=== PATIENT | male | born 1935 | race Caucasian/White ===

== ENCOUNTER 2019-03-31 07:45 | Day surgery (SDC) | payer MEDICARE, OTHER ==
[~2019-03-31 07:45] MED LIST: Lactated Ringers 1,000 ML IV SCH
[2019-03-31] MEDS ORDERED: Meropenem 500 MG in Sodium Chloride 0.9% 50 ML IV ONE (08:00)
[2019-03-31] MEDS ORDERED: Propofol 200 MG/20 ML SDV ONE (10:08)
[2019-03-31] MEDS ORDERED: Labetalol 20 MG/4 ML Syringe IV ONE ×2 (10:30→11:15)
[2019-03-31] MEDS ORDERED: Labetalol 20 MG/4 ML Syringe IVPUSH ONE (10:43)
[2019-03-31] MEDS ORDERED: Sodium Chloride 0.9% 80 ML IV ONE (11:28)
[2019-03-31] MEDS ORDERED: Sodium Chloride 0.9% 10 ML Syringe FLUSH ONE (11:28)
[2019-03-31] MEDS ORDERED: Iopamidol 612 MG/ML 100 ML Bottle IV SCH (11:30)
[2019-03-31 13:00] VITALS: BP 119/81
--- NOTE | 2019-03-31 13:33 | CRLCT ---
INDICATION: Rectal carcinoma. TECHNIQUE: CT chest, abdomen and pelvis acquired with 100 cc Isovue IV contrast. COMPARISON: CT abdomen pelvis October 09, 2016. FINDINGS: CHEST Lungs and pleura: Lungs are clear. No suspicious nodules or infiltrates. No effusions, thickening, or pneumothorax. Heart and vasculature: Heart size is normal. Thoracic aorta and pulmonary artery are normal in caliber. Lymph node/mediastinum: No mediastinal, hilar, or axillary adenopathy. Thyroid gland is normal. Chest wall: Normal. Bones: No suspicious bone lesions. ABDOMEN AND PELVIS: Liver: Small ill-defined 10 mm low attenuation lesion is in the inferior right lobe on series 2, image 125. Gallbladder and bile ducts: Unremarkable. Pancreas: Unremarkable. Spleen: Normal in caliber. No masses. Adrenal glands: Unremarkable. No masses. Kidneys: Multiple benign-appearing cysts are present. Otherwise unremarkable kidneys. GI tract: There is wall thickening in the rectal region. Remainder of the GI tract is within normal limits in caliber and appearance. The appendix is minimally enlarged with mild adjacent fat stranding as demonstrated on series 2, image 175. Vasculature: Unremarkable. Mesenteric arteries are patent. Lymph nodes: No lymphadenopathy. Omentum/peritoneum/retroperitoneum/abdominal wall: No masses or infiltration. No free air or significant free fluid. Pelvic organs: Marked prostate gland enlargement. Urinary bladder is unremarkable. Bones: No suspicious bone lesions. IMPRESSION: 1. Wall thickening in the rectum consistent with the diagnosis of rectal carcinoma. 2. Single small 10 mm lesion in the inferior right lobe of the liver is too small to characterize. This could be further evaluated with ultrasound. 3. No other signs of acute or metastatic disease in the chest, abdomen or pelvis. 4. Prostatomegaly. Please note that all CT scans at this facility use dose modulation, iterative reconstruction, and/or weight-based dosing when appropriate to reduce radiation dose to as low as reasonably achievable. Dictated by William Eden MD @ Mar 31 2019 1:02PM Signed by Dr. William Eden @ Mar 31 2019 1:31PM
--- NOTE | 2019-04-01 13:49 | OR ---
DATE OF PROCEDURE: 03/31/2019 SURGEON: Sanchez Davdi MD PREOPERATIVE DIAGNOSIS: Rectal bleeding. 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 OPERATIVE PROCEDURE: Flexible colonoscopy with: 1. Polypectomy of edge of rectal carcinoma by snare technique (44347). 2. Multiple biopsies of a rectal mass (26018). ANESTHESIA: IV sedation. INDICATIONS FOR PROCEDURE: This is an 83-year-old presenting with some rectal bleeding, generally occurring after bowel movements. Our initial assumption was this was probably going to be a problem of internal hemorrhoids. To rule out other problems, plan was made to proceed with a flexible colonoscopy with biopsies and/or polypectomy as indicated. Potential risks of the procedure including bleeding and perforation were discussed, and the patient wishes to proceed. DETAILS OF PROCEDURE: The patient was taken to the operating room and placed in a left lateral decubitus position. IV sedation was administered, after which the initial digital rectal exam was performed. At the very tip of the finger with fairly hard upper pressure, a mass effect was able to be palpated. The scope was then passed into the rectum. The patient was noted to have no significant hemorrhoids, but did have an obvious carcinoma occupying roughly one third of the circumference beginning at around 6 mm from the dentate line. This had some blood on the surface. At that point, the scope was passed beyond that, and the remainder of the colon to the level of the cecum was otherwise unremarkable. At this point, a polypoid edge of the mass was excised by means of a snare cautery, and that segment, which was roughly the size of a pea, was sent intact as a separate specimen. Multiple biopsies were then obtained at various points around the rectal mass and sent for histologic evaluation as well. There was a small amount of bleeding present, which seemed to stop at the time the procedure was ended, and the scope was then withdrawn, and the procedure then concluded. This was a tumor that is low enough that there may be venous flow into the pudendal system, i.e. he would be at high risk for nonliver metastasis. Given this, the patient underwent a CAT scan of the chest, abdomen, and pelvis. This showed questionable lesion in the liver, which will probably be benign and will be per the radiologic recommendations assessed with ultrasound on Thursday. Otherwise, the patient was noted to have the obvious rectal mass, but no other additional pathology was seen on CT scan. The plan will be to set the patient up with Medical Oncology appointment for this coming Thursday, which by then we should have a pathology report. This case probably would be best treated with preoperative chemoradiation followed by resection, which at that point should be reasonably likely to have a primary anastomosis, along with a proximal ileostomy diversion as a temporary measure. This was all discussed with the patient, as well as the patient's , who is Dr. Castellanos, and they wished to proceed in that direction. Sanchez David MD /[id number]
== END 2019-03-31 13:56 | disposition home or self-care (01) ==
LOC: JP.SDS 07:45
PROVIDERS: ATTEND Surgery
DX: C20 Malignant neoplasm of rectum (principal); D12.8 Benign neoplasm of rectum; I10 Essential (primary) hypertension; E78.5 Hyperlipidemia, unspecified; N17.9 Acute kidney failure, unspecified; N40.0 Benign prostatic hyperplasia without lower urinary tract symptoms; J44.9 Chronic obstructive pulmonary disease, unspecified; M48.00 Spinal stenosis, site unspecified; G89.4 Chronic pain syndrome; M54.9 Dorsalgia, unspecified; F32.9 Major depressive disorder, single episode, unspecified; Z79.899 Other long term (current) drug therapy; Z79.1 Long term (current) use of non-steroidal anti-inflammatories (NSAID)
CPT/HCPCS: 36415; 45380; 45385; 71260; 74177; 80053; 82378; 85027; J2185; J2704; J3490; J7030; J7050; J7120; Q9967

== ENCOUNTER 2019-08-04 09:51 | Inpatient (IN) | payer MEDICARE, OTHER ==
[2019-08-04] MEDS: Scopolamine 1.5 MG Transdermal Patch TOP SCH (10:12)
[2019-08-04] MEDS: Dextrose 5%-Lactated Ringers 1,000 ML IV SCH ×2 (10:13→19:44)
[2019-08-04] MEDS ORDERED: Gabapentin 300 MG Cap PO ONE (10:30)
[2019-08-04] MEDS ORDERED: Acetaminophen 500 MG Tab PO ONE (10:30)
[2019-08-04] MEDS ORDERED: cefOXitin 2 GM in Sodium Chloride 0.9% 50 ML IV ONE (10:30)
[2019-08-04] MEDS ORDERED: Meropenem 500 MG SDV ONE ×3 (11:39→17:12)
[2019-08-04] MEDS ORDERED: Succinylcholine 200 MG/10 ML MDV ONE (11:48)
[2019-08-04] MEDS ORDERED: Dexamethasone 4 MG/ML SDV ONE (11:48)
[2019-08-04] MEDS ORDERED: Rocuronium 50 MG/5 ML Vial ONE ×2 (11:48→14:27)
[2019-08-04] MEDS ORDERED: Neostigmine Methylsulfate 1 MG/ML 5 ML Syringe ONE (11:48)
[2019-08-04] MEDS ORDERED: Glycopyrrolate 0.2 MG/ML 5 ML MDV ONE (11:48)
[2019-08-04] MEDS ORDERED: Ondansetron 4 MG/2 ML SDV ONE (11:48)
[2019-08-04] MEDS ORDERED: Propofol 200 MG/20 ML SDV ONE (11:48)
[2019-08-04] MEDS ORDERED: fentaNYL 250 MCG/5 ML SDV ONE (11:48)
[2019-08-04] MEDS ORDERED: Sodium Chloride 0.9% 10 ML ONE ×2 (11:52→13:12)
[2019-08-04] MEDS ORDERED: Naloxone 0.4 MG/ML SDV IVPUSH PRN ×3 (12:30→19:09)
[2019-08-04] MEDS ORDERED: Lactated Ringers 1,000 ML ONE ×2 (12:45→15:04)
[2019-08-04] MEDS ORDERED: ePHEDrine 50 MG/ML SDV ONE (13:12)
[2019-08-04] MEDS ORDERED: Phenylephrine 1% 10 MG/ML SDV ONE (13:30)
[2019-08-04] MEDS ORDERED: Atropine 0.4 MG/ML SDV ONE (14:31)
[2019-08-04] MEDS ORDERED: Ondansetron 4 MG/2 ML SDV IVPUSH PRN (17:46)
[2019-08-04] MEDS ORDERED: hydrOXYzine HCl 100 MG/2 ML SDV IM PRN (17:47)
[2019-08-04] MEDS ORDERED: Metoclopramide 10 MG/2 ML SDV IVPUSH ONE (17:55)
[2019-08-04] MEDS ORDERED: Naloxone 0.4 MG/ML SDV IVPUSH ONE (17:55)
[2019-08-04] MEDS ORDERED: Meperidine PF 25 MG/ML Syringe IVPUSH ONE (17:55)
[2019-08-04] MEDS ORDERED: Labetalol 100 MG/20 ML MDV IVPUSH PRN (17:55)
[2019-08-04] MEDS ORDERED: Ondansetron 4 MG/2 ML SDV IVPUSH ONE (17:55)
[2019-08-04] MEDS: fentaNYL 2,500 MCG in Sodium Chloride 0.9% 200 ML EPIDUR SCH (18:00)
[2019-08-04] MEDS ORDERED: Atropine 0.1 MG/ML 10 ML Syringe IV PRN (18:01)
[2019-08-04] MEDS ORDERED: fentaNYL/Normal Saline 600 MCG/30 ML PCA Vial IV PRN (18:39)
[2019-08-04] MEDS ORDERED: diphenhydrAMINE 50 MG/ML SDV IV PRN (18:42)
[2019-08-04] MEDS ORDERED: Naloxone 0.4 MG/ML SDV IV PRN (19:09)
[2019-08-04] MEDS ORDERED: fentaNYL 2,500 MCG in Sodium Chloride 0.9% 200 ML EPIDUR SCH (19:09)
[2019-08-04] MEDS: cefOXitin 2 GM in Sodium Chloride 0.9% 50 ML IV SCH (19:44)
[2019-08-04] MEDS: Acetaminophen 500 MG Tab PO SCH (19:59)
[2019-08-04] MEDS ORDERED: Dorzolamide 2% Ophth Soln 10 ML Bottle EYEBOTH SCH (21:00)
[2019-08-05] MEDS: cefOXitin 2 GM in Sodium Chloride 0.9% 50 ML IV SCH ×5 (00:21→23:55)
[2019-08-05] MEDS: Acetaminophen 500 MG Tab PO SCH ×4 (00:21→17:01)
[2019-08-05] MEDS: Dextrose 5%-Lactated Ringers 1,000 ML IV SCH ×4 (05:46→21:43)
[2019-08-05] MEDS ORDERED: Calcium Carbonate 500 MG Tab.Chew PO PRN (07:47)
[2019-08-05] MEDS: Dutasteride 0.5 MG Cap PO SCH (08:02)
[2019-08-05] MEDS: SCOPOLAMINE PATCH CHECK TOP SCH (08:04)
[2019-08-05] MEDS: Timolol Maleate 0.5% Ophth Soln 5 ML Bottle EYEBOTH SCH (08:05)
[2019-08-05] MEDS: Mirabegron 25 MG Tab Extended Release PO SCH (08:08)
[2019-08-05] MEDS: Aspirin 81 MG Tab.Chew PO SCH (08:08)
[2019-08-05] MEDS: Gabapentin 300 MG Cap PO SCH (08:08)
[2019-08-05] MEDS: Venlafaxine 75 MG Cap.ER PO SCH (08:08)
[2019-08-05] MEDS: amLODIPine 5 MG Tab PO SCH (08:09)
[2019-08-05] MEDS: Metoprolol Succinate 25 MG Tab.ER PO SCH (08:09)
[2019-08-05] MEDS: Dorzolamide 2% Ophth Soln 10 ML Bottle EYERT SCH (08:09)
[2019-08-05] MEDS: Tamsulosin 0.4 MG Cap.ER PO SCH ×2 (09:56→16:56)
--- NOTE | 2019-08-05 10:40 | PN ---
DATE OF SERVICE: 08/05/2019 SUBJECTIVE: Dalton is postop day 1. He has an epidural and pain has been controlled. Vital signs have been stable. He is alert and orientated. Oral intake 780 and urine output 435, and CHLOE put out 140 mL of a light red drainage. His urine output was marginal between 30 and 40 postop. Blood sugar was noted at 226 and will be continued to be watched. REVIEW OF SYSTEMS: Remainder of review of systems negative for any pertinent positives and negatives. OBJECTIVE: GENERAL: Dalton Carey is an 84-year-old male. He is alert and orientated. VITAL SIGNS: TPR 95.9, 78, 14, blood pressure 151/74. HEENT: Negative. NECK: Supple. HEART: Regular rate and rhythm. LUNGS: Clear. ABDOMEN: Dressing dry and intact. Abdominal binder is on. EXTREMITIES: Without peripheral edema. ASSESSMENT: Exploratory laparotomy with rectosigmoid resection with low coloproctostomy and ileostomy for low rectal adenocarcinoma status post neoadjuvant E COMMERCE STRATEGIST. Date of surgery, 08/04/2019. PLAN: 1. Decrease IV to 100 mL/hour at 1800. 2. Schedule delayed primary closure on 08/06/2019 with IV/local/TAP block at 0730, Sanchez David MD. NPO after midnight. 3. Soft solid diet. 4. Communication order that he may have and his will bring it in. 5. Flomax 0.4 mg b.i.d. starting this a.m. Good pulmonary toilet. We will evaluate p.r.n. or in a.m. Liz Dai PA-C /[id number]
[2019-08-05] MEDS ORDERED: Lactated Ringers 500 ML IV ONE ×2 (11:42→15:43)
[2019-08-05] MEDS ORDERED: Dextrose 5%-Lactated Ringers 1,000 ML IV SCH (18:00)
[2019-08-05] MEDS ORDERED: Furosemide 20 MG/2 ML VIAL IVPUSH ONE (21:35)
[2019-08-05] MEDS: fentaNYL 2,500 MCG in Sodium Chloride 0.9% 200 ML EPIDUR SCH (21:41)
[2019-08-06] MEDS: Acetaminophen 500 MG Tab PO SCH ×4 (00:39→17:27)
[2019-08-06] MEDS: Dextrose 5%-Lactated Ringers 1,000 ML IV SCH ×3 (04:04→19:17)
[2019-08-06] MEDS: cefOXitin 2 GM in Sodium Chloride 0.9% 50 ML IV SCH ×2 (05:14→11:04)
[2019-08-06] MEDS ORDERED: Bupivacaine 0.5% 50 ML MDV ONE (06:19)
[2019-08-06] MEDS ORDERED: Lidocaine 1% with EPINEPHrine 1:100,000 50 ML MDV ONE (06:20)
[2019-08-06] MEDS ORDERED: Meropenem 500 MG SDV ONE (06:23)
[2019-08-06] MEDS ORDERED: Propofol 200 MG/20 ML SDV ONE (07:17)
[2019-08-06] MEDS ORDERED: fentaNYL 100 MCG/2 ML SDV ONE (07:36)
[2019-08-06] MEDS: Furosemide 20 MG/2 ML VIAL IVPUSH SCH ×2 (10:07→22:02)
[2019-08-06] MEDS: SCOPOLAMINE PATCH CHECK TOP SCH (10:50)
[2019-08-06] MEDS: traMADol 50 MG Tab PO SCH ×3 (10:51→22:02)
[2019-08-06] MEDS: Aspirin 81 MG Tab.Chew PO SCH (10:57)
[2019-08-06] MEDS: Mirabegron 25 MG Tab Extended Release PO SCH (10:57)
[2019-08-06] MEDS: Tamsulosin 0.4 MG Cap.ER PO SCH ×2 (10:57→17:27)
[2019-08-06] MEDS: Venlafaxine 75 MG Cap.ER PO SCH (10:58)
[2019-08-06] MEDS: Dutasteride 0.5 MG Cap PO SCH (10:58)
[2019-08-06] MEDS: Dorzolamide 2% Ophth Soln 10 ML Bottle EYERT SCH (10:59)
[2019-08-06] MEDS: Gabapentin 300 MG Cap PO SCH (10:59)
[2019-08-06] MEDS: amLODIPine 5 MG Tab PO SCH (10:59)
[2019-08-06] MEDS: Timolol Maleate 0.5% Ophth Soln 5 ML Bottle EYEBOTH SCH (10:59)
[2019-08-06] MEDS: Metoprolol Succinate 25 MG Tab.ER PO SCH (11:00)
[2019-08-07] MEDS: Acetaminophen 500 MG Tab PO SCH ×5 (00:05→23:14)
[2019-08-07] MEDS: traMADol 50 MG Tab PO SCH ×4 (03:21→21:43)
[2019-08-07] MEDS: Dextrose 5%-Lactated Ringers 1,000 ML IV SCH (04:54)
[2019-08-07] MEDS: fentaNYL 2,500 MCG in Sodium Chloride 0.9% 200 ML EPIDUR SCH (04:58)
[2019-08-07] MEDS ORDERED: Magnesium Sulfate/Water 2 GM in Premix Bag 1 BAG IV SCH (08:00)
[2019-08-07] MEDS ORDERED: Furosemide 20 MG/2 ML VIAL IVPUSH ONE (09:00)
[2019-08-07] MEDS: Tamsulosin 0.4 MG Cap.ER PO SCH ×2 (09:55→16:31)
[2019-08-07] MEDS: Aspirin 81 MG Tab.Chew PO SCH (09:56)
[2019-08-07] MEDS: amLODIPine 5 MG Tab PO SCH (09:56)
[2019-08-07] MEDS: Venlafaxine 75 MG Cap.ER PO SCH (09:57)
[2019-08-07] MEDS: Gabapentin 300 MG Cap PO SCH (09:57)
[2019-08-07] MEDS: Mirabegron 25 MG Tab Extended Release PO SCH (09:57)
[2019-08-07] MEDS: Metoprolol Succinate 25 MG Tab.ER PO SCH (09:58)
[2019-08-07] MEDS: Dorzolamide 2% Ophth Soln 10 ML Bottle EYERT SCH (09:59)
[2019-08-07] MEDS: Timolol Maleate 0.5% Ophth Soln 5 ML Bottle EYEBOTH SCH (10:00)
[2019-08-07] MEDS: SCOPOLAMINE PATCH CHECK TOP SCH (10:00)
[2019-08-07] MEDS: Dutasteride 0.5 MG Cap PO SCH (10:01)
[2019-08-07] MEDS: Prochlorperazine 10 MG Tab PO PRN ×3 (10:29→23:14)
[2019-08-07] MEDS: Potassium Phosphates 22.5 MMOLE in Sodium Chloride 0.9% 250 ML IV SCH ×2 (12:50→15:52)
[2019-08-07] MEDS: Scopolamine 1.5 MG Transdermal Patch TOP SCH (14:47)
[2019-08-07] MEDS: Magnesium Sulfate/Water 2 GM in Premix Bag 1 BAG IV SCH ×2 (18:46→21:00)
[2019-08-07] MEDS: Sodium Chloride 0.9% 500 ML IV SCH (18:46)
[2019-08-08] MEDS: Magnesium Sulfate/Water 2 GM in Premix Bag 1 BAG IV SCH ×4 (04:01→22:42)
[2019-08-08] MEDS: traMADol 50 MG Tab PO SCH (04:01)
[2019-08-08] MEDS: Acetaminophen 500 MG Tab PO SCH ×3 (05:57→17:24)
[2019-08-08] MEDS ORDERED: traMADol 50 MG Tab PO PRN (07:11)
[2019-08-08] MEDS: Tamsulosin 0.4 MG Cap.ER PO SCH ×2 (07:55→16:37)
[2019-08-08] MEDS: Aspirin 81 MG Tab.Chew PO SCH (08:55)
[2019-08-08] MEDS: amLODIPine 5 MG Tab PO SCH (08:55)
[2019-08-08] MEDS: Venlafaxine 75 MG Cap.ER PO SCH (08:56)
[2019-08-08] MEDS: Mirabegron 25 MG Tab Extended Release PO SCH (08:56)
[2019-08-08] MEDS: Dutasteride 0.5 MG Cap PO SCH (08:57)
[2019-08-08] MEDS: Metoprolol Succinate 25 MG Tab.ER PO SCH (08:58)
[2019-08-08] MEDS ORDERED: Furosemide 20 MG/2 ML VIAL IV ONE (09:00)
[2019-08-08] MEDS: Dorzolamide 2% Ophth Soln 10 ML Bottle EYERT SCH (09:00)
[2019-08-08] MEDS: SCOPOLAMINE PATCH CHECK TOP SCH (09:00)
[2019-08-08] MEDS: Timolol Maleate 0.5% Ophth Soln 5 ML Bottle EYEBOTH SCH (09:00)
[2019-08-08] MEDS: Gabapentin 300 MG Cap PO SCH (09:01)
--- NOTE | 2019-08-08 11:39 | OR ---
DATE OF PROCEDURE: 08/04/2019 SURGEON: Sanchez David MD PREOPERATIVE DIAGNOSIS: Low rectal adenocarcinoma. POSTOPERATIVE DIAGNOSIS: Low rectal adenocarcinoma. OPERATIVE PROCEDURES: Exploratory laparotomy with: 1. Rectosigmoid resection with low coloproctostomy (48555). 2. Diverting ileostomy (42364). 3. Mobilization of omentum into pelvis to displace small bowel from potential subsequent radiation radford (19098). ANESTHESIA: General plus epidural. SURVEY CREW CHIEF: Liz Dai PA-C. INDICATION FOR PROCEDURE: This is an 84-year-old male who was recently noted to have a fairly bulky low adenocarcinoma of the rectum. The patient successfully completed preoperative neoadjuvant chemoradiation treatment. The plan is to proceed with a resection of the tumor. Most likely, this one can be anastomosed with a low coloproctostomy. He is aware of possible need for a permanent colostomy if we are not able to get below the tumor adequately and thus requiring an abdominoperitoneal resection. If the anastomosis is able to be completed, a diverting ileostomy, which would need to be in place for at least 3 months, will be placed to protect the coloproctostomy. Potential risks of the procedure were reviewed with the patient including bleeding, infection, possible leaks from GI tract closures, possibility of incomplete resection on final pathology, as well as the possibility of local or distant recurrence, and lastly the possibility of cardiopulmonary, septic, or hemorrhagic complications leading to were discussed, and the patient likewise wishes to proceed. DETAILS OF PROCEDURE: The patient was taken to the operating room and placed in a supine position. After an epidural catheter had been placed, general endotracheal anesthesia was induced, and he was then converted to a lithotomy position. A Perez catheter was inserted, and the abdomen was prepped and draped. A midline incision from the pubis to the umbilicus was made and carried down through the full-thickness abdominal wall. Gentle exploration was undertaken. There was no ascites present and no evidence of any peritoneal implants. There did not appear to be any lymphadenopathy within the mesenteric vessels or periaortic areas, and liver was free of any obvious metastatic disease. The resection then began with division of the mid-sigmoid colon with the REMY stapler. The underlying mesentery was then divided and the superior hemorrhoidal vessels were then divided flushed with the takeoff at the level of the left colic vessel with REMY staplers. Both ureters at this point had been identified and were well away from the level of the resection. This then allowed entrance into the presacral plane. At that point, this could be fairly easily dissected down to the pelvic floor with a combination of blunt and Sonicision division of the tissues. Next, the peritoneal reflection of the rectum onto the urinary bladder and prostate was divided. This then allowed dissection into the plane just posterior to the prostate. Again, this being taken down to the level of the pelvic floor, consistent with a total mesorectal excision. The soft tissues more or less flush with the side of the pelvis were then sequentially divided with combination of emory and Sonicision device. This eventually got us down to the level of the tumor and somewhat below it. With hand at the level of the initial transection, a digital exam confirmed that this was below the tumor, and rectum was divided then with a series of REMY black loads. Off the field, the specimen was examined. The mucosal surface appeared to be fairly close to the tumor, probably about 1 cm and it was felt that it would be beneficial to try to get slightly more of a margin. The rectum was then further freed up with combination of cautery and Harmonic scalpel dissection and additional resection of the rectum then accomplished with a REMY stapler. The distal margin of this was then marked with a suture for pathologic exam. Of note, there did not appear to be any significant lymphadenopathy evident during the course of the resection. The appearance of the total mesorectal excision specimen, of note, was very satisfactory in terms of there being a nice glistening, that layer more or less surrounded the entire colon and rectum other than the area of the sigmoid colon above the peritoneal reflection. At this point, the descending colon was divided along the peritoneal reflection, and this allowed the divided colon to reach down into the depths of the pelvis without significant tension. 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 The anvil of this stapler was then placed through a small opening in divided colon, which was then re-stapled, and the anvil brought out roughly 3 cm proximal to the new staple line on the antimesenteric border. Again, this came down into the level of the pelvic floor without tension. The anus then needed to be digitally dilated somewhat to allow the main stapler to be passed into the anal opening and distal-most rectum. This was brought up and attached to the anvil and stapler then closed and fired, producing the coloproctostomy. Upon removal of the stapler, double donuts of mucosa were noted within it. The rectal side of the mucosal specimen was then sent as a final distal margin for pathologic review. The colon was then pinched off, and the pelvis then flooded with antibiotic-containing saline solution. Colonoscope was then passed into the rectum, and the anastomosis was visualized. It appeared to be entirely intact with good blood supply to the mucosa on both sides and no air bubbles were seen escaping from the area of the anastomosis. At this point, the abdomen was irrigated with antibiotic-containing saline solution. 6 mL of fibrin sealant was then placed circumferentially around the anastomosis. The anastomosis was too low to actually visualize with the patient having fairly narrow pelvis and somewhat enlarged urinary bladder, but the fibrin sealant could be passed with a flexible catheter circumferentially around the anastomosis. At this point, a Maycol-Boyd drain was then placed through stab wound in the left mid-abdomen and taken down into the depths of the pelvis and adjacent to the coloproctostomy. At this point, attention was taken to formation of the ileostomy. The ileum, roughly 20 cm proximal to the ileocecal valve, then came up to premarked location on the patient's right lower quadrant abdomen. A 2.5 cm circular area of skin was then resected at that level. The rectus muscle fibers were then spread, but not divided; and the peritoneum then opened and also spread wide enough to allow the ileostomy to be pulled. The distal and proximal ends of the ileum to be pulled upward were then marked with sutures for orientation, and the ileum was then easily pulled up through the ostomy site and then held in place there with a [place] clamp while the abdomen itself was being closed. The omentum was then mobilized downward into the pelvis in case the patient might need some additional radiation treatment, this would displace the small bowel out of the potential radiation field. This was sutured in place with some 3-0 Vicryl stitch to the area posterior to urinary bladder and pelvic sidewalls. The abdomen had been once again irrigated with a meropenem-containing saline solution. From the linea semilunaris downward, the posterior peritoneum was closed with a #2 Vicryl stitch and the anterior fascia was then closed for the length of incision with a #2 Vicryl stitch. The skin and subcutaneous tissue were then packed open with iodoform gauze. The ileostomy was then configured. Initially, 0 Vicryl suture was placed through the mesentery just below the site for the ileostomy and sutured to the fascia to help avoid it falling back into the abdomen. The distal end of the ileum, now up into the ileostomy site, was divided more or less 75% of its antimesenteric circumference. This then allowed the ileostomy sutured with series of interrupted and running 3-0 Vicryl sutures. This design would facilitate the vast majority of the liquid stool coming into the ileostomy, into the collection appliance, rather than going into the more distal small bowel. Once this was completed, the ileostomy appliance was applied, and the patient was taken to the recovery room in satisfactory condition. There were no evident complications. The patient tolerated the procedure well. Physician certified ophthalmic surgical assistant, Liz Dai, played an essential role in assisting in this case, helping to position the patient, retract structures as needed, as well as suturing and cutting sutures when indicated. Her presence improved patient safety and decreased the operative time. Sanchez David MD /[id number]
--- NOTE | 2019-08-08 11:39 | PN ---
DATE OF SERVICE: 08/08/2019 SUBJECTIVE: His Perez has been taken out. He is voiding every 1 to 1-1/2 hours. He said he is back to his "normal." Blood pressures have been running a little bit high, 160 to 190s/80 to 90s. He is getting magnesium riders. Enteric was discontinued because he started having bowel movements. Pain is controlled. Ultram was held. It was scheduled and nursing staff thought it made him confused, so it will be changed to p.r.n. REVIEW OF SYSTEMS: Remainder of review of systems negative for any pertinent positives or negatives. Of note, colostomy put out 575. OBJECTIVE: GENERAL: Dalton Carey is an 84-year-old male. He is alert and orientated. VITAL SIGNS: Temperature from 0227 was 95, pulse 95, respirations 18, blood pressure from 0316 was 180/82. HEENT: Negative. NECK: Supple. HEART: Regular rate and rhythm. LUNGS: Clear. ABDOMEN: Dressing dry and intact. Ileostomy intact, and there is stool noted, and emory intact. EXTREMITIES: Without peripheral edema. ASSESSMENT: Exploratory laparotomy with rectosigmoid resection with low coloproctostomy and ileostomy for low rectal adenocarcinoma, status post neoadjuvant MANAGER CULTURE. Date of surgery 08/04/2019. PLAN: 1. Lasix 10 mg IV this a.m. 2. Check BMP, phos, CBC in a.m. 3. Ultram (tramadol) 50 mg every 6 hours p.r.n. pain. 4. Good pulmonary toilet. 5. We will evaluate p.r.n. or in a.m. 6. Plan discharge in a.m. to Home Healthcare. Liz Dai PA-C /[id number]
--- NOTE | 2019-08-08 11:40 | OR ---
DATE OF PROCEDURE: 08/06/2019 SURGEON: Sanchez David MD PREOPERATIVE DIAGNOSIS: Open abdominal incision. POSTOPERATIVE DIAGNOSIS: Open abdominal incision. PROCEDURE: Delayed primary closure of open abdominal incision. ANESTHESIA: Local plus IV sedation. INDICATION FOR PROCEDURE: The patient is 48 hours status post a low anterior resection with some inherent contamination, is felt to be at high of risk for a wound infection if primary closure was undertaken. Given this at the time of procedure, skin and subcutaneous tissue were packed open for a planned delayed primary closure at this time. Potential risks including bleeding and infection were discussed, and the patient wishes to proceed. DETAILS OF PROCEDURE: The patient was taken to the operating room and placed in a supine position with the head up roughly 30 degrees to minimize aspiration risk. The abdominal dressing was then taken down and the abdomen prepped and draped. The wound was inspected and found to be clean and the area was then prepped and draped. Bilateral subcostal transversus abdominis plane blocks were then placed using ultrasound guidance and the incision then anesthetized with 1% lidocaine mixed with Marcaine and irrigated with a meropenem-containing saline solution. The deeper soft tissue was approximated with a deeper layer of 3-0 Vicryl stitch, subdermal layer with 4-0 Vicryl stitch, and emory for the skin and dressing was applied. There were no other complications. The patient was taken to the recovery room in satisfactory condition. Sanchez David MD /[id number]
--- NOTE | 2019-08-08 11:54 | PN ---
DATE OF SERVICE: 08/06/2019 The patient has been afebrile with stable vital signs. Nursing thought there maybe a little bit of fluid overload last night and received 20 of Lasix IV. He had a fair amount of urine output. His IV rate has been running around 40 mL now. Did believe the IV rate running a little faster today during the daytime and perhaps we give him some Lasix. We will recheck some labs in the morning. Otherwise, he has had a little bit of nausea, but the ileostomy is working satisfactorily. Pain control with the epidural is quite good, and we will leave that along with Perez catheter in for today, and we will probably get those out tomorrow. He underwent the delayed primary closure without incident. Sanchez David MD /[id number]
--- NOTE | 2019-08-08 12:25 | PN ---
DATE OF SERVICE: 08/07/2019 The patient has been afebrile with stable vital signs. Urine output has now picked up fairly well. His creatinine actually decreased to 0.6, and BNP is in the 300 range. Oral intake is fairly good. He still does have a little bit of intermittent nausea and some hiccups, for which he takes Compazine at home for. Magnesium, phosphate, and potassium are all marginally low. Those will be supplemented. Otherwise, I think we will give him one more dose of Lasix this morning. Otherwise, the idea will be to keep open, discontinue epidural catheter and Perez catheter, have him get in the shower to bathe, and arrange ileostomy training and supplies to be set up for tomorrow for planned probable discharge on Thursday. Sanchez David MD /[id number]
[2019-08-08] MEDS: Sodium Chloride 0.9% 500 ML IV SCH (15:47)
[2019-08-09] MEDS: Acetaminophen 500 MG Tab PO SCH ×3 (00:38→12:56)
[2019-08-09] MEDS: Magnesium Sulfate/Water 2 GM in Premix Bag 1 BAG IV SCH (04:09)
[2019-08-09] MEDS ORDERED: Potassium Chloride 20 MEQ Tab.ER PO ONE ×2 (05:19→09:00)
[2019-08-09] MEDS ORDERED: Potassium Chloride 20 MEQ in Premix Bag 1 BAG IV ONE ×2 (05:21→07:30)
--- NOTE | 2019-08-09 08:23 | DISCH ---
ADMISSION DIAGNOSES: 1. Rectal cancer. 2. Hypertension. 3. Depression. 4. Unspecified hyperlipidemia. 5. Benign prostate hyperplasia. 6. PSA elevation. 7. Overactive bladder. 8. Incomplete bladder emptying. 9. Spinal stenosis. 10.Chronic obstructive pulmonary disease. DISCHARGE DIAGNOSES: Exploratory laparotomy with: 1. Rectosigmoid resection with low coloproctostomy. 2. Diverting ileostomy. 3. Mobilization of omentum into pelvis to displace small bowel from potential subsequent radiation field. POSTOPERATIVE DIAGNOSES: 1. Low rectal adenocarcinoma. Date of surgery: 08/04/2019. 2. Delayed primary closure on 08/06/2019. HISTORY: Dalton is a pleasant 84-year-old male who was recently noted to have a fairly bulky low adenocarcinoma of the rectum. He completed preoperative neoadjunct chemoradiation treatment. The plan is to proceed with resection of the tumor. After preoperative evaluation, discussion of possible risks and possible complications, he wished to proceed with surgical procedure. HOSPITAL COURSE: Dalton had his surgery on 08/04/2019. He had no operative complications. His diet was advanced. He had delayed primary. His pain was controlled with an epidural. He had delayed primary closure on 08/06/2019. He continued to progress. He ambulated well as pain was controlled. He started having bowel movements through his ileostomy. Adequate ileostomy teaching was done. He did have difficulty voiding which is chronic for him. His folding had to be put back in after it was taken out when the epidural was discontinued. Currently, on Flomax in addition to his other medications for urination and he feels like this is helping quite a bit. Throughout his hospitalization, magnesium and K-Phos were replaced. He continued to progress. He will be able to be discharged to home in stable condition on 08/09/2019. PHYSICAL EXAMINATION: GENERAL: Dalton is an 84-year-old male. VITAL SIGNS: Height is 5 feet 10.8 inches, weight is 188 pounds. TPR is 96.3, 94, 16, blood pressure 157/76. HEENT: Negative. NECK: Supple. HEART: Regular rate and rhythm. LUNGS: Clear. ABDOMEN: Ileostomy and intact. Stapled incision is healing well. EXTREMITIES: Without peripheral edema. DISPOSITION: Discharged to home with home health care agent. CONDITION: Stable and improving. HOME MEDICATIONS: 1. Klor-Con 20 mEq p.o. daily, #14. 2. Flomax 0.4 mg p.o. b.i.d. #60, 11 refills. 3. He is to take Tylenol Extra Strength 1000 mg every 6 hours p.r.n. pain. 4. Norvasc 5 mg oral daily. 5. Aspirin 81 mg oral daily. 6. Trusopt 2% ophthalmic solution, take as directed. 7. Dorzolamide HCL one drop in each eye b.i.d. 8. Avodart 0.5 mg p.o. daily. 9. Gabapentin 300 mg daily. 10.Metoprolol-XL 12.5 mg p.o. daily. 11.Mirabegron ER 50 mg p.o. daily. 12.Compazine 10 mg every 6 hours. 13.Timoptic 0.5%, Ocudose drop, one drop in each eye daily. 14.Venlafaxine 225 mg p.o. daily. FOLLOWUP APPOINTMENT: Sanchez David MD, on 08/17/2019 at 11 a.m. DIET: Regular diet as tolerated. Drink 8 to 10 glasses of water a day. ACTIVITY: No lifting greater than 10 pounds for 1 week. Walk at least 6 times daily, distance and time as tolerated. Driving: Do not drive for 1 week. Shower/Bathing: May shower. Keep operative site clean and dry. Wear abdominal binder if you feel it is comfortable. DISCHARGE INSTRUCTIONS: Notify provider if any fever, increased pain, nausea, vomiting. Use incentive spirometer 10 times every hour while awake.
[2019-08-09] MEDS ORDERED: Potassium Chloride 20 MEQ, Lidocaine 1% 2 ML in Sodium Chloride 0.9% 100 ML IV ONE (08:30)
[2019-08-09] MEDS: Dutasteride 0.5 MG Cap PO SCH (08:54)
[2019-08-09] MEDS: Tamsulosin 0.4 MG Cap.ER PO SCH (08:54)
[2019-08-09] MEDS: Venlafaxine 75 MG Cap.ER PO SCH (08:54)
[2019-08-09] MEDS: Aspirin 81 MG Tab.Chew PO SCH (08:54)
[2019-08-09] MEDS: Metoprolol Succinate 25 MG Tab.ER PO SCH (08:55)
[2019-08-09] MEDS: Mirabegron 25 MG Tab Extended Release PO SCH (08:55)
[2019-08-09] MEDS: Gabapentin 300 MG Cap PO SCH (08:55)
[2019-08-09] MEDS: amLODIPine 5 MG Tab PO SCH (08:56)
[2019-08-09] MEDS: SCOPOLAMINE PATCH CHECK TOP SCH (08:57)
[2019-08-09] MEDS: Timolol Maleate 0.5% Ophth Soln 5 ML Bottle EYEBOTH SCH (08:58)
[2019-08-09] MEDS: Dorzolamide 2% Ophth Soln 10 ML Bottle EYERT SCH (08:58)
[2019-08-09] MEDS ORDERED: Potassium Chloride 20 MEQ Tab.ER PO SCH (09:00)
[2019-08-09 11:33] VITALS: BP 174/88; PULSE 91
== END 2019-08-09 13:54 | disposition home health service (06) | DRG 331 ==
LOC: JP.SDSSCHI 09:51 → JP.SDS 09:51 → EDSTATUS 12:25 → JP.MS 17:30
PROVIDERS: ADMIT Surgery; ATTEND Surgery
PROC: 0D1B0Z4 Bypass Ileum to Cutaneous, Open Approach (ICD-10-PCS; principal; 2019-08-04)
PROC: 0D1M0ZP Bypass Descending Colon to Rectum, Open Approach (ICD-10-PCS; 2019-08-04)
PROC: 0DTN0ZZ Resection of Sigmoid Colon, Open Approach (ICD-10-PCS; 2019-08-04)
PROC: 0DTP0ZZ Resection of Rectum, Open Approach (ICD-10-PCS; 2019-08-04)
PROC: 0DJD8ZZ Inspection of Lower Intestinal Tract, Via Natural or Artificial Opening Endoscopic (ICD-10-PCS; 2019-08-04)
PROC: 0WQF0ZZ Repair Abdominal Wall, Open Approach (ICD-10-PCS; 2019-08-06)
DX: C20 Malignant neoplasm of rectum (principal); I10 Essential (primary) hypertension; F32.9 Major depressive disorder, single episode, unspecified; E78.5 Hyperlipidemia, unspecified; N32.81 Overactive bladder; J44.9 Chronic obstructive pulmonary disease, unspecified; N40.1 Benign prostatic hyperplasia with lower urinary tract symptoms; R33.8 Other retention of urine; M48.061 Spinal stenosis, lumbar region without neurogenic claudication; E87.70 Fluid overload, unspecified; M17.0 Bilateral primary osteoarthritis of knee; G89.29 Other chronic pain; M54.42 Lumbago with sciatica, left side; Z79.899 Other long term (current) drug therapy; Z79.82 Long term (current) use of aspirin; Z98.890 Other specified postprocedural states; Z90.89 Acquired absence of other organs
CPT/HCPCS: 36415; 51702; 80048; 80053; 82378; 83735; 83880; 84100; 85025; 85027; 86850; 86900; 86901; 88305; 88309; 94762; A9270-GY; J0171; J0330; J0461; J0694; J1100; J1940; J2001; J2185; J2370; J2405; J2704; J2710; J2795; J3010; J3475; J3480; J3490; J7030; J7040; J7042; J7050; J7120; Q0164

== ENCOUNTER 2019-08-24 12:15 | Inpatient (IN) | payer MEDICARE, OTHER ==
--- NOTE | 2019-08-24 15:24 | PCM.HP.2 ---
H&P History of Present Illness - General Date of Service: 08/24/19 Admit Problem/Dx: Admission Diagnosis/Problem Admission Diagnosis/Problem Acute renal failure Source of Information: Patient, Family, Provider History Limitations: Reports: No Limitations - History of Present Illness Initial Comments - Free Text/Narative: CC: sent for fluids HPI: Abdi presents today from the outpatient setting where he was referred for laboratory testing and IV fluid hydration. Laboratory studies revealed a creatinine of 3.5 with a BUN of nearly 100. He has mild hyponatremia. Direct admission for hydration and treatment of acute kidney injury was recommended. He reports that in general he feels okay other than feeling weak and tired. He has lost more than 40 pounds recently. He has been struggling with high output from his ileostomy but this seems to be slowing some. No significant abdominal pain. Did have some vomiting a few days ago but this has resolved. Appetite has been significantly decreased. He has been doing his best to push fluids and has had some IV fluids but remains dehydrated. No fevers. He is short of breath but this is baseline with a COPD. He is taking Bactrim to treat a possible infection in the abdomen after a fluid collection was noted on CT scan and his white blood cell count was mildly elevated. - Related Data Allergies/Adverse Reactions: Allergies Allergy/AdvReac Type Severity Reaction Status Date / Time No Known Allergies Allergy Verified 08/04/19 10:58 Home Medications: Home Meds Dutasteride [Avodart] 0.5 mg PO DAILY 08/08/16 [History] Timolol Maleate/PF [Timoptic 0.5% Ocudose Drop] 1 drop EYEBOTH DAILY 08/08/16 [ History] Venlafaxine [Effexor XR] 225 mg PO DAILY 08/08/16 [History] Metoprolol Succinate [Toprol XL] 12.5 mg PO DAILY 03/29/19 [History] Mirabegron [Myrbetriq] 50 mg PO DAILY 03/29/19 [History] amLODIPine [Norvasc] 5 mg PO DAILY 03/29/19 [History] Dorzolamide HCl 1 drop EYEBOTH BID 08/02/19 [History] Prochlorperazine [Compazine] 10 mg PO Q6HR PRN 08/02/19 [History] Dorzolamide [Trusopt 2% Ophth Soln] 10 ml EYERT DAILY 08/04/19 [History] Acetaminophen [Tylenol Extra Strength] 500 mg PO BID 08/24/19 [History] Sulfamethoxazole/Trimethoprim [Bactrim Ds Tablet] 1 tab PO BID 08/24/19 [History ] Past Medical History HEENT History: Reports: Cataract, Impaired Vision Cardiovascular History: Reports: Hypertension Respiratory History: Reports: COPD Gastrointestinal History: Reports: Other (See Below) Other Gastrointestinal History: history of rectal fissure Genitourinary History: Reports: Prostate Disorder Other Genitourinary History: enlarged prostate Musculoskeletal History: Reports: Arthritis, Back Pain, Chronic, Fracture Neurological History: Reports: None Psychiatric History: Reports: Bipolar Oncologic (Cancer) History: Reports: Colon, Other (See Below) Other Oncologic History: rectal - Infectious Disease History Infectious Disease History: Reports: Chicken Pox, Measles, Mumps - Past Surgical History HEENT Surgical History: Reports: Cataract Surgery, Detached Retina, Tonsillectomy Cardiovascular Surgical History: Reports: None Respiratory Surgical History: Reports: None GI Surgical History: Reports: Colonoscopy Neurological Surgical History: Reports: Laminectomy Musculoskeletal Surgical History: Reports: None, Knee Replacement Social & Family History - Family History Family Medical History: Noncontributory - Tobacco Use Smoking Status *Q: Unknown Ever Smoked - Caffeine Use Caffeine Use: Reports: Coffee - Alcohol Use Alcohol Use History: No H&P Review of Systems - Review of Systems: Review Of Systems: See Below Free Text/Narrative: A complete 12 point review of systems was obtained. Pertinent positives and negatives are noted in the history of present illness. All other systems were reviewed and were negative except as noted. Exam - Exam Exam: See Below - Vital Signs Vital Signs: Last Vital Signs Temp 35.9 C 08/24/19 12:16 Pulse 82 08/24/19 12:16 Resp 17 08/24/19 12:16 BP 156/99 H 08/24/19 12:16 Pulse Ox 100 08/24/19 12:16 Weight: 77.111 kg - Exam Quality Assessment: No: Supplemental Oxygen General: Alert, Oriented, Cooperative. No: Mild Distress HEENT: Conjunctiva Clear. No: Mucosa Moist & [place] (dry), Scleral Icterus Neck: Supple, Trachea Midline. No: Lymphadenopathy Lungs: Clear to Auscultation, Normal Respiratory Effort Cardiovascular: Regular Rate, Regular Rhythm GI/Abdominal Exam: Normal Bowel Sounds, Soft, Non-Tender, No Distention, Other ( ileostomy left mid abdomen ) Extremities: No Pedal Edema. No: Increased Warmth Skin: Warm, Dry, Incision (midline incision healing well. ), Other (no erythema around ostomy ) Neuro Extensive - Mental Status: Alert, Oriented x3, Nl Response to Commands Neuro Extensive - Motor, Sensory, Reflexes: No: Dysarthria, Abnormal Motor Psychiatric: Alert, Normal Affect - Patient Data Lab Results Last 24 hrs: Laboratory Results - last 24 hr 08/24/19 08/24/19 08/24/19 Range/Units 12:02 12:02 12:02 WBC 16.3 H (4.5-11.0) K/uL RBC 4.71 (4.30-5.90) M/uL Hgb 13.9 (12.0-15.0) g/dL Hct 40.7 (40.0-54.0) % MCV 86 (80-98) fL MCH 30 (27-31) pg MCHC 34 (32-36) % Plt Count 554 H (150-400) K/uL Neut % (Auto) 88 H (36-66) % Lymph % (Auto) 7 L (24-44) % [place] % (Auto) 6 (2-6) % Eos % (Auto) 0 L (2-4) % Baso % (Auto) 0 (0-1) % Sodium 127 L (140-148) mmol/L Potassium 4.9 (3.6-5.2) mmol/L Chloride 95 L (100-108) mmol/L Carbon Dioxide 15 L (21-32) mmol/L Anion Gap 21.9 H (5.0-14.0) mmol/L BUN 93 H* D (7-18) mg/dL Creatinine 3.4 H D (0.8-1.3) mg/dL Est Cr Clr Drug Dosing TNP Estimated GFR (MDRD) 17 L (>60) Glucose 216 H (74-106) mg/dL Calcium 9.9 (8.5-10.1) mg/dL Magnesium 2.7 H (1.8-2.4) mg/dL Total Bilirubin 0.4 (0.2-1.0) mg/dL AST 31 (15-37) U/L ALT 97 H (12-78) U/L Alkaline Phosphatase 149 H D (46-116) U/L Total Protein 8.0 (6.4-8.2) g/dL Albumin 4.0 (3.4-5.0) g/dL Globulin 4.0 H (2.3-3.5) g/dL Albumin/Globulin Ratio 1.0 L (1.2-2.2) Urine Color Yellow (YELLOW) Urine Appearance Clear (CLEAR) Urine pH 5.5 (5.0-8.0) Ur Specific [place] 1.025 (1.008-1.030) Urine Protein Trace H (NEGATIVE) mg/dL Urine Glucose (UA) Negative (NEGATIVE) mg/dL Urine Ketones Negative (NEGATIVE) mg/dL Urine Occult Blood Trace-intact H (NEGATIVE) Urine Nitrite Negative (NEGATIVE) Urine Bilirubin Negative (NEGATIVE) Urine Urobilinogen 0.2 (0.2-1.0) EU/dL Ur Leukocyte Esterase Negative (NEGATIVE) Urine RBC 0-5 (0-5) Urine WBC Not seen (0-5) Ur Epithelial Cells Not seen Amorphous Sediment Moderate Urine Bacteria Rare Urine Mucus Rare Urine Other See note Result Diagrams: 08/24/19 12:02 08/24/19 12:02 *Q Meaningful Use (ADM) - VTE Risk Assess *Q Each Risk Factor Represents 1 Point: Abnormal Pulmonary Function (COPD) Total Score 1 Point Risk Factors: 1 Each Risk Factor Represents 2 Points: Malignancy (present or previous) Total Score 2 Point Risk Factors: 2 Each Risk Factor Represents 3 Points: Age 75 Years or Greater Total Score 3 Point Risk Factors: 3 Each Risk Factor Represents 5 Points: None Total Score 5 Point Risk Factors: 0 Venous Thromboembolism Risk Factor Score *Q: 6 - Problem List (1) Acute kidney injury SNOMED Code(s): 62820921, 50195274 ICD Code: N17.9 - ACUTE KIDNEY FAILURE, UNSPECIFIED Status: Acute Current Visit: Yes (2) Rectal cancer SNOMED Code(s): 779878442 ICD Code: C20 - MALIGNANT NEOPLASM OF RECTUM Status: Chronic Current Visit: No (3) COPD (chronic obstructive pulmonary disease) SNOMED Code(s): 24094945 ICD Code: J44.9 - CHRONIC OBSTRUCTIVE PULMONARY DISEASE, UNSPECIFIED Status : Chronic Current Visit: No Qualifiers: COPD type: unspecified COPD Qualified Code(s): J44.9 - Chronic obstructive pulmonary disease, unspecified Problem List Initiated/Reviewed/Updated: Yes Orders Last 24hrs: Active Orders 24 hr Category Date Time Status Patient Status Manage Transfer [TRANSFER] Routine ADT 08/24/19 15:03 Ordered Resuscitation Status Routine Resus Stat 08/24/19 15:05 Ordered Assessment/Plan Comment:: ASSESSMENT AND PLAN - Acute kidney injury - I suspect there is at least a mild component of dehydration but likely a larger component related to his Bactrim use and interstitial nephritis. Vital signs are stable at this point. He continues to make urine and there is no indication for dialysis. I would anticipate that his condition will improve with hydration and stopping the offending agent. -discontinue Bactrim -Continue gentle fluids overnight -Repeat labs in the morning Rectal cancer - status post resection and ileostomy formation just over 2 weeks ago. There was concern for possible infection last week with a small amount of fluid noted in the lower abdomen on a CT scan. He was started on antibiotics about 5 days ago. no combined abdominal pain and exam is benign. -Hold antibiotics -CT scan in the morning COPD - mild at this time. Stable. Maintenance issues - - DVT prophylaxis - mechanical - GI prophylaxis - not indicated - Nutrition - regular - Perez catheter - not indicated CODE STATUS - full Admission justification - This patient will be admitted for inpatient services and is medically appropriate meeting medical necessity for inpatient admission as outlined in my documentation. I reasonably expect the patient will require inpatient services that span a period time over 2 midnights. I reasonably expect this patient to be discharged or transferred within 96 hours [facility]. Disposition - I would anticipate discharge home after the hospital stay Primary care physician - Aime Anthony M.D. - Mortality Measure Prognosis:: Good
[2019-08-24] MEDS ORDERED: Albuterol 0.083% 2.5 MG/3 ML Neb Soln NEB PRN (15:47)
[2019-08-24] MEDS ORDERED: Acetaminophen 325 MG Tab PO PRN (15:47)
[2019-08-24] MEDS ORDERED: Ondansetron 4 MG Tab.DIS PO PRN (15:47)
[2019-08-24] MEDS ORDERED: Ondansetron 4 MG/2 ML SDV IV PRN (15:47)
[2019-08-24] MEDS: Sodium Chloride 0.9% 1,000 ML IV SCH (16:22)
[2019-08-24] MEDS: Melatonin 3 MG Tab PO PRN (23:28)
[2019-08-25] MEDS: Sodium Chloride 0.9% 1,000 ML IV SCH ×3 (02:00→21:41)
--- NOTE | 2019-08-25 08:31 | CRLCT ---
INDICATION: Fluid collection follow-up, possible abscess. COMPARISON: 08/17/2019. TECHNIQUE: CT of the abdomen and pelvis without IV contrast. FINDINGS: The imaged lung bases are unremarkable. Liver, gallbladder, spleen, pancreas and adrenal glands are unremarkable. Stable bilateral renal hypoattenuating lesions which are incompletely characterized. Right mesenteric calcification is stable. Mild atherosclerosis of the abdominal aorta which is non aneurysmal. Colonic anastomosis is again noted. Presacral edema/fluid is unchanged. Right-sided ostomy is again noted. Prostate is enlarged, unchanged. Diffuse mild bladder wall thickening which can be seen with chronic outlet obstruction, similar to prior. No free air is seen. No evidence of bowel obstruction. No lymphadenopathy. Degenerative changes are again noted in the spine. Mild stranding about the midline incision, but no drainable fluid collection. IMPRESSION: 1. Changes status post low anterior resection, similar to prior exam, with mild presacral edema/fluid, similar to prior. No loculated fluid collection to suggest abscess. 2. Persistent mild stranding about the midline abdominal incision, but no drainable fluid collection. Please note that all CT scans at this facility use dose modulation, iterative reconstruction, and/or weight-based dosing when appropriate to reduce radiation dose to as low as reasonably achievable. Dictated by Fidel Wolf MD @ Aug 25 2019 8:20AM Signed by Dr. Fidel Wolf @ Aug 25 2019 8:29AM
[2019-08-25] MEDS: Mirabegron 25 MG Tab Extended Release PO SCH (08:59)
[2019-08-25] MEDS: Dutasteride 0.5 MG Cap PO SCH (08:59)
[2019-08-25] MEDS: Venlafaxine 75 MG Cap.ER PO SCH (08:59)
[2019-08-25] MEDS: amLODIPine 5 MG Tab PO SCH (09:00)
[2019-08-25] MEDS: Metoprolol Succinate 25 MG Tab.ER PO SCH (09:00)
[2019-08-25] MEDS ORDERED: TIMOLOL MALEATE EYEBOTH SCH (09:00)
[2019-08-25] MEDS ORDERED: Dorzolamide 2% Ophth Soln 10 ML Bottle EYERT SCH (09:00)
[2019-08-25] MEDS ORDERED: Non-Formulary Medication 1 Each (Mirabegron [Myrbetriq] 50 MG) PO SCH (09:00)
[2019-08-25] MEDS ORDERED: Potassium Chloride 20 MEQ Tab.ER PO ONE (09:00)
[2019-08-25] MEDS ORDERED: [UNRECOGNIZED DRUG - OTHER] EYEBOTH SCH (09:00)
[2019-08-25] MEDS: Timolol Maleate 0.5% Ophth Soln 5 ML Bottle EYEBOTH SCH (09:05)
[2019-08-25] MEDS: Dorzolamide 2% Ophth Soln 10 ML Bottle EYERT SCH (09:06)
--- NOTE | 2019-08-25 10:17 | PCM.PN ---
- General Info Date of Service: 08/25/19 Subjective Update: There were no acute events overnight. Patient is feeling better today. Strength is a little better. No abdominal pain. No fevers. CT scan of the abdomen and pelvis was obtained this morning and showed a persistent small fluid collection in the presacral area but no evidence for abscess. Possibly still some mild inflammation around the midline abdominal incision but no evidence for drainable fluid collection. Creatinine is better but not back to baseline. Potassium is borderline low. Functional Status: Reports: Pain Controlled, Tolerating Diet - Review of Systems General: Reports: Weakness. Denies: Fever - Patient Data Vitals - Most Recent: Last Vital Signs Temp 35.7 C 08/25/19 07:37 Pulse 79 08/25/19 09:00 Resp 16 08/25/19 07:37 BP 161/81 H 08/25/19 09:00 Pulse Ox 96 08/25/19 07:37 Weight - Most Recent: 73.482 kg I&O - Last 24 Hours: Intake & Output 08/24/19 08/25/19 08/25/19 22:59 06:59 14:59 Intake Total 1725 Output Total 1000 775 170 Balance -1000 950 -170 Lab Results Last 24 Hours: Laboratory Results - last 24 hr 08/24/19 08/24/19 08/24/19 Range/Units 12:02 12:02 12:02 WBC 16.3 H (4.5-11.0) K/uL RBC 4.71 (4.30-5.90) M/uL Hgb 13.9 (12.0-15.0) g/dL Hct 40.7 (40.0-54.0) % MCV 86 (80-98) fL MCH 30 (27-31) pg MCHC 34 (32-36) % Plt Count 554 H (150-400) K/uL Neut % (Auto) 88 H (36-66) % Lymph % (Auto) 7 L (24-44) % [place] % (Auto) 6 (2-6) % Eos % (Auto) 0 L (2-4) % Baso % (Auto) 0 (0-1) % Sodium 127 L (140-148) mmol/L Potassium 4.9 (3.6-5.2) mmol/L Chloride 95 L (100-108) mmol/L Carbon Dioxide 15 L (21-32) mmol/L Anion Gap 21.9 H (5.0-14.0) mmol/L BUN 93 H* D (7-18) mg/dL Creatinine 3.4 H D (0.8-1.3) mg/dL Est Cr Clr Drug Dosing TNP Estimated GFR (MDRD) 17 L (>60) Glucose 216 H (74-106) mg/dL Calcium 9.9 (8.5-10.1) mg/dL Magnesium 2.7 H (1.8-2.4) mg/dL Total Bilirubin 0.4 (0.2-1.0) mg/dL AST 31 (15-37) U/L ALT 97 H (12-78) U/L Alkaline Phosphatase 149 H D (46-116) U/L Total Protein 8.0 (6.4-8.2) g/dL Albumin 4.0 (3.4-5.0) g/dL Globulin 4.0 H (2.3-3.5) g/dL Albumin/Globulin Ratio 1.0 L (1.2-2.2) Urine Color Yellow (YELLOW) Urine Appearance Clear (CLEAR) Urine pH 5.5 (5.0-8.0) Ur Specific [place] 1.025 (1.008-1.030) Urine Protein Trace H (NEGATIVE) mg/dL Urine Glucose (UA) Negative (NEGATIVE) mg/dL Urine Ketones Negative (NEGATIVE) mg/dL Urine Occult Blood Trace-intact H (NEGATIVE) Urine Nitrite Negative (NEGATIVE) Urine Bilirubin Negative (NEGATIVE) Urine Urobilinogen 0.2 (0.2-1.0) EU/dL Ur Leukocyte Esterase Negative (NEGATIVE) Urine RBC 0-5 (0-5) Urine WBC Not seen (0-5) Ur Epithelial Cells Not seen Amorphous Sediment Moderate Urine Bacteria Rare Urine Mucus Rare Urine Other See note 08/25/19 08/25/19 Range/Units 05:44 05:44 WBC 9.6 (4.5-11.0) K/uL RBC 3.94 L (4.30-5.90) M/uL Hgb 11.6 L D (12.0-15.0) g/dL Hct 34.8 L (40.0-54.0) % MCV 88 (80-98) fL MCH 29 (27-31) pg MCHC 33 (32-36) % Plt Count 311 (150-400) K/uL Neut % (Auto) (36-66) % Lymph % (Auto) (24-44) % [place] % (Auto) (2-6) % Eos % (Auto) (2-4) % Baso % (Auto) (0-1) % Sodium 133 L (140-148) mmol/L Potassium 3.6 (3.6-5.2) mmol/L Chloride 102 (100-108) mmol/L Carbon Dioxide 20 L (21-32) mmol/L Anion Gap 14.6 H (5.0-14.0) mmol/L BUN 62 H (7-18) mg/dL Creatinine 1.9 H (0.8-1.3) mg/dL Est Cr Clr Drug Dosing 31.15 Estimated GFR (MDRD) 34 L (>60) Glucose 83 (74-106) mg/dL Calcium 8.9 (8.5-10.1) mg/dL Magnesium (1.8-2.4) mg/dL Total Bilirubin (0.2-1.0) mg/dL AST (15-37) U/L ALT (12-78) U/L Alkaline Phosphatase (46-116) U/L Total Protein (6.4-8.2) g/dL Albumin (3.4-5.0) g/dL Globulin (2.3-3.5) g/dL Albumin/Globulin Ratio (1.2-2.2) Urine Color (YELLOW) Urine Appearance (CLEAR) Urine pH (5.0-8.0) Ur Specific [place] (1.008-1.030) Urine Protein (NEGATIVE) mg/dL Urine Glucose (UA) (NEGATIVE) mg/dL Urine Ketones (NEGATIVE) mg/dL Urine Occult Blood (NEGATIVE) Urine Nitrite (NEGATIVE) Urine Bilirubin (NEGATIVE) Urine Urobilinogen (0.2-1.0) EU/dL Ur Leukocyte Esterase (NEGATIVE) Urine RBC (0-5) Urine WBC (0-5) Ur Epithelial Cells Amorphous Sediment Urine Bacteria Urine Mucus Urine Other Med Orders - Current: Current Medications Acetaminophen (Tylenol) 650 mg PO Q4H PRN PRN Reason: Pain (Mild 1-3)/fever Albuterol (Proventil Neb Soln) 2.5 mg NEB Q4H PRN PRN Reason: Shortness Of Breath/wheezing Amlodipine Besylate (Norvasc) 5 mg PO DAILY [facility] Last Admin: 08/25/19 09:00 Dose: 5 mg Dorzolamide HCl (Trusopt 2% Ophth Soln) 0 ml EYERT DAILY [facility] Last Admin: 08/25/19 09:06 Dose: 1 drop Dutasteride (Avodart) 0.5 mg PO DAILY [facility] Last Admin: 08/25/19 08:59 Dose: 0.5 mg Sodium Chloride (Normal Saline) 1,000 mls @ 100 mls/hr IV ASDIRECTED [facility] Last Admin: 08/25/19 02:00 Dose: 100 mls/hr Melatonin (Melatonin) 9 mg PO BEDTIME PRN PRN Reason: Sleep Last Admin: 08/24/19 23:28 Dose: 9 mg Metoprolol Succinate (Toprol Xl) 12.5 mg PO DAILY [facility] Last Admin: 08/25/19 09:00 Dose: 12.5 mg Mirabegron (Myrbetriq) 50 mg PO DAILY [facility] Last Admin: 08/25/19 08:59 Dose: 50 mg Ondansetron HCl (Zofran Odt) 4 mg PO Q6H PRN PRN Reason: Nausea able to take PO Ondansetron HCl (Zofran) 4 mg IV Q6H PRN PRN Reason: Nausea/Vomiting Timolol Maleate (Timoptic 0.5% Ophth Soln) 0 ml EYEBOTH DAILY [facility] Last Admin: 08/25/19 09:05 Dose: 1 drop Venlafaxine HCl (Effexor Xr) 225 mg PO DAILY [facility] Last Admin: 08/25/19 08:59 Dose: 225 mg Discontinued Medications Dorzolamide HCl (Trusopt 2% Ophth Soln) 1 ml EYERT DAILY [facility] Potassium Chloride (Klor-Con M20) 40 meq PO ONETIME ONE Stop: 08/25/19 09:01 - Exam Quality Assessment: No: Supplemental Oxygen General: Alert, Oriented, Cooperative, No Acute Distress Lungs: Normal Respiratory Effort GI/Abdominal Exam: Soft, No Distention Extremities: No Pedal Edema Psy/Mental Status: Alert, Normal Affect - Problem List & Annotations (1) Acute kidney injury SNOMED Code(s): 51114024, 59843419 Code(s): N17.9 - ACUTE KIDNEY FAILURE, UNSPECIFIED Status: Acute Current Visit: Yes (2) Rectal cancer SNOMED Code(s): 221999860 Code(s): C20 - MALIGNANT NEOPLASM OF RECTUM Status: Chronic Current Visit : No (3) COPD (chronic obstructive pulmonary disease) SNOMED Code(s): 60377469 Code(s): J44.9 - CHRONIC OBSTRUCTIVE PULMONARY DISEASE, UNSPECIFIED Status : Chronic Current Visit: No Qualifiers: COPD type: unspecified COPD Qualified Code(s): J44.9 - Chronic obstructive pulmonary disease, unspecified - Problem List Review Problem List Initiated/Reviewed/Updated: Yes - My Orders Last 24 Hours: My Active Orders 08/24/19 15:05 Resuscitation Status Routine 08/24/19 15:47 Patient Status [ADT] Routine Antiembolic Devices [RC] .Routine Intake and Output [RC] QSHIFT Notify Provider Vital Signs [RC] ASDIRECTED Oxygen Therapy [RC] PRN RT Aerosol Therapy [RC] ASDIRECTED Up ad Cass [RC] ASDIRECTED VTE/DVT Education [RC] Per Unit Routine Vital Signs [RC] Q4H Acetaminophen [Tylenol] 650 mg PO Q4H PRN Albuterol [Proventil Neb Soln] 2.5 mg NEB Q4H PRN Melatonin 9 mg PO BEDTIME PRN Ondansetron [Zofran ODT] 4 mg PO Q6H PRN Ondansetron [Zofran] 4 mg IV Q6H PRN Sodium Chloride 0.9% [Normal Saline] 1,000 ml IV ASDIRECTED Sequential Compression Device [OM.PC] Routine 08/24/19 Dinner Regular Diet [DIET] 08/25/19 09:00 Dorzolamide [Trusopt 2% Ophth Soln] 0 ml EYERT DAILY Dutasteride [Avodart] 0.5 mg PO DAILY Metoprolol Succinate [Toprol XL] 12.5 mg PO DAILY Mirabegron [Myrbetriq] 50 mg PO DAILY Timolol Maleate [Timoptic 0.5% Ophth Soln] 0 ml EYEBOTH DAILY Venlafaxine [Effexor XR] 225 mg PO DAILY amLODIPine [Norvasc] 5 mg PO DAILY 08/26/19 05:00 BASIC METABOLIC PANEL,BMP [CHEM] Timed CBC W/O DIFF,HEMOGRAM [HEME] Timed (1) - Plan Plan:: ASSESSMENT AND PLAN - Acute kidney injury - I suspect there is at least a mild component of dehydration but likely a larger component related to his Bactrim use and interstitial nephritis. Creatinine level has improved significantly but is not back to baseline. Vital signs remained stable. Urine output has been good. -discontinue Bactrim -Continue gentle fluids at least through the day and probably overnight -Repeat labs in the morning Rectal cancer - status post resection and ileostomy formation just over [address] scan today showed stable small quantity of fluid in the presacral area. No strong evidence for infection or need for antibiotics at this time. -Hold off on new antibiotics COPD - mild at this time. Stable. Maintenance issues - - DVT prophylaxis - mechanical - GI prophylaxis - not indicated - Nutrition - regular Disposition - I would anticipate discharge home after the hospital stay, likely tomorrow if stable overnight Primary care physician - Aime Anthony M.D.
[2019-08-25] MEDS: Melatonin 3 MG Tab PO PRN (20:38)
[2019-08-26] MEDS: Sodium Chloride 0.9% 1,000 ML IV SCH (07:22)
[2019-08-26] MEDS ORDERED: Potassium Chloride 20 MEQ Tab.ER PO ONE (09:00)
[2019-08-26] MEDS: Dutasteride 0.5 MG Cap PO SCH (09:06)
[2019-08-26] MEDS: Venlafaxine 75 MG Cap.ER PO SCH (09:07)
[2019-08-26] MEDS: Mirabegron 25 MG Tab Extended Release PO SCH (09:10)
[2019-08-26] MEDS: amLODIPine 5 MG Tab PO SCH (09:11)
[2019-08-26] MEDS: Timolol Maleate 0.5% Ophth Soln 5 ML Bottle EYEBOTH SCH (09:16)
[2019-08-26] MEDS: Dorzolamide 2% Ophth Soln 10 ML Bottle EYERT SCH (09:18)
[2019-08-26] MEDS: Metoprolol Succinate 25 MG Tab.ER PO SCH (09:24)
--- NOTE | 2019-08-26 11:37 | PCM.DCSUM1 ---
Discharge Summary - Hospital Course Brief History: 84-year-old male with a history of chronic back pain with spinal stenosis and rectal cancer with recent surgical resection and ileostomy formation who presented with acute kidney injury from the infusion Center. He was admitted for hydration and management of acute kidney injury. Diagnosis: Stroke: No - Discharge Data Discharge Date: 08/26/19 Discharge Disposition: Home, W Home Health Agency 06 Condition: Good - Referral to Home Health Date of Face to Face Encounter: 08/26/19 Reason for Homebound Status: colon cancer Primary Care Physician: PCP None Skilled Need: correction - Discharge Diagnosis/Problem(s) (1) Acute kidney injury SNOMED Code(s): 81282044, [id number] ICD Code: N17.9 - ACUTE KIDNEY FAILURE, UNSPECIFIED Status: Acute Current Visit: Yes (2) Rectal cancer SNOMED Code(s): 146873937 ICD Code: C20 - MALIGNANT NEOPLASM OF RECTUM Status: Chronic Current Visit: No (3) COPD (chronic obstructive pulmonary disease) SNOMED Code(s): 08695553 ICD Code: J44.9 - CHRONIC OBSTRUCTIVE PULMONARY DISEASE, UNSPECIFIED Status : Chronic Current Visit: No Qualifiers: COPD type: unspecified COPD Qualified Code(s): J44.9 - Chronic obstructive pulmonary disease, unspecified - Patient Summary/Data Hospital Course: Abdi was sent by the infusion Center for hydration. Laboratory studies revealed a creatinine of 3.4 as well as mild hyponatremia. His baseline creatinine was less than 1. He had been on antibiotics recently to treat a possible wound infection. He did not have any abdominal pain at the time of presentation. He was admitted to the hospital and started on IV fluids. We did not elect to continue antibiotics because he did not have pain or fever. His white blood cell count was moderately elevated at about 16,000. Overnight following admission we saw fairly impressive improvement in his kidney function the creatinine dropped down to about 1.9. Sodium level improved. White blood cell count normalized. He did not have any fevers or abdominal pain. The morning after admission we did get a CT scan of the abdomen pelvis which showed a stable very small collection of fluid in the presacral area as well as some slight stranding around the midline abdominal incision but no definite evidence for infection or abscess. We elected to avoid additional antibiotics. He was further hydrated overnight the second night. By the morning of discharge his creatinine level has improved down to 1. Electrolytes are normal other than mild hypokalemia. He is feeling well. He has had some difficulties recently with increased ileostomy output but these have been very manageable during the hospital stay. He is feeling fairly well and more energetic. He is interested in going home at this time. We have placed a referral to continue his home health care after hospital discharge. He will be following up next week. - Patient Instructions Diet: Regular Diet as Tolerated Activity: As Tolerated Showering/Bathing: May Shower Notify Provider of: Fever, Increased Pain, Nausea and/or Vomiting Other/Special Instructions: 1. Drink plenty of water each day (at least 64 ounces). 2. Increased your activity as tolerated. 3. Resume previous home health care orders. 4. Stop taking Bactrim - Discharge Plan *PRESCRIPTION DRUG MONITORING PROGRAM REVIEWED*: Not Applicable *COPY OF PRESCRIPTION DRUG MONITORING REPORT IN PATIENT HILARY: Not Applicable Home Medications: Home Meds Dutasteride [Avodart] 0.5 mg PO DAILY 08/08/16 [History] Timolol Maleate/PF [Timoptic 0.5% Ocudose Drop] 1 drop EYEBOTH DAILY 08/08/16 [ History] Venlafaxine [Effexor XR] 225 mg PO DAILY 08/08/16 [History] Metoprolol Succinate [Toprol XL] 12.5 mg PO DAILY 03/29/19 [History] Mirabegron [Myrbetriq] 50 mg PO DAILY 03/29/19 [History] amLODIPine [Norvasc] 5 mg PO DAILY 03/29/19 [History] Prochlorperazine [Compazine] 10 mg PO Q6HR PRN 08/02/19 [History] Dorzolamide [Trusopt 2% Ophth Soln] 1 drop EYERT DAILY 08/04/19 [History] Acetaminophen [Tylenol Extra Strength] 500 mg PO BID 08/24/19 [History] Oxygen Therapy Mode: Room Air Patient Handouts: Rehydration, Adult Referrals: Aime Sesay MD [Physician] - 09/02/19 11:20 am (1 week - f/u hospital stay for dehydration, RODRIGUEZ Please arrive 15 minutes early to register for your appointment with Dr. Sesay. ) - Discharge Summary/Plan Comment DC Time >30 min.: No - Patient Data Vitals - Most Recent: Last Vital Signs Temp 36.7 C 08/26/19 11:00 Pulse 100 08/26/19 11:00 Resp 20 08/26/19 11:00 BP 133/69 08/26/19 11:00 Pulse Ox 100 08/26/19 11:00 Weight - Most Recent: 73.482 kg I&O - Last 24 hours: Intake & Output 08/25/19 08/26/19 08/26/19 22:59 06:59 14:59 Intake Total 1810 1125 300 Output Total 575 400 450 Balance 1235 725 -150 Lab Results - Last 24 hrs: Laboratory Results - last 24 hr 08/26/19 08/26/19 Range/Units 04:38 04:38 WBC 8.0 (4.5-11.0) K/uL RBC 3.86 L (4.30-5.90) M/uL Hgb 11.4 L (12.0-15.0) g/dL Hct 34.4 L (40.0-54.0) % MCV 89 (80-98) fL MCH 30 (27-31) pg MCHC 33 (32-36) % Plt Count 277 (150-400) K/uL Sodium 135 L (140-148) mmol/L Potassium 3.4 L (3.6-5.2) mmol/L Chloride 105 (100-108) mmol/L Carbon Dioxide 20 L (21-32) mmol/L Anion Gap 13.4 (5.0-14.0) mmol/L BUN 35 H (7-18) mg/dL Creatinine 1.0 (0.8-1.3) mg/dL Est Cr Clr Drug Dosing 59.19 mL/min Estimated GFR (MDRD) > 60 (>60) Glucose 85 (74-106) mg/dL Calcium 8.7 (8.5-10.1) mg/dL Med Orders - Current: Current Medications Acetaminophen (Tylenol) 650 mg PO Q4H PRN PRN Reason: Pain (Mild 1-3)/fever Albuterol (Proventil Neb Soln) 2.5 mg NEB Q4H PRN PRN Reason: Shortness Of Breath/wheezing Amlodipine Besylate (Norvasc) 5 mg PO DAILY [facility] Last Admin: 08/26/19 09:11 Dose: 5 mg Dorzolamide HCl (Trusopt 2% Ophth Soln) 0 ml EYERT DAILY [facility] Last Admin: 08/26/19 09:18 Dose: 1 drop Dutasteride (Avodart) 0.5 mg PO DAILY [facility] Last Admin: 08/26/19 09:06 Dose: 0.5 mg Sodium Chloride (Normal Saline) 1,000 mls @ 100 mls/hr IV ASDIRECTED [facility] Last Admin: 08/26/19 07:22 Dose: 100 mls/hr Melatonin (Melatonin) 9 mg PO BEDTIME PRN PRN Reason: Sleep Last Admin: 08/25/19 20:38 Dose: 9 mg Metoprolol Succinate (Toprol Xl) 12.5 mg PO DAILY [facility] Last Admin: 08/26/19 09:24 Dose: 12.5 mg Mirabegron (Myrbetriq) 50 mg PO DAILY [facility] Last Admin: 08/26/19 09:10 Dose: 50 mg Ondansetron HCl (Zofran Odt) 4 mg PO Q6H PRN PRN Reason: Nausea able to take PO Ondansetron HCl (Zofran) 4 mg IV Q6H PRN PRN Reason: Nausea/Vomiting Timolol Maleate (Timoptic 0.5% Ophth Soln) 0 ml EYEBOTH DAILY [facility] Last Admin: 08/26/19 09:16 Dose: 1 drop Venlafaxine HCl (Effexor Xr) 225 mg PO DAILY [facility] Last Admin: 08/26/19 09:07 Dose: 225 mg Discontinued Medications Dorzolamide HCl (Trusopt 2% Ophth Soln) 1 ml EYERT DAILY [facility] Potassium Chloride (Klor-Con M20) 40 meq PO ONETIME ONE Stop: 08/25/19 09:01 Last Admin: 08/25/19 10:36 Dose: 40 meq Potassium Chloride (Klor-Con M20) 40 meq PO ONETIME ONE Stop: 08/26/19 09:01 Last Admin: 08/26/19 09:09 Dose: 40 meq - Exam Quality Assessment: Denies: Supplemental Oxygen General: Reports: Alert, Oriented, Cooperative, No Acute Distress Lungs: Reports: Normal Respiratory Effort GI/Abdominal Exam: Soft, No Distention Extremities: No Pedal Edema Psy/Mental Status: Reports: Alert, Normal Affect
[2019-08-26 15:15] VITALS: BP 131/62; PULSE 79
== END 2019-08-26 17:16 | disposition home health service (06) | DRG 683 ==
LOC: JP.MS 15:03
PROVIDERS: ADMIT Internal Medicine; ATTEND Physician Assistant
DX: N17.9 Acute kidney failure, unspecified (principal); C20 Malignant neoplasm of rectum; E87.1 Hypo-osmolality and hyponatremia; E86.0 Dehydration; J44.9 Chronic obstructive pulmonary disease, unspecified; E87.6 Hypokalemia; H54.7 Unspecified visual loss; I10 Essential (primary) hypertension; M19.90 Unspecified osteoarthritis, unspecified site; G89.29 Other chronic pain; M48.061 Spinal stenosis, lumbar region without neurogenic claudication; M54.9 Dorsalgia, unspecified; F31.9 Bipolar disorder, unspecified; Z96.659 Presence of unspecified artificial knee joint; Z85.038 Personal history of other malignant neoplasm of large intestine; Z98.49 Cataract extraction status, unspecified eye; Z90.89 Acquired absence of other organs; Z79.899 Other long term (current) drug therapy; Z90.49 Acquired absence of other specified parts of digestive tract
CPT/HCPCS: 36415; 74176; 80048; 80053; 81001; 83735; 85025; 85027; A9270-GY; J7030

== ENCOUNTER 2019-09-09 11:44 | Inpatient (IN) | payer MEDICARE, OTHER ==
--- NOTE | 2019-09-09 12:34 | PCM.HP.2 ---
H&P History of Present Illness - General Date of Service: 09/09/19 Source of Information: Patient History Limitations: Reports: No Limitations - History of Present Illness Initial Comments - Free Text/Narative: Abdi was admitted to swing bed status today after a short hospital stay for management of acute kidney injury, dehydration and severe protein calorie malnutrition secondary to a high output ileostomy. He also had a mildly elevated troponin which was likely demand ischemia and poor renal clearance with his severe dehydration and kidney injury. He did improve fairly quickly throughout the hospital stay. He remains weak and requires TPN to help maintain his nutrition so he was transitioned to a swing bed status. He does not have any abdominal pain at this time. Ileostomy output has been less than 1 L in the last 24 hours. He has not had any fevers. He remains weak and is a little wobbly on his feet but strength seems to be slowly improving. Appetite improving. - Related Data Allergies/Adverse Reactions: Allergies Allergy/AdvReac Type Severity Reaction Status Date / Time No Known Allergies Allergy Verified 09/05/19 10:14 Home Medications: Home Meds Dutasteride [Avodart] 0.5 mg PO DAILY 08/08/16 [History] Timolol Maleate/PF [Timoptic 0.5% Ocudose Drop] 1 drop EYEBOTH DAILY 08/08/16 [ History] Venlafaxine [Effexor XR] 225 mg PO DAILY 08/08/16 [History] Metoprolol Succinate [Toprol XL] 12.5 mg PO DAILY 03/29/19 [History] Mirabegron [Myrbetriq] 50 mg PO DAILY 03/29/19 [History] amLODIPine [Norvasc] 5 mg PO DAILY 03/29/19 [History] Prochlorperazine [Compazine] 10 mg PO Q6HR PRN 08/02/19 [History] Dorzolamide [Trusopt 2% Ophth Soln] 1 drop EYERT DAILY 08/04/19 [History] Acetaminophen [Tylenol Extra Strength] 500 mg PO BID 08/24/19 [History] Past Medical History HEENT History: Reports: Cataract, Impaired Vision Cardiovascular History: Reports: Hypertension Respiratory History: Reports: COPD Gastrointestinal History: Reports: Other (See Below) Other Gastrointestinal History: history of rectal fissure Genitourinary History: Reports: Prostate Disorder Other Genitourinary History: enlarged prostate Musculoskeletal History: Reports: Arthritis, Back Pain, Chronic, Fracture Neurological History: Reports: None Psychiatric History: Reports: Bipolar, Depression Oncologic (Cancer) History: Reports: Colon, Other (See Below) Other Oncologic History: rectal - Infectious Disease History Infectious Disease History: Reports: Chicken Pox, Measles, Mumps - Past Surgical History HEENT Surgical History: Reports: Cataract Surgery, Detached Retina, Tonsillectomy Cardiovascular Surgical History: Reports: None Respiratory Surgical History: Reports: None GI Surgical History: Reports: Colonoscopy Neurological Surgical History: Reports: Laminectomy Musculoskeletal Surgical History: Reports: None, Knee Replacement Social & Family History - Family History Family Medical History: Noncontributory - Caffeine Use Caffeine Use: Reports: Coffee - Alcohol Use Alcohol Use History: No H&P Review of Systems - Review of Systems: Review Of Systems: See Below Free Text/Narrative: A complete 12 point review of systems was obtained. Pertinent positives and negatives are noted in the history of present illness. All other systems were reviewed and were negative except as noted. Exam - Exam Exam: See Below - Exam Quality Assessment: No: Supplemental Oxygen General: Alert, Oriented, Cooperative. No: Mild Distress HEENT: Conjunctiva Clear, Mucosa Moist & Burnt Store [place]ck: Supple, Trachea Midline Lungs: Normal Respiratory Effort. No: Wheezing Cardiovascular: Regular Rate, Regular Rhythm GI/Abdominal Exam: Soft, No Distention, Other (Colostomy with soft brown stool right lower abdomen) Extremities: No Pedal Edema. No: Increased Warmth Skin: Warm, Dry Neuro Extensive - Mental Status: Alert, Nl Response to Commands Neuro Extensive - Motor, Sensory, Reflexes: No: Dysarthria, Tremor Psychiatric: Alert, Normal Affect *Q Meaningful Use (ADM) - VTE Risk Assess *Q Each Risk Factor Represents 1 Point: None Total Score 1 Point Risk Factors: 0 Each Risk Factor Represents 2 Points: Malignancy (present or previous) Total Score 2 Point Risk Factors: 2 Each Risk Factor Represents 3 Points: Age 75 Years or Greater Total Score 3 Point Risk Factors: 3 Each Risk Factor Represents 5 Points: None Total Score 5 Point Risk Factors: 0 Venous Thromboembolism Risk Factor Score *Q: 5 - Problem List (1) Severe protein-calorie malnutrition SNOMED Code(s): 341892640, 760712742, 258477613 ICD Code: E43 - UNSPECIFIED SEVERE PROTEIN-CALORIE MALNUTRITION Status: Acute Current Visit: No (2) High output ileostomy SNOMED Code(s): 721015523 ICD Code: R19.8 - OTH SYMPTOMS AND SIGNS INVOLVING THE DGSTV SYS AND ABDOMEN ; Z93.2 - ILEOSTOMY STATUS Status: Acute Current Visit: No (3) Dehydration SNOMED Code(s): 87530729 ICD Code: E86.0 - DEHYDRATION Status: Acute Current Visit: No (4) Weakness SNOMED Code(s): 38515309 ICD Code: R53.1 - WEAKNESS Status: Acute Current Visit: No Problem List Initiated/Reviewed/Updated: Yes Assessment/Plan Comment:: ASSESSMENT AND PLAN - Severe protein calorie malnutrition - he has lost nearly 60 pounds in the last couple months despite dietary supplements and eating as much as possible. Oral intake has not been sufficient so he has been started on TPN. Absorption likely hampered by his high output ileostomy. -Nocturnal TPN for 90 days and reassess Rectal cancer status post surgical intervention and ileostomy - ileostomy output has improved with initiation of loperamide and psyllium. TPN initiated. -Continue nocturnal TPN -Scheduled loperamide -Scheduled fiber supplements Wound infection - culture positive for MRSA. No significant pain but still some drainage. -Doxycycline twice daily for a total of 1 week end (09/13) Generalized weakness - secondary to poor nutrition and dehydration. -Physical therapy Maintenance issues - - DVT prophylaxis - mechanical - GI prophylaxis - PPI - Nutrition - regular diet CODE STATUS - full code Admission status - patient will be admitted to swing bed status for administration of nocturnal TPN as well as ongoing physical therapy to improve strength and endurance. Disposition - I would anticipate discharge home with home care and nocturnal TPN after the swing bed hospital stay Channing Anthony M.D. - Mortality Measure Prognosis:: Good
[2019-09-09] MEDS ORDERED: Sodium Chloride 0.9% 10 ML Syringe FLUSH PRN (12:44)
[2019-09-09] MEDS ORDERED: Ondansetron 4 MG Tab.DIS PO PRN (12:44)
[2019-09-09] MEDS ORDERED: Acetaminophen 325 MG Tab PO PRN (12:44)
[2019-09-09] MEDS: Fat Emulsion 100 ML IV SCH (15:16)
[2019-09-09] MEDS: Psyllium Husk Powder Sugar Free 5.85 GM Packet PO SCH (15:17)
[2019-09-09] MEDS: Magnesium Sulfate/Water 2 GM in Premix Bag 1 BAG IV SCH ×2 (15:17→21:46)
[2019-09-09] MEDS: Loperamide 2 MG Cap PO SCH (15:17)
[2019-09-09] MEDS: Pantoprazole 40 MG Delayed-Release Granules 1 Packet PO SCH (15:59)
[2019-09-09] MEDS ORDERED: 1: AA 5%/Calcium/D15W/Lytes 1,000 ML with MVI, Adult with Vitamin K 10 ML, Chromium/Copp IV SCH ×3 (18:00)
[2019-09-09] MEDS ORDERED: Central Total Parenteral Nutrition Bag SCH (18:00)
[2019-09-09] MEDS: 1: AA 5%/Calcium/D15W/Lytes 1,000 ML with MVI, Adult with Vitamin K 10 ML, Chromium/Copp IV SCH ×3 (18:33)
[2019-09-09] MEDS: Acetaminophen 500 MG Tab PO SCH (21:46)
[2019-09-09] MEDS: Doxycycline 100 MG Cap PO SCH (21:46)
[2019-09-09] MEDS: Melatonin 3 MG Tab PO PRN (22:08)
[2019-09-10] MEDS: diphenhydrAMINE 25 MG Cap PO PRN ×2 (00:02→20:47)
[2019-09-10] MEDS: Magnesium Sulfate/Water 2 GM in Premix Bag 1 BAG IV SCH (03:19)
[2019-09-10] MEDS: 1: AA 5%/Calcium/D15W/Lytes 1,000 ML with MVI, Adult with Vitamin K 10 ML, Chromium/Copp IV SCH ×6 (05:22→15:43)
[2019-09-10] MEDS: Mirabegron 25 MG Tab Extended Release PO SCH (08:21)
[2019-09-10] MEDS: Venlafaxine 75 MG Cap.ER PO SCH (08:21)
[2019-09-10] MEDS: Doxycycline 100 MG Cap PO SCH ×2 (08:21→20:47)
[2019-09-10] MEDS: Dutasteride 0.5 MG Cap PO SCH (08:22)
[2019-09-10] MEDS: Metoprolol Succinate 25 MG Tab.ER PO SCH (08:22)
[2019-09-10] MEDS: Acetaminophen 500 MG Tab PO SCH ×2 (08:22→20:47)
[2019-09-10] MEDS: Loperamide 2 MG Cap PO SCH ×3 (08:22→16:37)
[2019-09-10] MEDS: amLODIPine 5 MG Tab PO SCH (08:22)
[2019-09-10] MEDS: Timolol Maleate 0.5% Ophth Soln 5 ML Bottle EYEBOTH SCH (08:23)
[2019-09-10] MEDS: Dorzolamide 2% Ophth Soln 10 ML Bottle EYERT SCH (08:23)
[2019-09-10] MEDS: Psyllium Husk Powder Sugar Free 5.85 GM Packet PO SCH ×3 (08:23→16:36)
[2019-09-10] MEDS: Pantoprazole 40 MG Delayed-Release Granules 1 Packet PO SCH ×2 (08:55→16:37)
[2019-09-10] MEDS: Fat Emulsion 100 ML IV SCH (16:37)
[2019-09-10] MEDS: Melatonin 3 MG Tab PO PRN (20:47)
[2019-09-11] MEDS: 1: AA 5%/Calcium/D15W/Lytes 1,000 ML with MVI, Adult with Vitamin K 10 ML, Chromium/Copp IV SCH ×9 (02:34→23:31)
[2019-09-11] MEDS: Psyllium Husk Powder Sugar Free 5.85 GM Packet PO SCH ×3 (07:01→16:10)
[2019-09-11] MEDS: Pantoprazole 40 MG Delayed-Release Granules 1 Packet PO SCH ×2 (07:01→16:10)
[2019-09-11] MEDS: Loperamide 2 MG Cap PO SCH ×3 (07:01→16:09)
[2019-09-11] MEDS: Doxycycline 100 MG Cap PO SCH ×2 (08:27→20:10)
[2019-09-11] MEDS: Dutasteride 0.5 MG Cap PO SCH (08:27)
[2019-09-11] MEDS: Acetaminophen 500 MG Tab PO SCH ×2 (08:27→20:10)
[2019-09-11] MEDS: Venlafaxine 75 MG Cap.ER PO SCH (08:27)
[2019-09-11] MEDS: Mirabegron 25 MG Tab Extended Release PO SCH (08:28)
[2019-09-11] MEDS: amLODIPine 5 MG Tab PO SCH (08:29)
[2019-09-11] MEDS: Dorzolamide 2% Ophth Soln 10 ML Bottle EYERT SCH (08:29)
[2019-09-11] MEDS: Timolol Maleate 0.5% Ophth Soln 5 ML Bottle EYEBOTH SCH (08:29)
[2019-09-11] MEDS: Metoprolol Succinate 25 MG Tab.ER PO SCH (08:30)
[2019-09-11] MEDS: Fat Emulsion 100 ML IV SCH (16:09)
--- NOTE | 2019-09-11 19:50 | PN ---
DATE OF SERVICE: 09/10/2019 The patient has been clinically stable. Oral intake remains quite scant. We will continue the 24 hour TPN for the near term. We will try to figure out when he is going to be going home, and a day or two before that, we will switch him over to nighttime TPN regimen. Otherwise, encouraged increased oral intake and increase activity. We will recheck some labs in the morning. Sanchez David MD /[id number]
[2019-09-11] MEDS: diphenhydrAMINE 25 MG Cap PO PRN (20:10)
[2019-09-11] MEDS: Melatonin 3 MG Tab PO PRN (20:10)
[2019-09-12] MEDS ORDERED: Central Total Parenteral Nutrition Bag SCH (07:30)
[2019-09-12] MEDS: Loperamide 2 MG Cap PO SCH ×3 (07:46→16:39)
[2019-09-12] MEDS: Psyllium Husk Powder Sugar Free 5.85 GM Packet PO SCH ×3 (07:46→16:38)
[2019-09-12] MEDS: Pantoprazole 40 MG Delayed-Release Granules 1 Packet PO SCH ×2 (07:46→16:38)
--- NOTE | 2019-09-12 08:00 | PN ---
DATE OF SERVICE: 09/11/2019 The patient has been afebrile with stable vital signs. Oral intake was actually somewhat better over the last 24 hours, right around 1400 mL. Continue present TPN. The plan at this point is getting him discharged home, perhaps on . We will begin cycling nighttime TPN regimen beginning on Thursday night. Sanchez David MD /[id number]
--- NOTE | 2019-09-12 09:42 | PN ---
DATE OF SERVICE: 09/12/2019 SUBJECTIVE: Abdi is planning to be discharged evening. He will be going home with home TPN. He states he is feeling better and feels stronger. Oral intake 1325. Urine output 2175. Ostomy output is 1050. It has been recorded on his chart was that he consumed 100% of breakfast, nothing was recorded for lunch, and 100% for dinner. He has no other concerns or questions. OBJECTIVE: GENERAL: Abdi is a pleasant 84-year-old male. He is alert, orientated, lying in bed. VITAL SIGNS: TPR 97, 93, 18. Blood pressure 118/98. HEENT: Negative. NECK: Supple. HEART: Regular rate and rhythm. LUNGS: Clear. ABDOMEN: Negative. Ostomy in place. EXTREMITIES: Without peripheral edema. ASSESSMENT: 1. Severe protein-calorie malnutrition. 2. High output ileostomy. 3. Dehydration. 4. Weakness. 5. TPN therapy. PLAN: Continue same TPN rate until 0500 on 09/13/2019. At 0500, change the TPN rate to 40 mL, and at 0600, discontinue TPN. We will start 12-hour nighttime TPN that evening. Home health care will be involved. We will evaluate p.r.n. in a.. Liz Dai PA-C /[id number]
[2019-09-12] MEDS: Dorzolamide 2% Ophth Soln 10 ML Bottle EYERT SCH (10:09)
[2019-09-12] MEDS: Timolol Maleate 0.5% Ophth Soln 5 ML Bottle EYEBOTH SCH (10:09)
[2019-09-12] MEDS: Metoprolol Succinate 25 MG Tab.ER PO SCH (10:10)
[2019-09-12] MEDS: Mirabegron 25 MG Tab Extended Release PO SCH (10:11)
[2019-09-12] MEDS: Dutasteride 0.5 MG Cap PO SCH (10:11)
[2019-09-12] MEDS: Acetaminophen 500 MG Tab PO SCH ×2 (10:11→22:23)
[2019-09-12] MEDS: Venlafaxine 75 MG Cap.ER PO SCH (10:11)
[2019-09-12] MEDS: Doxycycline 100 MG Cap PO SCH ×2 (10:12→22:23)
[2019-09-12] MEDS: amLODIPine 5 MG Tab PO SCH (10:12)
[2019-09-12] MEDS: 1: AA 5%/Calcium/D15W/Lytes 1,000 ML with MVI, Adult with Vitamin K 10 ML, Chromium/Copp IV SCH ×3 (11:17)
--- NOTE | 2019-09-12 14:29 | PCM.PN ---
- General Info Date of Service: 09/12/19 Subjective Update: Mr. Carey is an 84-year-old gentleman currently on swing bed status. He unfortunately was diagnosed with rectal carcinoma earlier this year and is status post surgical resection, with colostomy. As well as chemotherapy and radiation therapy. He has had recent difficulty with high output from his ostomy and recurrent hospitalizations for hydration. He is currently treated with Imodium and his ostomy output has improved. Appetite seems to be slowly improving and he is receiving TPN for nutritional support. - Review of Systems General: Reports: Weakness. Denies: Fever, Chills Pulmonary: Reports: No Symptoms Cardiovascular: Reports: No Symptoms Gastrointestinal: Reports: Decreased Appetite, Diarrhea. Denies: Abdominal Pain , Constipation, Difficulty Swallowing, Nausea, Vomiting - Patient Data Vitals - Most Recent: Last Vital Signs Temp 97.1 F 09/12/19 10:31 Pulse 88 09/12/19 10:31 Resp 18 09/12/19 10:31 BP 153/73 H 09/12/19 10:31 Pulse Ox 100 09/12/19 10:31 Weight - Most Recent: 168 lb 0.017 oz I&O - Last 24 Hours: Intake & Output 09/11/19 09/12/19 09/12/19 22:59 06:59 14:59 Intake Total 901 1361 340 Output Total 700 1225 625 Balance 201 136 -285 Lab Results Last 24 Hours: Laboratory Results - last 24 hr 09/12/19 Range/Units 04:20 Phosphorus 3.3 (2.5-4.9) mg/dL Med Orders - Current: Current Medications Acetaminophen (Tylenol Extra Strength) 500 mg PO BID [facility] Last Admin: 09/12/19 10:11 Dose: 500 mg Acetaminophen (Tylenol) 650 mg PO Q4H PRN PRN Reason: Pain (mild 1-3) Amlodipine Besylate (Norvasc) 5 mg PO DAILY [facility] Last Admin: 09/12/19 10:12 Dose: 5 mg Diphenhydramine HCl (Benadryl) 50 mg PO BEDTIME PRN PRN Reason: Insomnia Last Admin: 09/11/19 20:10 Dose: 50 mg Dorzolamide HCl (Trusopt 2% Ophth Soln) 0 ml EYERT DAILY [facility] Last Admin: 09/12/19 10:09 Dose: 1 drop Doxycycline Hyclate (Vibramycin) 100 mg PO BID [facility] Stop: 09/13/19 21:01 Last Admin: 09/12/19 10:12 Dose: 100 mg Dutasteride (Avodart) 0.5 mg PO DAILY [facility] Last Admin: 09/12/19 10:11 Dose: 0.5 mg Fat Emulsion Intravenous (Intralipid 20%) 100 mls @ 8.3 mls/hr IV Q24H [facility] Last Admin: 09/11/19 16:09 Dose: 8.3 mls/hr Multivitamins/Minerals 10 ml/Chromium/Copper/Manganese/Seleni/Zn 1 ml/ Amino Ac/ Electrol/Dextrose/Calcium 1,011 mls @ 100 mls/hr IV .BY DURATION [facility] Last Admin: 09/11/19 23:31 Dose: 100 mls/hr Amino Ac/Electrol/Dextrose/Calcium (Clinimix E 5/15) 1,000 mls @ 100 mls/hr IV .BY DURATION [facility] Last Admin: 09/12/19 11:17 Dose: 100 mls/hr Loperamide HCl (Imodium) 2 mg PO TIDAC [facility] Last Admin: 09/12/19 10:11 Dose: 2 mg Melatonin (Melatonin) 9 mg PO BEDTIME PRN PRN Reason: Sleep Last Admin: 09/11/19 20:10 Dose: 9 mg Metoprolol Succinate (Toprol Xl) 12.5 mg PO DAILY [facility] Last Admin: 09/12/19 10:10 Dose: 12.5 mg Mirabegron (Myrbetriq) 50 mg PO DAILY [facility] Last Admin: 09/12/19 10:11 Dose: 50 mg Ondansetron HCl (Zofran Odt) 4 mg PO Q6H PRN PRN Reason: Nausea/Vomiting Pantoprazole Sodium (Protonix Granules) 40 mg PO BIDAC [facility] Last Admin: 09/12/19 07:46 Dose: 40 mg Psyllium Husk (Metamucil Sugar Free) 1 pkt PO TIDAC [facility] Last Admin: 09/12/19 11:17 Dose: 1 pkt Sodium Chloride (Saline Flush) 10 ml FLUSH ASDIRECTED PRN PRN Reason: IV Use Timolol Maleate (Timoptic 0.5% Ophth Soln) 0 ml EYEBOTH DAILY [facility] Last Admin: 09/12/19 10:09 Dose: 1 drop Venlafaxine HCl (Effexor Xr) 225 mg PO DAILY [facility] Last Admin: 09/12/19 10:11 Dose: 225 mg Discontinued Medications Magnesium Sulfate 2 gm/ Premix 50 mls @ 25 mls/hr IV Q6HR [facility] Stop: 09/10/19 05:59 Last Admin: 09/10/19 03:19 Dose: 25 mls/hr Multivitamins/Minerals 10 ml/Chromium/Copper/Manganese/Seleni/Zn 1 ml/ Amino Ac/ Electrol/Dextrose/Calcium 1,011 mls @ 100 mls/hr IV .BY DURATION [facility] Stop: 09/11/19 19:55 Last Admin: 09/10/19 15:43 Dose: 100 mls/hr Amino Ac/Electrol/Dextrose/Calcium (Clinimix E 03/02) 1,000 mls @ 100 mls/hr IV .BY DURATION [facility] Stop: 09/11/19 19:55 Last Admin: 09/11/19 12:52 Dose: 100 mls/hr Non-Formulary Medication (Total Parenteral Nutrition, Central) 1,000 ml .XX .Continue Order [facility] Stop: 09/12/19 12:00 - Exam General: Alert, Oriented, Cooperative, No Acute Distress Lungs: Clear to Auscultation, Normal Respiratory Effort Cardiovascular: Regular Rate, Regular Rhythm, No Murmurs GI/Abdominal Exam: Soft, Non-Tender, No Organomegaly, No Distention Extremities: Non-Tender, No Pedal Edema - Problem List Review Problem List Initiated/Reviewed/Updated: Yes - My Orders Last 24 Hours: My Active Orders 09/12/19 12:28 Central Line Assessment [RC] QSHIFT Central Line PICC Insertion [Central Venous Line Insertion] [OM.PC] Routine - Plan Plan:: ASSESSMENT AND PLAN - Severe protein calorie malnutrition - he has lost nearly 60 pounds in the last couple months despite dietary supplements and eating as much as possible. Oral intake has not been sufficient so he has been started on TPN. Absorption likely hampered by his high output ileostomy. -Nocturnal TPN for 90 days and reassess Rectal cancer status post surgical intervention and ileostomy - ileostomy output has improved with initiation of loperamide and psyllium. TPN initiated. Oral intake appears to be slowly improving. -Continue nocturnal TPN -Scheduled loperamide -Scheduled fiber supplements Wound infection - culture positive for MRSA. No significant pain but still some drainage. -Doxycycline twice daily for a total of 1 week end (09/13) Generalized weakness - secondary to poor nutrition and dehydration. -Physical therapy Maintenance issues - - DVT prophylaxis - mechanical - GI prophylaxis - PPI - Nutrition - regular diet CODE STATUS - full code Admission status - patient will be admitted to swing bed status for administration of nocturnal TPN as well as ongoing physical therapy to improve strength and endurance. Disposition - I would anticipate discharge home with home care and nocturnal TPN after the swing bed hospital stay
[2019-09-12] MEDS: Fat Emulsion 100 ML IV SCH (16:39)
[2019-09-12] MEDS: Melatonin 3 MG Tab PO PRN (22:24)
[2019-09-12] MEDS: diphenhydrAMINE 25 MG Cap PO PRN (22:27)
[2019-09-13] MEDS ORDERED: 1: AA 5%/Calcium/D15W/Lytes 1,000 ML with MVI, Adult with Vitamin K 10 ML, Chromium/Copp IV SCH ×3 (01:00)
[2019-09-13] MEDS: Loperamide 2 MG Cap PO SCH ×3 (08:44→15:53)
[2019-09-13] MEDS: Psyllium Husk Powder Sugar Free 5.85 GM Packet PO SCH ×3 (08:44→15:53)
[2019-09-13] MEDS: Metoprolol Succinate 25 MG Tab.ER PO SCH (08:44)
[2019-09-13] MEDS: Pantoprazole 40 MG Delayed-Release Granules 1 Packet PO SCH ×2 (08:44→15:53)
[2019-09-13] MEDS: Dutasteride 0.5 MG Cap PO SCH (08:45)
[2019-09-13] MEDS: Acetaminophen 500 MG Tab PO SCH ×2 (08:45→20:07)
[2019-09-13] MEDS: Mirabegron 25 MG Tab Extended Release PO SCH (08:45)
[2019-09-13] MEDS: Doxycycline 100 MG Cap PO SCH ×2 (08:45→20:06)
[2019-09-13] MEDS: Venlafaxine 75 MG Cap.ER PO SCH (08:46)
[2019-09-13] MEDS: Timolol Maleate 0.5% Ophth Soln 5 ML Bottle EYEBOTH SCH (08:48)
[2019-09-13] MEDS: amLODIPine 5 MG Tab PO SCH (08:48)
[2019-09-13] MEDS: Dorzolamide 2% Ophth Soln 10 ML Bottle EYERT SCH (08:49)
--- NOTE | 2019-09-13 11:28 | PN ---
DATE OF SERVICE: 09/13/2019 SUBJECTIVE: Dalton had his TPN turned off at 0600 today. It will be restarted at 6 p.m. this evening. Vital signs have been stable. Oral intake is 700. Urine output 1750. Ostomy put out 1100. REVIEW OF SYSTEMS: Remainder of review of systems negative for any pertinent positives and negatives. OBJECTIVE: GENERAL: Dalton Carey is a pleasant 84-year-old male. VITAL SIGNS: TPR is 96.4, 95, 18, and blood pressure 151/66. HEENT: Negative. NECK: Supple. HEART: Regular rate and rhythm. LUNGS: Clear. ABDOMEN: Colostomy intact. EXTREMITIES: Without peripheral edema. ASSESSMENT: 1. Severe protein malnutrition. 2. High output ileostomy. 3. Dehydration. 4. Weakness. 5. TPN therapy. 6. Rectal cancer. PLAN: 1. Continue same TPN content. Run TPN from 6 p.m. to 6 a.m. at rate per dietitian orders. 2. Check CBC, CMP, mag, phos, and BNP. 3. We will evaluate p.r.n. or in a.m. Liz Dai PA-C /[id number]
[2019-09-13] MEDS ORDERED: MVI, Adult with Vitamin K 10 ML, Chromium/Copper/Mang/Selen/Zn 1 ML in AA 5%/Calcium/D1... IV SCH ×3 (18:00)
[2019-09-13] MEDS ORDERED: Central Total Parenteral Nutrition Bag SCH (18:00)
[2019-09-13] MEDS: Fat Emulsion 100 ML IV SCH (18:02)
[2019-09-13] MEDS: diphenhydrAMINE 25 MG Cap PO PRN (20:07)
[2019-09-13] MEDS: Melatonin 3 MG Tab PO PRN (20:07)
[2019-09-14] MEDS: Pantoprazole 40 MG Delayed-Release Granules 1 Packet PO SCH ×2 (07:25→16:30)
[2019-09-14] MEDS: Loperamide 2 MG Cap PO SCH ×3 (07:25→16:30)
[2019-09-14] MEDS: Psyllium Husk Powder Sugar Free 5.85 GM Packet PO SCH ×3 (07:25→16:30)
[2019-09-14] MEDS ORDERED: Central Total Parenteral Nutrition Bag SCH (08:00)
[2019-09-14] MEDS: amLODIPine 5 MG Tab PO SCH (08:26)
[2019-09-14] MEDS: Mirabegron 25 MG Tab Extended Release PO SCH (08:26)
[2019-09-14] MEDS: Acetaminophen 500 MG Tab PO SCH ×2 (08:26→21:02)
[2019-09-14] MEDS: Dutasteride 0.5 MG Cap PO SCH (08:26)
[2019-09-14] MEDS: Timolol Maleate 0.5% Ophth Soln 5 ML Bottle EYEBOTH SCH (08:26)
[2019-09-14] MEDS: Metoprolol Succinate 25 MG Tab.ER PO SCH (08:26)
[2019-09-14] MEDS: Venlafaxine 75 MG Cap.ER PO SCH (08:26)
[2019-09-14] MEDS: Dorzolamide 2% Ophth Soln 10 ML Bottle EYERT SCH (08:27)
[2019-09-14] MEDS ORDERED: Magnesium Sulfate/Water 2 GM in Premix Bag 1 BAG IV ONE (09:00)
--- NOTE | 2019-09-14 10:29 | PN ---
DATE OF SERVICE: 09/14/2019 SUBJECTIVE: Abdi tolerated the TPN well for 12 hours during the night. He plans on discharge tomorrow with Home Healthcare. Vital signs have been stable. Oral intake is increasing. He had 1230 in. Breakfast consumed was 40, nothing was charted for lunch, and the 100% for dinner. REVIEW OF SYSTEMS: Remainder of review of systems negative for any pertinent positives or negatives. LABORATORY DATA: Labs this morning, hemoglobin 9.3, white count 5.8. Potassium 3.8. Liver function tests remain to be slightly elevated and protein 5.8 and albumin is 2.5. OBJECTIVE: GENERAL: Abdi is an 84-year-old male. VITAL SIGNS: Pulse 91, blood pressure 157/80, and respirations are 18. HEENT: Negative. NECK: Supple. HEART: Regular rate and rhythm. LUNGS: Clear. ABDOMEN: Ostomy in place. EXTREMITIES: Without peripheral edema. ASSESSMENT: 1. Severe protein malnutrition. 2. High-output ileostomy. 3. Dehydration. 4. Weakness. 5. Total parenteral nutrition therapy. 6. Rectal cancer. PLAN: Continue same TPN content with lipids. Run start at 6 p.m. tonight at 40 mL per hour; at 7, run at 75 mL per hour until 6 the next evening. On 09/15/2019, decrease to 40 mL. He plans to be discharged around 7 p.m. and then will resume TPN on Thursday when he gets home at 6 or 7 p.m. We will check CBC, CMP, mag, and phos in a.m. Good pulmonary toilet. Encourage ambulation. We will evaluate p.r.n. or in a.m. Liz Dai PA-C /[id number]
[2019-09-14] MEDS: MVI, Adult with Vitamin K 10 ML, Chromium/Copper/Mang/Selen/Zn 1 ML in AA 5%/Calcium/D1... IV SCH ×3 (17:55)
[2019-09-14] MEDS: Fat Emulsion 100 ML IV SCH (17:55)
[2019-09-14] MEDS: Melatonin 3 MG Tab PO PRN (21:02)
[2019-09-14] MEDS: diphenhydrAMINE 25 MG Cap PO PRN (21:02)
[2019-09-15 07:03] VITALS: PULSE 95
[2019-09-15 07:12] VITALS: BP 158/76
[2019-09-15] MEDS ORDERED: MVI, Adult with Vitamin K 10 ML, Chromium/Copper/Mang/Selen/Zn 1 ML in AA 5%/Calcium/D1... IV SCH ×3 (07:15)
[2019-09-15] MEDS: MVI, Adult with Vitamin K 10 ML, Chromium/Copper/Mang/Selen/Zn 1 ML in AA 5%/Calcium/D1... IV SCH ×3 (07:35)
[2019-09-15] MEDS: Loperamide 2 MG Cap PO SCH ×3 (07:37→15:28)
[2019-09-15] MEDS: Psyllium Husk Powder Sugar Free 5.85 GM Packet PO SCH ×4 (07:37→15:28)
[2019-09-15] MEDS: Venlafaxine 75 MG Cap.ER PO SCH ×2 (07:40→08:38)
[2019-09-15] MEDS: Dutasteride 0.5 MG Cap PO SCH ×2 (07:40→08:37)
[2019-09-15] MEDS: amLODIPine 5 MG Tab PO SCH ×2 (07:41→08:38)
[2019-09-15] MEDS: Mirabegron 25 MG Tab Extended Release PO SCH ×2 (07:41→08:38)
[2019-09-15] MEDS: Metoprolol Succinate 25 MG Tab.ER PO SCH ×2 (07:42→08:38)
[2019-09-15] MEDS: Acetaminophen 500 MG Tab PO SCH ×2 (07:42→08:38)
[2019-09-15] MEDS: Dorzolamide 2% Ophth Soln 10 ML Bottle EYERT SCH ×2 (07:44→08:38)
[2019-09-15] MEDS: Timolol Maleate 0.5% Ophth Soln 5 ML Bottle EYEBOTH SCH ×2 (07:44→08:38)
[2019-09-15] MEDS: Pantoprazole 40 MG Delayed-Release Granules 1 Packet PO SCH ×3 (08:11→16:14)
--- NOTE | 2019-09-15 11:06 | DISCH ---
ADMISSION DIAGNOSES: 1. Severe protein-calorie malnutrition. 2. High output ileostomy. 3. Dehydration. 4. Elevated troponin. 5. Weakness. 6. Hematemesis. 7. Rectal cancer. 8. Recent exploratory laparotomy with formation of ostomy. 9. Lumbar stenosis with neurogenic claudication. 10.Essential hypertension. 11.Chronic obstructive pulmonary disease. 12.Overactive bladder. 13.Hyperlipidemia. 14.Depression. 15.BPH. DISCHARGE DIAGNOSES: 1. Resolution of dehydration. 2. Severe protein-calorie malnutrition, treated with TPN. 3. Weakness, improved. 4. Rectal cancer with colostomy. 5. Lumbar stenosis with neurogenic claudication. 6. Essential hypertension. 7. Chronic obstructive pulmonary disease. 8. Overactive bladder. 9. BPH. 10.Hyperlipidemia. 11.Depression. 12.Methicillin-resistant Staphylococcus aureus. HISTORY: Dalton Carey was admitted on 09/09/2019 for management of acute kidney injury, dehydration, severe protein-calorie malnutrition secondary to high output of ileostomy. He had lost nearly 60 pounds in the last couple months, was eating as much as possible, and he was started on TPN. Wound infection did culture out MRSA and was on doxycycline. On 09/10, tolerated the 24-hour TPN. Labs looked good. On 09/11, he continued to be afebrile. Oral intake was worked on 09/12. His ostomy output decreased with Imodium. Oral intake was gradually increasing. He was able to be discharged to home on 12-hour TPN therapy running from 6 p.m. to 6 a.m. on 09/15/2019. PHYSICAL EXAMINATION: GENERAL: Dalton is a pleasant 84-year-old male. Height 5 feet 10.87 inches. Weight is 168 pounds. TPR is 96.5, 95, 18, blood pressure 161/91. HEENT: Negative. NECK: Supple. HEART: Regular rate and rhythm. LUNGS: Clear. ABDOMEN: Colostomy intact. EXTREMITIES: Without peripheral edema. DISPOSITION: Discharged to home. CONDITION: Stable and improving. FOLLOWUP: Followup appointment with Sanchez David MD, on 09/21/2019 at 10 a.m. DISCHARGE MEDICATION: He is to resume home medication: Tylenol 500 mg twice daily, dorzolamide, Trusopt 2% ophthalmic solution one drop right eye daily, Avodart 0.5 mg daily, Imodium 2 mg 3 times a day before meals, Toprol-XL 12.5 mg oral daily, mirabegron 50 mg oral daily, Compazine 10 mg every 6 hours, Timoptic 0.5% one drop both eyes daily, Effexor 225 mg oral daily. New prescription at pharmacy was Imodium 2 mg 3 times a day scheduled. DIET: Usual diet as tolerated. Increase protein. Drink 8 to 10 glasses of water a day. ACTIVITY: As tolerated, may shower. DISCHARGE INSTRUCTIONS: Notify provider if any fever, pain, nausea, or vomiting. TPN as directed and labs as directed through [facility].
[2019-09-15] MEDS: Fat Emulsion 100 ML IV SCH (18:32)
== END 2019-09-15 18:32 | disposition home health service (06) | DRG 641 ==
LOC: JP.MS 11:44 → JP.ICU 11:44 → UNDOADMIN 11:44 → JP.ICU 11:45 → JP.MS 11:50
PROVIDERS: ADMIT Internal Medicine; ATTEND Hospitalist
PROC: 3E0336Z Introduction of Nutritional Substance into Peripheral Vein, Percutaneous Approach (ICD-10-PCS; principal; 2019-09-09)
PROC: 05HY33Z Insertion of Infusion Device into Upper Vein, Percutaneous Approach (ICD-10-PCS; 2019-09-12)
DX: E43 Unspecified severe protein-calorie malnutrition (principal); C20 Malignant neoplasm of rectum; R53.1 Weakness; E86.0 Dehydration; M48.062 Spinal stenosis, lumbar region with neurogenic claudication; I10 Essential (primary) hypertension; J44.9 Chronic obstructive pulmonary disease, unspecified; N32.81 Overactive bladder; N40.0 Benign prostatic hyperplasia without lower urinary tract symptoms; E78.5 Hyperlipidemia, unspecified; B95.62 Methicillin resistant Staphylococcus aureus infection as the cause of diseases classified elsewhere; H54.7 Unspecified visual loss; M19.90 Unspecified osteoarthritis, unspecified site; G89.29 Other chronic pain; M54.9 Dorsalgia, unspecified; F31.9 Bipolar disorder, unspecified; R19.8 Other specified symptoms and signs involving the digestive system and abdomen; S31.109A Unspecified open wound of abdominal wall, unspecified quadrant without penetration into peritoneal cavity, initial encounter; Z93.2 Ileostomy status; Z79.899 Other long term (current) drug therapy; Z68.23 Body mass index [BMI] 23.0-23.9, adult; Z98.49 Cataract extraction status, unspecified eye; Z90.89 Acquired absence of other organs
CPT/HCPCS: 36415; 80053; 83735; 83880; 84100; 85027; 97110-GP; 97162-GP; 97165-GO; 97530-GP; 97535-GP; A9270-GY; J3475; J3490

== ENCOUNTER 2019-10-24 08:33 | Day surgery (SDC) | payer MEDICARE, OTHER ==
[~2019-10-24 08:33] MED LIST changes: +Dextrose 5%-Lactated Ringers 1,000 ML IV SCH; -Lactated Ringers 1,000 ML IV SCH
[2019-10-24] MEDS ORDERED: Propofol 200 MG/20 ML SDV ONE (13:00)
[2019-10-24 14:31] VITALS: PULSE 89
[2019-10-24 15:00] VITALS: BP 172/88
--- NOTE | 2019-10-28 14:41 | OR ---
DATE OF PROCEDURE: 10/24/2019 SURGEON: Sanchez David MD PREOPERATIVE DIAGNOSIS: History of rectal adenocarcinoma, status post preoperative chemoradiation treatment and subsequent low-anterior resection. POSTOPERATIVE DIAGNOSIS: History of rectal adenocarcinoma, status post preoperative chemoradiation treatment and subsequent low-anterior resection. OPERATIVE PROCEDURE: Flexible colonoscopy. ANESTHESIA: IV sedation. INDICATIONS FOR PROCEDURE: This is an 84-year-old status post treatment of a mid-to-low rectal adenocarcinoma with preoperative neoadjuvant chemotherapy, followed by a low-anterior resection with diverting ileostomy. The patient is approaching three months postoperatively and would like to have the ileostomy taken down. The plan is to proceed with flexible colonoscopy to assess the integrity of the anastomosis and also examine the more proximal colon, which was incompletely examined prior to his rectal carcinoma diagnosis. Potential risks including bleeding and perforation were discussed, and the patient wishes to proceed. DETAILS OF PROCEDURE: The patient was taken to the operating room and placed in a left lateral decubitus position. IV sedation was administered, after which, the initial digital rectal exam was performed. The anal sphincter and anal canal were somewhat leathery and less pliable than normal due to radiation changes, but certainly did allow the examining finger and colonoscope in without difficulty. The remaining rectum, as expected, showed significant radiation changes with the mucosa being somewhat stiffened and friable on its surface. Colorectal anastomosis was identified, and this appeared to be well healed with the entire anastomosis being intact. There did not appear to be any sinus tracts or any signs of previous leakage. The scope was then eventually passed to the level of the ileocecal valve. Prep was fairly good with only small amount of liquid stool present. No additional findings were identified. The scope was then withdrawn and the above findings reconfirmed. The patient was taken to the recovery room in satisfactory condition. Sanchez David MD /[id number]
== END 2019-10-24 15:04 | disposition home or self-care (01) ==
LOC: JP.SDS 08:33
PROVIDERS: ATTEND Surgery
DX: Z08 Encounter for follow-up examination after completed treatment for malignant neoplasm (principal); Z43.2 Encounter for attention to ileostomy; Z85.048 Personal history of other malignant neoplasm of rectum, rectosigmoid junction, and anus; Z92.21 Personal history of antineoplastic chemotherapy; Z90.49 Acquired absence of other specified parts of digestive tract
CPT/HCPCS: 45378; J2704; J7121

== ENCOUNTER 2019-11-15 08:00 | Inpatient (IN) | payer MEDICARE, OTHER ==
[~2019-11-15 08:00] MED LIST changes: -Dextrose 5%-Lactated Ringers 1,000 ML IV SCH; +Meropenem 500 MG SDV ONE
[2019-11-15] MEDS ORDERED: Propofol 200 MG/20 ML SDV ONE (08:21)
[2019-11-15] MEDS ORDERED: Rocuronium 50 MG/5 ML Vial ONE (08:21)
[2019-11-15] MEDS ORDERED: Glycopyrrolate 0.2 MG/ML 5 ML MDV ONE (08:21)
[2019-11-15] MEDS ORDERED: Neostigmine Methylsulfate 1 MG/ML 5 ML Syringe ONE (08:21)
[2019-11-15] MEDS ORDERED: Ondansetron 4 MG/2 ML SDV ONE (08:21)
[2019-11-15] MEDS ORDERED: Succinylcholine 200 MG/10 ML MDV ONE (08:21)
[2019-11-15] MEDS ORDERED: Dexamethasone 4 MG/ML SDV ONE (08:21)
[2019-11-15] MEDS ORDERED: fentaNYL 250 MCG/5 ML SDV ONE (08:24)
[2019-11-15] MEDS ORDERED: Gabapentin 300 MG Cap PO ONE (08:45)
[2019-11-15] MEDS ORDERED: Acetaminophen 500 MG Tab PO ONE (08:45)
[2019-11-15] MEDS: Dextrose 5%-Lactated Ringers 1,000 ML IV SCH ×3 (08:51→19:37)
[2019-11-15] MEDS ORDERED: Ropivacaine 35 ML, dexAMETHasone 8 MG, EPINEPHrine 0.4 MG, Sodium Chloride 0.9% 42.6 ML NERVRT SCH ×4 (10:00)
[2019-11-15] MEDS: cefOXitin 2 GM in Sodium Chloride 0.9% 50 ML IV ONE ×2 (10:39→17:41)
[2019-11-15] MEDS ORDERED: Bupivacaine 0.5%/EPINEPHrine 1:200,000 50 ML MDV ONE (11:34)
[2019-11-15] MEDS ORDERED: fentaNYL 100 MCG/2 ML SDV ONE (11:37)
[2019-11-15] MEDS ORDERED: Labetalol 20 MG/4 ML Syringe IVPUSH ONE (12:43)
[2019-11-15] MEDS ORDERED: Ondansetron 4 MG/2 ML SDV IVPUSH PRN (13:41)
[2019-11-15] MEDS ORDERED: hydrOXYzine HCL 100 MG/2 ML SDV IM PRN (13:41)
[2019-11-15] MEDS ORDERED: HYDROmorphone 1 MG/ML Syringe IV PRN (13:41)
[2019-11-15] MEDS ORDERED: Dextrose 5%-Lactated Ringers 1,000 ML IV SCH (13:45)
[2019-11-15] MEDS ORDERED: Labetalol 20 MG/4 ML Syringe IVPUSH PRN (14:25)
[2019-11-15] MEDS: Pantoprazole 40 MG Vial IVPUSH SCH (17:23)
[2019-11-15] MEDS: Dutasteride 0.5 MG Cap PO SCH (17:25)
[2019-11-15] MEDS: Mirabegron 25 MG Tab Extended Release PO SCH (17:25)
[2019-11-15] MEDS: Acetaminophen 325 MG Tab PO SCH ×2 (17:26→19:41)
[2019-11-15] MEDS: cefOXitin 2 GM in Sodium Chloride 0.9% 50 ML IV SCH (17:30)
[2019-11-15] MEDS: Dorzolamide 2% Ophth Soln 10 ML Bottle EYERT SCH (21:44)
[2019-11-15] MEDS: Docusate Sodium 100 MG Cap PO SCH (21:44)
[2019-11-16] MEDS: cefOXitin 2 GM in Sodium Chloride 0.9% 50 ML IV SCH ×4 (00:13→20:13)
[2019-11-16] MEDS: Acetaminophen 325 MG Tab PO SCH ×7 (00:13→23:54)
[2019-11-16] MEDS: Dextrose 5%-Lactated Ringers 1,000 ML IV SCH ×2 (02:53→13:46)
[2019-11-16] MEDS: Docusate Sodium 100 MG Cap PO SCH ×2 (09:23→20:14)
[2019-11-16] MEDS: Dutasteride 0.5 MG Cap PO SCH (09:23)
[2019-11-16] MEDS: Venlafaxine 75 MG Cap.ER PO SCH (09:24)
[2019-11-16] MEDS: amLODIPine 5 MG Tab PO SCH (09:25)
[2019-11-16] MEDS: Timolol Maleate 0.5% Ophth Soln 5 ML Bottle EYEBOTH SCH (09:26)
[2019-11-16] MEDS: Dorzolamide 2% Ophth Soln 10 ML Bottle EYERT SCH ×2 (09:26→20:14)
[2019-11-16] MEDS: Metoprolol Succinate 25 MG Tab.ER PO SCH (09:27)
[2019-11-16] MEDS: Magnesium Sulfate/Water 2 GM in Premix Bag 1 BAG IV SCH ×3 (09:29→21:23)
[2019-11-16] MEDS: Mirabegron 25 MG Tab Extended Release PO SCH (10:35)
--- NOTE | 2019-11-16 11:01 | PN ---
DATE OF SERVICE: 11/16/2019 SUBJECTIVE: Dalton is postoperative day #1. States his pain is controlled and is having quite a bit of cramping. He had 1 episode where he felt like he had to have a bowel movement. He otherwise has been up walking, sitting in the chair. Oral intake 200. Urine output 1000 via Perez catheter. REVIEW OF SYSTEMS: Remainder of review of systems negative for any pertinent positives and negatives. OBJECTIVE: GENERAL: Dalton Carey is an 84-year-old male, alert and orientated. VITAL SIGNS: TPR from 03:39 is 96.2, 79, 20, blood pressure 165/79. HEENT: Negative. NECK: Supple. HEART: Regular rate and rhythm. LUNGS: Clear. ABDOMEN: Dressings dry and intact. Abdominal binder is on. EXTREMITIES: Without peripheral edema. ASSESSMENT: Takedown ileostomy and placement of Interceed mesh for rectal cancer, status post ileostomy. Date: 11/15/2019. Surgeon: Sanchez David MD. PLAN: 1. Have consent signed for delayed primary closure, IV local and TAP block, , 11/17/2019. Surgeon: Sanchez David MD. N.p.o. after midnight. TAP block ordered. 2. Decrease IV to 100 mL per hour. 3. Magnesium sulfate 2 g IV q.6 hours x72 hours. 4. Good pulmonary toilet. 5. We will evaluate p.r.n. or in a.m. Liz Dai PA-C /[id number]
[2019-11-16] MEDS: Pantoprazole 40 MG Vial IVPUSH SCH (17:17)
[2019-11-17] MEDS: Dextrose 5%-Lactated Ringers 1,000 ML IV SCH ×2 (00:26→19:21)
[2019-11-17] MEDS: Acetaminophen 325 MG Tab PO SCH ×6 (03:55→23:06)
[2019-11-17] MEDS: Magnesium Sulfate/Water 2 GM in Premix Bag 1 BAG IV SCH ×4 (04:12→22:16)
[2019-11-17] MEDS ORDERED: Meropenem 500 MG SDV ONE (06:33)
[2019-11-17] MEDS ORDERED: Bupivacaine 0.5% 50 ML MDV ONE (06:33)
[2019-11-17] MEDS ORDERED: Lidocaine 1% with EPINEPHrine 1:100,000 50 ML MDV ONE (06:34)
[2019-11-17] MEDS ORDERED: fentaNYL 100 MCG/2 ML SDV ONE (07:00)
[2019-11-17] MEDS ORDERED: Propofol 200 MG/20 ML SDV ONE (07:00)
[2019-11-17] MEDS ORDERED: Ropivacaine 36 ML, dexAMETHasone 8 MG, EPINEPHrine 0.4 MG, Sodium Chloride 0.9% 41.6 ML NERVRT SCH ×4 (07:15)
[2019-11-17] MEDS: Dutasteride 0.5 MG Cap PO SCH (08:48)
[2019-11-17] MEDS: Venlafaxine 75 MG Cap.ER PO SCH (08:50)
[2019-11-17] MEDS: Mirabegron 25 MG Tab Extended Release PO SCH (08:50)
[2019-11-17] MEDS: amLODIPine 5 MG Tab PO SCH (08:50)
[2019-11-17] MEDS: Metoprolol Succinate 25 MG Tab.ER PO SCH (08:51)
[2019-11-17] MEDS: Dorzolamide 2% Ophth Soln 10 ML Bottle EYERT SCH ×2 (08:52→21:39)
[2019-11-17] MEDS: Timolol Maleate 0.5% Ophth Soln 5 ML Bottle EYEBOTH SCH (08:52)
[2019-11-17] MEDS: Docusate Sodium 100 MG Cap PO SCH ×2 (08:53→21:40)
--- NOTE | 2019-11-17 10:07 | PN ---
DATE OF SERVICE: 11/17/2019 SUBJECTIVE: Abdi is n.p.o. He is going down for a delayed primary closure today. In the past 24 hours, he has been ambulating quite a bit. He has had 4 loose bowel movements. Tolerating a full liquid diet. Oral intake 300. Urine output via Perez catheter 500 mL. Pain has been controlled. REVIEW OF SYSTEMS: Remainder of review of systems negative for any pertinent positives and negatives. OBJECTIVE: GENERAL: Abdi Carey is a pleasant 84-year-old male. LAST VITAL SIGNS: At 02:13, 96, 88, 16, blood pressure 155/78. HEENT: Negative. NECK: Supple. HEART: Regular rate and rhythm. LUNGS: Clear. ABDOMEN: Dressing dry and intact. EXTREMITIES: Without peripheral edema. ASSESSMENT: Takedown ileostomy and placement of Interceed mesh for rectal cancer, status post ileostomy. Date: 11/15/2019. Surgeon: Sanchez David MD. PLAN: Orders will be written per Sanchez David MD. He will be started on a full liquid diet and Perez will be discontinued. Continue good pulmonary toilet. We will evaluate p.r.n. or in a.m. Liz Dai PA-C /[id number]
[2019-11-17] MEDS: Piperacillin/Tazobactam/Dext 3.375 GM in Premix Bag 1 BAG IV SCH ×3 (11:29→21:41)
[2019-11-17] MEDS: Calcium Polycarbophil 625 MG Tab PO SCH ×2 (11:29→21:39)
[2019-11-17] MEDS: Pantoprazole 40 MG Vial IVPUSH SCH (16:06)
[2019-11-18] MEDS: HYDROmorphone 0.5 MG/0.5 ML Syringe IVPUSH PRN (01:44)
[2019-11-18] MEDS: Magnesium Sulfate/Water 2 GM in Premix Bag 1 BAG IV SCH ×4 (04:26→22:19)
[2019-11-18] MEDS: Acetaminophen 325 MG Tab PO SCH ×6 (04:26→23:26)
[2019-11-18] MEDS: Piperacillin/Tazobactam/Dext 3.375 GM in Premix Bag 1 BAG IV SCH ×4 (04:27→21:38)
[2019-11-18] MEDS: Dextrose 5%-Lactated Ringers 1,000 ML IV SCH (06:13)
[2019-11-18] MEDS: Dutasteride 0.5 MG Cap PO SCH (09:19)
[2019-11-18] MEDS: Docusate Sodium 100 MG Cap PO SCH ×2 (09:20→20:07)
[2019-11-18] MEDS: Venlafaxine 75 MG Cap.ER PO SCH (09:20)
[2019-11-18] MEDS: Calcium Polycarbophil 625 MG Tab PO SCH ×2 (09:20→20:09)
[2019-11-18] MEDS: Mirabegron 25 MG Tab Extended Release PO SCH (09:20)
[2019-11-18] MEDS: Dorzolamide 2% Ophth Soln 10 ML Bottle EYERT SCH ×2 (09:21→20:08)
[2019-11-18] MEDS: Metoprolol Succinate 25 MG Tab.ER PO SCH (09:21)
[2019-11-18] MEDS: amLODIPine 5 MG Tab PO SCH (09:21)
[2019-11-18] MEDS: Timolol Maleate 0.5% Ophth Soln 5 ML Bottle EYEBOTH SCH (09:21)
--- NOTE | 2019-11-18 14:31 | PN ---
DATE OF SERVICE: 11/18/2019 SUBJECTIVE: Abdi had delayed primary closure today. He had 4 bowel movements. Vital signs have been stable, on a full-liquid diet. Oral intake 960. Urine output was difficult to measure due to urinating with bowel movements. He did have 180 mL on a bladder scan after voiding. REVIEW OF SYSTEMS: Remainder of review of systems negative for any pertinent positives and negatives. OBJECTIVE: GENERAL: Dalton Carey is an 84-year-old male. He is alert and orientated. VITAL SIGNS: TPR is 95.9, 64, 16, and blood pressure 152/65. HEENT: Negative. NECK: Supple. HEART: Regular rate and rhythm. LUNGS: Clear. ABDOMEN: Dressings dry and intact. Abdominal binder is on. EXTREMITIES: Without peripheral edema. ASSESSMENT: Takedown ileostomy and placement of Interceed mesh for rectal cancer, status post ileostomy. Date: 11/15/2019. Surgeon: Sanchez David MD. Delayed primary closure on 11/18/2019; Sanchez David MD. PLAN: 1. Regular diet. 2. Postvoid bladder scan to check for residual urine. 3. Shower. 4. Saline lock IV. 5. Good pulmonary toilet. 6. We will evaluate p.r.n. or in a.m. Liz Dai PA-C /[id number]
[2019-11-18] MEDS: Pantoprazole 40 MG Delayed-Release Granules 1 Packet PO SCH (16:39)
[2019-11-19] MEDS: Acetaminophen 325 MG Tab PO SCH ×5 (03:36→20:41)
[2019-11-19] MEDS: Piperacillin/Tazobactam/Dext 3.375 GM in Premix Bag 1 BAG IV SCH ×2 (03:37→09:17)
[2019-11-19] MEDS: Magnesium Sulfate/Water 2 GM in Premix Bag 1 BAG IV SCH (04:40)
[2019-11-19] MEDS: HYDROmorphone 0.5 MG/0.5 ML Syringe IVPUSH PRN (04:41)
[2019-11-19] MEDS: Dutasteride 0.5 MG Cap PO SCH (09:12)
[2019-11-19] MEDS: Venlafaxine 75 MG Cap.ER PO SCH (09:13)
[2019-11-19] MEDS: Docusate Sodium 100 MG Cap PO SCH (09:13)
[2019-11-19] MEDS: Calcium Polycarbophil 625 MG Tab PO SCH ×2 (09:14→20:42)
[2019-11-19] MEDS: Mirabegron 25 MG Tab Extended Release PO SCH (09:14)
[2019-11-19] MEDS: amLODIPine 5 MG Tab PO SCH (09:14)
[2019-11-19] MEDS: Metoprolol Succinate 25 MG Tab.ER PO SCH (09:15)
[2019-11-19] MEDS: Timolol Maleate 0.5% Ophth Soln 5 ML Bottle EYEBOTH SCH (09:15)
[2019-11-19] MEDS: Dorzolamide 2% Ophth Soln 10 ML Bottle EYERT SCH ×2 (09:16→20:43)
[2019-11-19] MEDS: Loperamide 2 MG Cap PO SCH ×3 (10:26→20:42)
[2019-11-19] MEDS ORDERED: HYDROmorphone 2 MG Tab PO PRN (11:28)
[2019-11-19] MEDS ORDERED: Ondansetron 4 MG Tab.DIS PO PRN (11:30)
[2019-11-19] MEDS ORDERED: Dimethicone 20%/Zinc Oxide 25% 56 GM Spray Bottle TOP PRN (15:14)
[2019-11-19] MEDS: Pantoprazole 40 MG Delayed-Release Granules 1 Packet PO SCH (16:02)
[2019-11-20] MEDS: Acetaminophen 325 MG Tab PO SCH ×2 (01:19→04:49)
[2019-11-20 02:39] VITALS: BP 162/74; PULSE 84
--- NOTE | 2019-11-20 13:45 | PN ---
DATE OF SERVICE: 11/19/2019 The patient has been afebrile with stable vital signs. No major problems were noted overnight. He is still having frequent loose bowel movements. I think we will add scheduled Imodium 2 mg t.i.d. and will likely be ready for discharge home tomorrow. Continue the IV antibiotics with the delayed primary closure of the ostomy site, and then we will change the Aquacel dressing tomorrow checking the wound at that time. He will be planning to discharge home tomorrow morning. Sanchez David MD /[id number]
--- NOTE | 2019-11-21 06:31 | OR ---
DATE OF PROCEDURE: 11/15/2019 SURGEON: Sanchez David MD PREOPERATIVE DIAGNOSIS: Status ileostomy. POSTOPERATIVE DIAGNOSES: 1. Status ileostomy. 2. Extensive intraabdominal adhesions. OPERATIVE PROCEDURE: 1. Takedown of ileostomy with attendant small bowel resection (88438). 2. Placement of Interceed mesh to limit recurrent adhesion formation between pelvic and abdominal salas and underlying viscera (50371). ANESTHESIA: General. [employer]: Liz Dai PA-C. INDICATION FOR PROCEDURE: This is an 84-year-old status post ileostomy to protect a local colorectal anastomosis for a rectal cancer that had been treated with preoperative neoadjuvant chemotherapy. At this point, the patient appears to be doing well and is to have the ileostomy taken down. Potential risks of the procedure including bleeding, infection, leaks from the anastomosis, problems with bowel obstruction over time, as well as the remote possibility of cardiopulmonary, septic, or hemorrhagic complications leading to were discussed, and the patient wishes to proceed. DETAILS OF PROCEDURE: The patient was taken to the operating room and placed in a supine position. After general endotracheal anesthesia was induced, a Perez catheter was inserted. Initially, the ileostomy was then tied off with a pursestring stitch of 0 Prolene stitch. Ileostomy and surrounding areas were then prepped and draped. Roughly, a 2 mm rim of skin adjacent to the ileostomy was then excised with elliptical extensions laterally and medially to facilitate a more adequate closure. The dissection then continued down along the edge of the ileostomy until the fascia was encountered. The peritoneal cavity just below that was then entered, and the peritoneal attachments to the ileostomy were then divided circumferentially allowing the small bowel to be pulled up into the field. Surrounding the ileostomy, initially, there had been quite a bit in the way of adhesions present. Once these were taken down of the small bowel, they will be pulled up well above the opening. The ileostomy itself was then resected leaving 2 stapled-off ends in the small bowel adjacent to each other. These were then united with firing of an Endo-REMY 60 mm stapler, followed by a second firing of 45 mm stapler. Common opening was then closed transversely with a purple REMY load, and the angles anastomosed, and mesenteric defect approximated with some 3-0 Vicryl stitch. The newly anastomosed small bowel was the placed back into the peritoneal cavity after being reinforced with some fibrin sealant. The area was then irrigated with meropenem-containing saline solution to limit recurrent adhesion formation between the area underlying the incision and from there down toward the pelvis, Interceed mesh was then placed. The fascia was then closed posteriorly with a layer of #1 Vicryl stitch, and the anterior fascia layer was closed with #1 Vicryl stitch as well. The skin and subcutaneous tissue were then packed open for a planned delayed primary closure. The patient had transversus abdominis plane blocks x2 on the right side and none were placed on the left, as this entire procedure was right-sided in terms of the abdominal wall location. The patient was taken to the recovery room in satisfactory condition. There were no evident complications. [employer]ician high [employer] assistant principal, Liz Dai, played an essential role in assisting in this case, helping to position the patient, retract structures as needed, as well as suturing and cutting sutures when indicated. Her presence improved patient safety and decreased the operative time. Sanchez David MD /[id number] cc: Aime Sesay MD
--- NOTE | 2019-11-21 06:37 | DISCH ---
FINAL DIAGNOSIS: Status ileostomy. SECONDARY DIAGNOSES: 1. History of rectal carcinoma, status post neoadjuvant chemotherapy followed by a low- anterior resection with protective ileostomy. 2. Benign prostatic hyperplasia. 3. Essential hypertension. 4. History of depression. 5. History of hyperlipidemia. 6. Chronic obstructive pulmonary disease. OPERATIVE PROCEDURES: 1. On 11/15/2019, takedown of ileostomy with placement of Interceed mesh. 2. On 11/17/2019, delayed primary closure of ostomy site incision. SUMMARY: This is an 84-year-old who last summer was noted to have a rectal carcinoma. The patient underwent a course of preoperative chemoradiation treatment and then in July a low anterior resection with protective ileostomy. He was admitted at this time for ileostomy closure and this was done on the day of admission with secondary closure of the ostomy incision site on postop day #2. Clinically, he has done well this morning. He is moving his bowels fairly actively and hopefully this will slow down. He will be sent home with his usual medications plus Imodium 2 mg p.o. t.i.d. p.r.n. and FiberCon 2 tablets p.o. daily; the latter hopefully will bulk up the stools. Follow up will be with Dr. David at [facility] on 11/30/2019. cc: Aime Sesay MD
--- NOTE | 2019-11-25 10:33 | OR ---
DATE OF PROCEDURE: 11/15/2019 SURGEON: Sanchez David MD PREOPERATIVE DIAGNOSIS: Status ileostomy. POSTOPERATIVE DIAGNOSIS: Status ileostomy. OPERATIVE PROCEDURES: 1. Small bowel resection associated with takedown of ileostomy (84249). 2. Placement of Interceed mesh to limit adhesion formation between pelvic and abdominal wall and underlying viscera (23445). ANESTHESIA: General. DIRECTOR RECREATION: Liz Dai PA-C. INDICATIONS FOR PROCEDURE: The patient is status post a low-anterior resection with a diverting ileostomy for a low rectal carcinoma associated with preoperative neoadjuvant chemotherapy. At this point, he is a little bit beyond 3 months following the resection and recent examination of the anastomosis showed it to be satisfactory healed, and at this point the plan is to proceed with takedown of the ileostomy. Potential risks of the procedure including bleeding, infection, leaks from GI tract closure, bowel obstruction over time, as well as remote possibility of cardiopulmonary, septic, or hemorrhagic complications leading to were discussed, and the patient wishes to proceed. DETAILS OF PROCEDURE: The patient was taken to the operating room and placed in a supine position. After general endotracheal anesthesia was induced, a Perez catheter was inserted. The ileostomy was then sutured off with 0 Prolene stitch and the abdomen was then prepped and draped maintaining roughly 1 to 2 mm margin around the ileostomy. A transversely oriented elliptical incision was made, carried down through the skin and subcutaneous tissue. The dissection then continued around the edges of the ileostomy down to the level of the fascia. At that point, the peritoneal cavity could be entered adjacent to the ileostomy initially inferiorly and then the ileostomy dissected away from the peritoneal attachments circumferentially. This allowed an upward mobilization of the ileostomy which was then resected with 2 firings of the REMY stapler. Two [id number] segments of bowel were then anastomosed with an initial internal firing of the Endo-REMY 60 mm stapler followed by a 30 mm internal firing. Common opening was then closed transversely with the REMY stapler as well and the angles anastomosed were reinforced with some 3-0 Vicryl stitch. At that point, the anastomosis appeared to be satisfactory and the small bowel was then placed back into the peritoneal cavity. The patient was felt to be at high risk for significant adhesion formation in that area and given this, an Interceed mesh was placed underneath the incision and directed down toward the pelvis and along the adjacent abdominal wall to displace those surfaces from the underlying viscera to limit recurrent adhesion formation. The posterior peritoneum and initial layer of fascia were then approximated with a #1 Vicryl stitch as was the more anterior fascial layer. The skin and subcutaneous tissue were then packed open for a planned delayed primary closure in 48 hours. The patient had received bilateral transversus abdominis plane blocks using ultrasound guidance and the incision was anesthetized with 1% lidocaine as well. The patient was taken to the recovery room in satisfactory condition. Sanchez David MD /[id number]
--- NOTE | 2019-11-27 16:25 | OR ---
DATE OF PROCEDURE: 11/16/2019 SURGEON: Sanchez David MD PREOPERATIVE DIAGNOSIS: Open abdominal incision. POSTOPERATIVE DIAGNOSIS: Open abdominal incision. OPERATIVE PROCEDURE: Delayed primary closure of open abdominal incision. ANESTHESIA: IV sedation. INDICATIONS FOR PROCEDURE: This is an 84-year-old status post takedown of ileostomy 48 hours earlier. At that time, the wound was packed open for a planned delayed primary closure as this incision obviously would be at high risk for wound infection if primary closure was undertaken. Potential risks including bleeding and infection were reviewed, and the patient wishes to proceed. DETAILS OF PROCEDURE: The patient was taken to the operating room and placed in supine position. IV sedation was administered after which the operative dressing was taken down. The wound inspected, found to be clean. The wound was then prepped and draped, anesthetized with 1% lidocaine, and irrigated with meropenem-containing saline solution. The wound did come together best with a vertical orientation in terms of closure. The deeper soft tissues were packed with 2 layers of 3-0 and 4-0 Vicryl stitch deep and then emory for the skin. Dressing was applied. The patient was taken to the recovery room in satisfactory condition. Sanchez David MD /[id number]
== END 2019-11-20 08:04 | disposition still patient (30) | DRG 330 ==
LOC: JP.SDS 08:00 → JP.SDSSCHI 08:00 → EDSTATUS 08:15 → JP.MS 11:55
PROVIDERS: ADMIT Surgery; ATTEND Surgery
PROC: 0DBB0ZZ Excision of Ileum, Open Approach (ICD-10-PCS; principal; 2019-11-15)
PROC: 3E0M05Z Introduction of Adhesion Barrier into Peritoneal Cavity, Open Approach (ICD-10-PCS; 2019-11-15)
DX: Z43.2 Encounter for attention to ileostomy (principal); C20 Malignant neoplasm of rectum; N40.0 Benign prostatic hyperplasia without lower urinary tract symptoms; I10 Essential (primary) hypertension; F32.9 Major depressive disorder, single episode, unspecified; E78.5 Hyperlipidemia, unspecified; J44.9 Chronic obstructive pulmonary disease, unspecified; M54.40 Lumbago with sciatica, unspecified side; Z96.652 Presence of left artificial knee joint; G89.29 Other chronic pain; M17.0 Bilateral primary osteoarthritis of knee; Z98.49 Cataract extraction status, unspecified eye; Z98.890 Other specified postprocedural states; Z79.899 Other long term (current) drug therapy; Z90.89 Acquired absence of other organs
CPT/HCPCS: 36415; 51798; 80053; 83735; 84100; 85027; 88304; 94762; A9270-GY; C9113; J0171; J0330; J0694; J1100; J1170; J2020; J2185; J2405; J2543; J2704; J2710; J2795; J3010; J3475; J3490; J7050; J7121

== ENCOUNTER 2020-02-21 17:40 | Emergency (ER) | payer MEDICARE, OTHER ==
[2020-02-21 17:56] VITALS: BP 178/96; PULSE 84
[2020-02-21] MEDS ORDERED: Sodium Chloride 0.9% 10 ML Syringe FLUSH PRN (18:06)
[2020-02-21] MEDS ORDERED: Acetaminophen/HYDROcodone 325-5 MG Tab PO ONE (18:31)
--- NOTE | 2020-02-21 18:37 | EDM.PDOC ---
ED HPI GENERAL MEDICAL PROBLEM - General Chief Complaint: Back Pain or Injury Stated Complaint: BACK PAIN/LOWER Time Seen by Provider: 02/21/20 18:00 Source of Information: Reports: Patient, Family, Old Records History Limitations: Reports: No Limitations - History of Present Illness INITIAL COMMENTS - FREE TEXT/NARRATIVE: 84 yo male here with low back pain and radiation down his legs associated with movement. Most pain down the right leg, less down the left leg. Has had some bowel and bladder incontinence, but also has had prostate surgery for BPH and bowel surgery with recent colostomy take down. Is on Flomax now at 0.4 mg and still has urination nearly every hour. Pain relief is partial with Tramadol and gabapentin and [place]. Is down to 2 tablets of [place] in his home supply. Not able to tolerated closed MRI due to claustrophobia, has had MRI in past in [place] with their open unit. Radiology currently recommending CT of lumbar spine to see if they can ID an area for injection of steroids. Not a good surgical candidate. L4L5 has been his problem level in the past. Onset: Gradual Duration: Chronic, Getting Worse Location: Reports: Back (low) Quality: Reports: Ache Severity: Severe (at times with movement.) Improves with: Reports: Rest Worsens with: Reports: Movement Context: Reports: Other (see HPI) Associated Symptoms: Reports: No Other Symptoms Treatments [employer]: Reports: Other (see below) (home meds, had Tramadol 50 mg po ) - Related Data Allergies Allergy/AdvReac Type Severity Reaction Status Date / Time No Known Allergies Allergy Verified 10/24/19 09:05 Home Meds: Home Meds Dutasteride [Avodart] 0.5 mg PO BEDTIME 08/08/16 [History] Timolol Maleate/PF [Timoptic 0.5% Ocudose Drop] 1 drop EYEBOTH DAILY 08/08/16 [ History] Venlafaxine [Effexor XR] 225 mg PO DAILY 08/08/16 [History] Metoprolol Succinate [Toprol XL] 12.5 mg PO DAILY 03/29/19 [History] amLODIPine [Norvasc] 5 mg PO DAILY 03/29/19 [History] Dorzolamide [Trusopt 2% Ophth Soln] 1 drop EYERT BID 08/04/19 [History] Acetaminophen [Tylenol Extra Strength] 500 mg PO BID 08/24/19 [History] Loperamide [Imodium] 4 mg PO TID 10/24/19 [History] Cholestyramine (With Sugar) [Cholestyramine Powder] 26 mg PO ASDIRECTED [History] Dicyclomine [Bentyl] 10 mg PO BEDTIME 02/21/20 [History] Gabapentin [Neurontin] 600 mg PO BID 02/21/20 [History] Tamsulosin HCl [Flomax] 0.4 mg PO DAILY 02/21/20 [History] fentaNYL [Duragesic] 1 patch TD Q72H #3 patch 02/21/20 [Rx] traMADol [Ultram] 50 mg PO Q6H PRN 02/21/20 [History] Past Medical History HEENT History: Reports: Cataract, Impaired Vision, Other (See Below) Other HEENT History: borderline glaucoma Cardiovascular History: Reports: Hypertension Respiratory History: Reports: COPD Gastrointestinal History: Reports: Cholelithiasis, Colon Polyp, Other (See Below ) Other Gastrointestinal History: history of rectal fissure Genitourinary History: Reports: Prostate Disorder Other Genitourinary History: enlarged prostate Musculoskeletal History: Reports: Arthritis, Back Pain, Chronic, Fracture Neurological History: Reports: None Psychiatric History: Reports: Bipolar, Depression Oncologic (Cancer) History: Reports: Colon, Other (See Below) Other Oncologic History: rectal - Infectious Disease History Infectious Disease History: Reports: MRSA - Past Surgical History HEENT Surgical History: Reports: Cataract Surgery, Detached Retina, Tonsillectomy Cardiovascular Surgical History: Reports: None Respiratory Surgical History: Reports: None GI Surgical History: Reports: Colonoscopy, Other (See Below) Other GI Surgeries/Procedures: colon CA with resection and ileostomy Male Surgical History: Reports: None Neurological Surgical History: Reports: Laminectomy Musculoskeletal Surgical History: Reports: Knee Replacement Social & Family History - Family History Family Medical History: Noncontributory - Caffeine Use Caffeine Use: Reports: Coffee, Soda ED ROS GENERAL - Review of Systems Review Of Systems: Comprehensive ROS is negative, except as noted in HPI. Constitutional: Reports: No Symptoms GI/Abdominal: Reports: Diarrhea (at times, controlling with Questran), Stool Incontinence (since his colostomy take down). Denies: Nausea : Reports: Frequency (a1h). Denies: Dysuria, Flank Pain, Hematuria Musculoskeletal: Reports: Back Pain (low) Skin: Reports: No Symptoms Neurological: Reports: Other (pain down both legs, R>L) Psychiatric: Reports: No Symptoms ED EXAM,LOWER BACK PAIN/INJURY - Physical Exam Exam: See Below Exam Limited By: No Limitations General Appearance: Alert, WD/WN, No Apparent Distress Eye Exam: Bilateral Eye: Normal Inspection Ears: Normal External Exam, Normal Canal, Hearing Grossly Normal, Normal TMs Nose: Normal Inspection, No Blood Throat/Mouth: Normal Inspection Head: Atraumatic, Normocephalic Neck: Normal Inspection Respiratory/Chest: No Respiratory Distress, Lungs Clear, Normal Breath Sounds, No Accessory Muscle Use Cardiovascular: Regular Rate, Rhythm, No Edema GI/Abdominal: Normal Bowel Sounds, Soft, Non-Tender, No Distention Back Exam: Normal Inspection. No: CVA Tenderness (R), CVA Tenderness (L) Extremities: Normal Inspection, Non-Tender, No Pedal Edema Neurological: Alert, Normal Mood/Affect, CN II-XII Intact, No Motor/Sensory Deficits, Oriented x 3 Psychiatric: Normal Affect, Normal Mood Skin Exam: Warm, Dry, Intact, Normal Color, No Rash Course - Vital Signs Last Recorded V/S: Last Vital Signs Temp 36.3 C 02/21/20 17:57 Pulse 84 02/21/20 17:57 Resp 16 02/21/20 17:57 BP 178/96 H 02/21/20 17:57 Pulse Ox 99 02/21/20 17:57 - Orders/Labs/Meds Orders: Active Orders 24 hr Category Date Time Status UA W/MICROSCOPIC [URIN] Urgent Lab 02/21/20 17:51 Ordered Sodium Chloride 0.9% [Saline Flush] Med 02/21/20 18:06 Active 10 ml FLUSH ASDIRECTED PRN fentaNYL [Duragesic] Med 02/21/20 18:45 Active 12 mcg TRDERM Q72H Saline Lock Insert [OM.PC] Routine Oth 02/21/20 18:06 Ordered Medication Orders Fentanyl (Duragesic) 12 mcg TRDERM Q72H [facility] Last Admin: 02/21/20 19:02 Dose: 12 mcg Sodium Chloride (Saline Flush) 10 ml FLUSH ASDIRECTED PRN PRN Reason: Keep Vein Open Labs: Laboratory Tests 02/21/20 02/21/20 02/21/20 Range/Units 18:00 18:00 18:00 WBC 7.1 (4.5-11.0) K/uL RBC 4.37 (4.30-5.90) M/uL Hgb 11.9 L (12.0-15.0) g/dL Hct 38.7 L (40.0-54.0) % MCV 89 (80-98) fL MCH 27 (27-31) pg MCHC 31 L (32-36) % Plt Count 236 (150-400) K/uL Neut % (Auto) 72 H (36-66) % Lymph % (Auto) 14 L (24-44) % [place] % (Auto) 8 H (2-6) % Eos % (Auto) 5 H (2-4) % Baso % (Auto) 0 (0-1) % Sodium 141 (140-148) mmol/L Potassium 3.8 (3.6-5.2) mmol/L Chloride 102 (100-108) mmol/L Carbon Dioxide 31 (21-32) mmol/L Anion Gap 8.4 (5.0-14.0) mmol/L BUN 23 H (7-18) mg/dL Creatinine 0.9 (0.8-1.3) mg/dL Est Cr Clr Drug Dosing 67.40 mL/min Estimated GFR (MDRD) > 60 (>60) Glucose 106 (74-106) mg/dL Calcium 8.9 (8.5-10.1) mg/dL Magnesium 1.9 (1.8-2.4) mg/dL Total Bilirubin 0.3 (0.2-1.0) mg/dL AST 13 L (15-37) U/L ALT 20 (12-78) U/L Alkaline Phosphatase 112 (46-116) U/L Total Protein 7.1 (6.4-8.2) g/dL Albumin 3.8 (3.4-5.0) g/dL Globulin 3.3 (2.3-3.5) g/dL Albumin/Globulin Ratio 1.2 (1.2-2.2) Meds: Medications Generic Name Dose Route Start Last Admin Trade Name Freq PRN Reason Stop Dose Admin Fentanyl 12 mcg 02/21/20 18:45 02/21/20 19:02 Duragesic TRDERM 12 mcg Q72H [facility] Administration Sodium Chloride 10 ml 02/21/20 18:06 Saline Flush FLUSH ASDIRECTED PRN Keep Vein Open Discontinued Medications Generic Name Dose Route Start Last Admin Trade Name Jarek PRN Reason Stop Dose Admin Hydrocodone Bitart/Acetaminophen 1 tab 02/21/20 18:31 02/21/20 18:52 [place] 325-5 Mg PO 02/21/20 18:32 1 tab ONETIME ONE Administration - Radiology Interpretation Free Text/Narrative:: CT lumbar spine- IMPRESSION: Acute or subacute fracture in the superior endplate at L5. Multilevel degenerative spondylosis present in the lower lumbar spine with central canal stenosis at L5. Consider MRI evaluation to further assess nerve root compression. Dictated by William Eden MD @ 02/21/2020 7:17:[address] Results Date: 02/21/20 CT Results Time: :20 Departure - Departure Time of Disposition: 19:29 Disposition: Home, Self-Care 01 Condition: Fair Clinical Impression: Low back pain Qualifiers: Chronicity: chronic Back pain laterality: bilateral Sciatica presence: with sciatica Sciatica laterality: sciatica of right side Qualified Code(s): M54.41 - Lumbago with sciatica, right side; G89.29 - Other chronic pain - Discharge Information *PRESCRIPTION DRUG MONITORING PROGRAM REVIEWED*: No *COPY OF PRESCRIPTION DRUG MONITORING REPORT IN PATIENT HILARY: No Prescriptions: fentaNYL [Duragesic] 1 patch TD Q72H #3 patch Instructions: Chronic Back Pain, [id number] Referrals: Aime Sesay MD [Primary Care Provider] - Forms: ED Department Discharge Additional Instructions: Change your Fentanyl patch every 72 hrs. Use the hydrocodone for break through pain as needed. Continue your other meds as before. F/U with radiology to plan an epidural injection to see if this provides you with pain relief. Sepsis Event Note - Evaluation Sepsis Screening Result: No Definite Risk - Focused Exam Vital Signs: Vital Signs Temp Pulse Resp BP Pulse Ox 02/21/20 17:57 36.3 C 84 16 178/96 H 99 02/21/20 17:54 36.3 C 84 16 178/96 H 99 Date Exam was Performed: 02/21/20 Time Exam was Performed: 19:29 - My Orders Last 24 Hours: My Active Orders 02/21/20 18:06 Sodium Chloride 0.9% [Saline Flush] 10 ml FLUSH ASDIRECTED PRN Saline Lock Insert [OM.PC] Routine 02/21/20 18:45 fentaNYL [Duragesic] 12 mcg TRDERM Q72H - Assessment/Plan Last 24 Hours: My Active Orders 02/21/20 18:06 Sodium Chloride 0.9% [Saline Flush] 10 ml FLUSH ASDIRECTED PRN Saline Lock Insert [OM.PC] Routine 02/21/20 18:45 fentaNYL [Duragesic] 12 mcg TRDERM Q72H
[2020-02-21] MEDS ORDERED: fentaNYL 12 MCG/HR Transdermal Patch TRDERM SCH (18:45)
--- NOTE | 2020-02-21 19:19 | CRLCT ---
INDICATION: Back pain with radiculopathy. TECHNIQUE: CT lumbar spine without contrast. COMPARISON: None FINDINGS: Vertebrae: Alignment is normal. Acute or subacute compression fracture in the superior endplate of L5 is present with mild retropulsion. No other acute fractures or suspicious bone lesions. Multiple moderate-size anterior endplate osteophytes present at all levels. Discs and facet joints: Degenerative disc spondylosis present and most severe at L3-4, L4-5, and L5-S1. Moderate multilevel facet joint spondylosis. Central canal stenosis present at the L5 level. Extraspinal findings: Prevertebral soft tissues and visualized retroperitoneum are unremarkable. IMPRESSION: Acute or subacute fracture in the superior endplate at L5. Multilevel degenerative spondylosis present in the lower lumbar spine with central canal stenosis at L5. Consider MRI evaluation to further assess nerve root compression. Dictated by William Eden MD @ 02/21/2020 7:17:34 PM Please note that all CT scans at this facility use dose modulation, iterative reconstruction, and/or weight-based dosing when appropriate to reduce radiation dose to as low as reasonably achievable. Dictated by: William Eden MD @ 02/21/2020 19:17:40 (Electronically Signed)
== END 2020-02-21 19:39 | disposition home or self-care (01) ==
LOC: JP.ED 17:40
DX: M54.41 Lumbago with sciatica, right side (principal)
CPT/HCPCS: 36415; 72131; 80053; 83735; 85025; 99283; 99284; A9270

== ENCOUNTER 2020-03-26 12:07 | Inpatient (IN) | payer MEDICARE, OTHER ==
[2020-03-26] MEDS ORDERED: Sodium Chloride 0.9% 1,000 ML IV SCH (12:45)
--- NOTE | 2020-03-26 12:57 | EDM.PDOC ---
ED HPI GENERAL MEDICAL PROBLEM - General Chief Complaint: Gastrointestinal Problem Stated Complaint: [facility] Time Seen by Provider: 03/26/20 12:30 Source of Information: Reports: Patient, EMS, Family History Limitations: Reports: No Limitations - History of Present Illness INITIAL COMMENTS - FREE TEXT/NARRATIVE: 84-year-old male with profuse watery diarrhea for the past several hours, coffee -ground emesis for the past couple of days resulting in hypotension. Weakness is profound, cannot get up on his own. Sent in by ambulance for evaluation. He also had a left inguinal hernia that was difficult to reduce over the past several days but is now not a problem. No fevers or chills, no respiratory symptoms. Appetite is been adequate. No recent antibiotic. Onset: Gradual (Nausea vomiting and hematemesis is been gradual over the past several days, diarrhea started fairly suddenly this morning) Associated Symptoms: Reports: Malaise, Nausea/Vomiting, Weakness. Denies: Fever /Chills, Shortness of Breath - Related Data Allergies Allergy/AdvReac Type Severity Reaction Status Date / Time No Known Allergies Allergy Verified 03/26/20 12:15 Home Meds: Home Meds Dutasteride [Avodart] 0.5 mg PO BEDTIME 08/08/16 [History] Timolol Maleate/PF [Timoptic 0.5% Ocudose Drop] 1 drop EYEBOTH DAILY 08/08/16 [ History] Venlafaxine [Effexor XR] 225 mg PO DAILY 08/08/16 [History] Metoprolol Succinate [Toprol XL] 12.5 mg PO DAILY 03/29/19 [History] amLODIPine [Norvasc] 5 mg PO DAILY 03/29/19 [History] Dorzolamide [Trusopt 2% Ophth Soln] 1 drop EYERT BID 08/04/19 [History] Acetaminophen [Tylenol Extra Strength] 500 mg PO BID 08/24/19 [History] Loperamide [Imodium] 4 mg PO TID 10/24/19 [History] Acetaminophen/HYDROcodone [[place] 325-5 MG] 1 - 2 tab PO Q6H PRN #7 tab 02/21/20 [Rx] Cholestyramine (With Sugar) [Cholestyramine Powder] 26 mg PO ASDIRECTED [History] Dicyclomine [Bentyl] 10 mg PO BEDTIME 02/21/20 [History] Gabapentin [Neurontin] 600 mg PO BID 02/21/20 [History] Tamsulosin HCl [Flomax] 0.4 mg PO DAILY 02/21/20 [History] traMADol [Ultram] 50 mg PO Q6H PRN 02/21/20 [History] Past Medical History HEENT History: Reports: Cataract, Impaired Vision, Other (See Below) Other HEENT History: borderline glaucoma Cardiovascular History: Reports: Hypertension Respiratory History: Reports: COPD Gastrointestinal History: Reports: Cholelithiasis, Colon Polyp, Other (See Below ) Other Gastrointestinal History: history of rectal fissure Genitourinary History: Reports: Prostate Disorder Other Genitourinary History: enlarged prostate Musculoskeletal History: Reports: Arthritis, Back Pain, Chronic, Fracture Neurological History: Reports: None Psychiatric History: Reports: Bipolar, Depression Oncologic (Cancer) History: Reports: Colon, Other (See Below) Other Oncologic History: rectal - Infectious Disease History Infectious Disease History: Reports: MRSA - Past Surgical History HEENT Surgical History: Reports: Cataract Surgery, Detached Retina, Tonsillectomy Cardiovascular Surgical History: Reports: None Respiratory Surgical History: Reports: None GI Surgical History: Reports: Colonoscopy, Other (See Below) Other GI Surgeries/Procedures: colon CA with resection and ileostomy Male Surgical History: Reports: None Neurological Surgical History: Reports: Laminectomy Musculoskeletal Surgical History: Reports: Knee Replacement Social & Family History - Family History Family Medical History: Noncontributory - Tobacco Use Smoking Status *Q: Never Smoker - Caffeine Use Caffeine Use: Reports: Coffee, Soda ED ROS GENERAL - Review of Systems Review Of Systems: See Below Constitutional: Reports: Malaise, Weakness. Denies: Fever, Chills HEENT: Denies: Vision Change Respiratory: Denies: Shortness of Breath Cardiovascular: Denies: Chest Pain GI/Abdominal: Reports: Diarrhea, Nausea, Vomiting. Denies: Abdominal Pain Skin: Reports: Pallor Neurological: Reports: Weakness ED EXAM, GI/ABD - Physical Exam Exam: See Below Exam Limited By: No Limitations General Appearance: Alert, No Apparent Distress Eyes: Bilateral: Normal Appearance Head: Atraumatic Respiratory/Chest: No Respiratory Distress, Lungs Clear Cardiovascular: Regular Rate, Rhythm GI/Abdominal Exam: Normal Bowel Sounds, Soft, Non-Tender, Other (Patient has a reducible inguinal hernia in the left groin) Extremities: No: Pedal Edema Neurological: Alert, Oriented Psychiatric: Flat Affect Skin Exam: Pallor (Appears to be somewhat pale) Course - Vital Signs Last Recorded V/S: Last Vital Signs Temp 98.4 F 03/26/20 16:06 Pulse 97 03/26/20 16:06 Resp 18 03/26/20 16:06 BP 131/71 03/26/20 16:06 Pulse Ox 99 03/26/20 16:06 - Orders/Labs/Meds Orders: Active Orders 24 hr Category Date Time Status CULTURE STOOL + SHIGATOX [] Stat Lab 03/26/20 13:11 Results Clostridium [CLOS DIFFICILE PCR W/REFLEX] [] Stat Lab 03/26/20 13:11 Results Medication Orders Hydrocodone Bitart/Acetaminophen ([place] 325-5 Mg) 1 - 2 tab PO Q4H PRN PRN Reason: Pain Amlodipine Besylate (Norvasc) 5 mg PO DAILY [facility] Dicyclomine HCl (Bentyl) 10 mg PO BEDTIME [facility] Dorzolamide HCl (Trusopt 2% Ophth Soln) ml EYERT BID [facility] Dutasteride (Avodart) 0.5 mg PO BEDTIME [facility] Enoxaparin Sodium (Lovenox) 40 mg SUBCUT Q24H [facility] Last Admin: 03/26/20 15:47 Dose: 40 mg Gabapentin (Neurontin) 600 mg PO BID [facility] Lactated Ringer's (Ringers, Lactated) 1,000 mls @ 125 mls/hr IV ASDIRECTED [facility] Last Admin: 03/26/20 15:44 Dose: 125 mls/hr Potassium Chloride 20 meq/Lidocaine HCl 2 ml/ Sodium Chloride 112 mls @ 56 mls/ hr IV Q2H [facility] Stop: 03/26/20 20:29 Last Admin: 03/26/20 18:29 Dose: 56 mls/hr Infusion: 03/26/20 18:29 Dose: 56 mls/hr Admin: 03/26/20 16:49 Dose: 56 mls/hr Metoprolol Succinate (Toprol Xl) 12.5 mg PO DAILY [facility] Non-Formulary Medication (Cholestyramine (With Sugar) [Cholestyramine Powder]) 26 mg PO ASDIRECTED [facility] Non-Formulary Medication (Timolol Maleate/Pf [Timoptic 0.5% Ocudose Drop]) 1 drop EYEBOTH DAILY [facility] Ondansetron HCl (Zofran) 4 mg IV Q4H PRN PRN Reason: Nausea/Vomiting Pantoprazole Sodium (Protonix Iv) 40 mg IVPUSH Q12H [facility] Last Admin: 03/26/20 16:46 Dose: 40 mg Sodium Chloride (Saline Flush) 10 ml FLUSH ASDIRECTED PRN PRN Reason: Keep Vein Open Tamsulosin HCl (Flomax) 0.4 mg PO DAILY [facility] Venlafaxine HCl (Effexor Xr) 225 mg PO DAILY [facility] Labs: Laboratory Tests 03/26/20 03/26/20 03/26/20 Range/Units 12:59 12:59 12:59 WBC 11.5 H (4.5-11.0) K/uL RBC 4.85 (4.30-5.90) M/uL Hgb 13.5 (12.0-15.0) g/dL Hct 41.3 (40.0-54.0) % MCV 85 (80-98) fL MCH 28 (27-31) pg MCHC 33 (32-36) % Plt Count 310 (150-400) K/uL Neut % (Auto) 82 H (36-66) % Lymph % (Auto) 7 L (24-44) % [place] % (Auto) 11 H (2-6) % Eos % (Auto) 0 L (2-4) % Baso % (Auto) 0 (0-1) % Sodium 135 L (140-148) mmol/L Potassium 3.5 L (3.6-5.2) mmol/L Chloride 98 L (100-108) mmol/L Carbon Dioxide 27 (21-32) mmol/L Anion Gap 13.5 (5.0-14.0) mmol/L BUN 59 H D (7-18) mg/dL Creatinine 1.3 (0.8-1.3) mg/dL Est Cr Clr Drug Dosing 46.66 mL/min Estimated GFR (MDRD) 53 L (>60) Glucose 117 H (74-106) mg/dL Lactic Acid 1.5 (0.4-2.0) mmol/L Calcium 8.6 (8.5-10.1) mg/dL Total Bilirubin 0.6 D (0.2-1.0) mg/dL AST 16 (15-37) U/L ALT 23 (12-78) U/L Alkaline Phosphatase 83 (46-116) U/L Total Protein 6.4 (6.4-8.2) g/dL Albumin 3.3 L (3.4-5.0) g/dL Globulin 3.1 (2.3-3.5) g/dL Albumin/Globulin Ratio 1.1 L (1.2-2.2) Meds: Medications Generic Name Dose Route Start Last Admin Trade Name Freq PRN Reason Stop Dose Admin Hydrocodone Bitart/Acetaminophen 1 - 2 tab 03/26/20 14:38 [place] 325-5 Mg PO Q4H PRN Pain Amlodipine Besylate 5 mg 03/27/20 09:00 Norvasc PO DAILY [facility] Dicyclomine HCl 10 mg 03/26/20 21:00 Bentyl PO BEDTIME [facility] Dorzolamide HCl ml 03/26/20 21:00 Trusopt 2% Ophth Soln EYERT BID [facility] Dutasteride 0.5 mg 03/26/20 21:00 Avodart PO BEDTIME [facility] Enoxaparin Sodium 40 mg 03/26/20 16:00 03/26/20 15:47 Lovenox SUBCUT 40 mg Q24H [facility] Administration Gabapentin 600 mg 03/26/20 21:00 Neurontin PO BID [facility] Lactated Ringer's 1,000 mls @ 125 mls/hr 03/26/20 14:38 03/26/20 15:44 Ringers, Lactated IV 125 mls/hr ASDIRECTED [facility] Administration Potassium Chloride 20 meq/ 112 mls @ 56 mls/hr 03/26/20 16:30 03/26/20 18:29 Lidocaine HCl 2 ml/ Sodium IV 03/26/20 20:29 56 mls/hr Chloride Q2H [facility] Administration Metoprolol Succinate 12.5 mg 03/27/20 09:00 Toprol Xl PO DAILY [facility] Non-Formulary Medication 26 mg 03/26/20 14:38 Cholestyramine (With Sugar) [Cholestyramine Powder] PO ASDIRECTED [facility] Non-Formulary Medication 1 drop 03/27/20 09:00 Timolol Maleate/Pf [Timoptic 0.5% Ocudose Drop] EYEBOTH DAILY [facility] Ondansetron HCl 4 mg 03/26/20 14:38 Zofran IV Q4H PRN Nausea/Vomiting Pantoprazole Sodium 40 mg 03/26/20 16:00 03/26/20 16:46 Protonix Iv IVPUSH 40 mg Q12H [facility] Administration Sodium Chloride 10 ml 03/26/20 14:38 Saline Flush FLUSH ASDIRECTED PRN Keep Vein Open Tamsulosin HCl 0.4 mg 03/27/20 09:00 Flomax PO DAILY [facility] Venlafaxine HCl 225 mg 03/27/20 09:00 Effexor Xr PO DAILY [facility] Discontinued Medications Generic Name Dose Route Start Last Admin Trade Name Freq PRN Reason Stop Dose Admin Sodium Chloride 1,000 mls @ 1,000 mls/hr 03/26/20 12:45 03/26/20 13:14 Normal Saline IV 1,000 mls/hr ASDIRECTED [facility] Administration - Re-Assessments/Exams Free Text/Narrative Re-Assessment/Exam: 03/26/20 14:10 Patient had no additional nausea or vomiting while in the emergency room. White count was 11,500, lactic acid normal at 1.5. CT the abdomen pelvis without contrast showed a possible partial small bowel obstruction versus ileus. This was discussed with Dr. Velazquez of the hospitalist service, he will evaluate the patient for admission and treatment. Departure - Departure Time of Disposition: 15:46 Disposition: Admitted As Inpatient 68 Clinical Impression: Partial small bowel obstruction, Dehydration Nausea & vomiting Qualifiers: Vomiting type: unspecified Vomiting Intractability: non-intractable Qualified Code(s): R11.2 - Nausea with vomiting, unspecified - Discharge Information Sepsis Event Note - Evaluation Sepsis Screening Result: No Definite Risk - Focused Exam Vital Signs: Vital Signs Temp Pulse Resp BP Pulse Ox 03/26/20 12:18 96 03/26/20 12:14 97.1 F 51 L 20 127/83 Date Exam was Performed: 03/26/20 Time Exam was Performed: 18:52 - My Orders Last 24 Hours: My Active Orders 03/26/20 13:11 CULTURE STOOL + SHIGATOX [RM] Stat Clostridium [CLOS DIFFICILE PCR W/REFLEX] [RM] Stat - Assessment/Plan Last 24 Hours: My Active Orders 03/26/20 13:11 CULTURE STOOL + SHIGATOX [RM] Stat Clostridium [CLOS DIFFICILE PCR W/REFLEX] [] Stat
--- NOTE | 2020-03-26 14:05 | CT ---
Abdomen Pelvis wo Cont CLINICAL HISTORY: Vomiting and abdominal distention COMPARISON: August 2019. TECHNIQUE: Axial tomographic images are obtained from the dome of the diaphragm to the pubic symphysis without IV contrast enhancement. No oral contrast was used. Prescribed dose FINDINGS: The lung bases are clear. The liver shows no mass or biliary dilatation. The gallbladder has a normal appearance. The spleen has a normal size and shape. The pancreas shows some atrophic changes. The adrenal glands appear normal bilaterally. The kidneys contain multiple low-attenuation foci bilaterally. Largest on the right has a maximum diameter 3.2 cm. Largest on the left has a maximum diameter 3.4 cm. These are unchanged since August 2019. The aorta shows atheromatous changes without aneurysm. There is no suspicious retroperitoneal adenopathy. There is generalized distention of proximal and mid small bowel the mid to distal ileum has a normal caliber. A definite transition point is not identified but this may be near the site of previous colon surgery. There is liquid stool throughout the colon. IMPRESSION: Moderate generalized small bowel distention with a relatively normal caliber mid to distal ileum. This may represent partial small bowel obstruction. The ileus can have a similar appearance. Clinical correlation necessary Previous colon surgery Multiple cysts both kidneys unchanged since August 2019
--- NOTE | 2020-03-26 14:27 | PCM.HP.2 ---
H&P History of Present Illness - General Date of Service: 03/26/20 Admit Problem/Dx: Admission Diagnosis/Problem Admission Diagnosis/Problem Small bowel obstruction Source of Information: Patient - History of Present Illness Initial Comments - Free Text/Narative: Mr. Carey is an 84-year-old gentleman who was admitted through the emergency department with nausea, vomiting, and diarrhea secondary to partial small bowel obstruction. 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 In October of this past year he did undergo takedown of his ileostomy. Since then he has had ongoing difficulty with bowel movements, feeling as though he has to go and then having an uncontrolled bowel movement. Over the past several weeks he has had difficulty with his severe spinal stenosis and is status post epidural steroid injection done approximately 3 weeks ago. This did result in good pain control from the spinal stenosis. Over the last 4 days he has had nausea and vomiting, when it started he was noted to have coffee-ground appearing emesis. Today he is more weak and has had multiple watery bowel movements. Evaluation in the emergency department, white blood cell count is mildly elevated. Other labs are unremarkable. CT scan of the abdomen pelvis shows evidence of possible partial small bowel obstruction. - Related Data Allergies/Adverse Reactions: Allergies Allergy/AdvReac Type Severity Reaction Status Date / Time No Known Allergies Allergy Verified 03/26/20 12:15 Home Medications: Home Meds Dutasteride [Avodart] 0.5 mg PO BEDTIME 08/08/16 [History] Timolol Maleate/PF [Timoptic 0.5% Ocudose Drop] 1 drop EYEBOTH DAILY 08/08/16 [ History] Venlafaxine [Effexor XR] 225 mg PO DAILY 08/08/16 [History] Metoprolol Succinate [Toprol XL] 12.5 mg PO DAILY 03/29/19 [History] amLODIPine [Norvasc] 5 mg PO DAILY 03/29/19 [History] Dorzolamide [Trusopt 2% Ophth Soln] 1 drop EYERT BID 08/04/19 [History] Acetaminophen [Tylenol Extra Strength] 500 mg PO BID 08/24/19 [History] Loperamide [Imodium] 4 mg PO TID 10/24/19 [History] Acetaminophen/HYDROcodone [[place] 325-5 MG] 1 - 2 tab PO Q6H PRN #7 tab 02/21/20 [Rx] Cholestyramine (With Sugar) [Cholestyramine Powder] 26 mg PO ASDIRECTED [History] Dicyclomine [Bentyl] 10 mg PO BEDTIME 02/21/20 [History] Gabapentin [Neurontin] 600 mg PO BID 02/21/20 [History] Tamsulosin HCl [Flomax] 0.4 mg PO DAILY 02/21/20 [History] traMADol [Ultram] 50 mg PO Q6H PRN 02/21/20 [History] Past Medical History HEENT History: Reports: Cataract, Impaired Vision, Other (See Below) Other HEENT History: borderline glaucoma Cardiovascular History: Reports: Hypertension Respiratory History: Reports: COPD Gastrointestinal History: Reports: Cholelithiasis, Colon Polyp, Other (See Below ) Other Gastrointestinal History: history of rectal fissure Genitourinary History: Reports: Prostate Disorder Other Genitourinary History: enlarged prostate Musculoskeletal History: Reports: Arthritis, Back Pain, Chronic, Fracture Neurological History: Reports: None Psychiatric History: Reports: Bipolar, Depression Oncologic (Cancer) History: Reports: Colon, Other (See Below) Other Oncologic History: rectal - Infectious Disease History Infectious Disease History: Reports: MRSA - Past Surgical History HEENT Surgical History: Reports: Cataract Surgery, Detached Retina, Tonsillectomy Cardiovascular Surgical History: Reports: None Respiratory Surgical History: Reports: None GI Surgical History: Reports: Colonoscopy, Other (See Below) Other GI Surgeries/Procedures: colon CA with resection and ileostomy Male Surgical History: Reports: None Neurological Surgical History: Reports: Laminectomy Musculoskeletal Surgical History: Reports: Knee Replacement Social & Family History - Family History Family Medical History: Noncontributory - Tobacco Use Smoking Status *Q: Never Smoker - Caffeine Use Caffeine Use: Reports: Coffee, Soda H&P Review of Systems - Review of Systems: Review Of Systems: See Below General: Reports: Weakness, Fatigue, Decreased Appetite. Denies: Fever, Chills HEENT: Reports: No Symptoms Pulmonary: Reports: No Symptoms Cardiovascular: Reports: No Symptoms Gastrointestinal: Reports: Diarrhea, Decreased Appetite, Distension, Nausea, Stool Incontinence, Vomiting. Denies: Abdominal Pain, Difficulty Swallowing Genitourinary: Reports: No Symptoms Musculoskeletal: Reports: Back Pain Skin: Reports: No Symptoms Psychiatric: Reports: No Symptoms Neurological: Reports: No Symptoms Hematologic/Lymphatic: Reports: No Symptoms Immunologic: Reports: No Symptoms Exam - Exam Exam: See Below - Vital Signs Vital Signs: Last Vital Signs Temp 97.1 F 03/26/20 12:14 Pulse 51 L 03/26/20 12:14 Resp 20 03/26/20 12:14 BP 127/83 03/26/20 12:14 Pulse Ox 96 03/26/20 12:18 Weight: 176 lb - Exam Quality Assessment: DVT Prophylaxis General: Alert, Oriented, Cooperative, Mild Distress HEENT: Conjunctiva Clear, Normal Nasal Septum, Posterior Pharynx Clear, Pupils Equal. No: Mucosa Moist & [place]ichard Neck: Supple, Trachea Midline, +2 Carotid Pulse wo Bruit Lungs: Clear to Auscultation, Normal Respiratory Effort Cardiovascular: Regular Rate, Regular Rhythm, Normal S1, Normal S2. No: Systolic Murmur, Diastolic Murmur GI/Abdominal Exam: Soft, Non-Tender, No Organomegaly, Distended, Hernia (Left inguinal). No: Guarding, Rebound Extremities: Non-Tender, No Pedal Edema Skin: Warm, Dry, Intact - Patient Data Lab Results Last 24 hrs: Laboratory Results - last 24 hr 03/26/20 03/26/20 03/26/20 Range/Units 12:59 12:59 12:59 WBC 11.5 H (4.5-11.0) K/uL RBC 4.85 (4.30-5.90) M/uL Hgb 13.5 (12.0-15.0) g/dL Hct 41.3 (40.0-54.0) % MCV 85 (80-98) fL MCH 28 (27-31) pg MCHC 33 (32-36) % Plt Count 310 (150-400) K/uL Neut % (Auto) 82 H (36-66) % Lymph % (Auto) 7 L (24-44) % [place] % (Auto) 11 H (2-6) % Eos % (Auto) 0 L (2-4) % Baso % (Auto) 0 (0-1) % Sodium 135 L (140-148) mmol/L Potassium 3.5 L (3.6-5.2) mmol/L Chloride 98 L (100-108) mmol/L Carbon Dioxide 27 (21-32) mmol/L Anion Gap 13.5 (5.0-14.0) mmol/L BUN 59 H D (7-18) mg/dL Creatinine 1.3 (0.8-1.3) mg/dL Est Cr Clr Drug Dosing 46.66 mL/min Estimated GFR (MDRD) 53 L (>60) Glucose 117 H (74-106) mg/dL Lactic Acid 1.5 (0.4-2.0) mmol/L Calcium 8.6 (8.5-10.1) mg/dL Total Bilirubin 0.6 D (0.2-1.0) mg/dL AST 16 (15-37) U/L ALT 23 (12-78) U/L Alkaline Phosphatase 83 (46-116) U/L Total Protein 6.4 (6.4-8.2) g/dL Albumin 3.3 L (3.4-5.0) g/dL Globulin 3.1 (2.3-3.5) g/dL Albumin/Globulin Ratio 1.1 L (1.2-2.2) Result Diagrams: 03/26/20 12:59 03/26/20 12:59 Sepsis Event Note - Evaluation Sepsis Screening Result: No Definite Risk - Focused Exam Vital Signs: Vital Signs Temp Pulse Resp BP Pulse Ox 03/26/20 12:18 96 03/26/20 12:14 97.1 F 51 L 20 127/83 Date Exam was Performed: 03/26/20 Time Exam was Performed: 15:43 *Q Meaningful Use (ADM) - VTE Risk Assess *Q Each Risk Factor Represents 1 Point: None Total Score 1 Point Risk Factors: 0 Each Risk Factor Represents 2 Points: Malignancy (present or previous) Total Score 2 Point Risk Factors: 2 Each Risk Factor Represents 3 Points: Age 75 Years or Greater Total Score 3 Point Risk Factors: 3 Each Risk Factor Represents 5 Points: None Total Score 5 Point Risk Factors: 0 Venous Thromboembolism Risk Factor Score *Q: 5 Problem List Initiated/Reviewed/Updated: Yes Orders Last 24hrs: Active Orders 24 hr Category Date Time Status Patient Status Manage Transfer [TRANSFER] Routine ADT 03/26/20 14:16 Ordered CULTURE STOOL + SHIGATOX [RM] Stat Lab 03/26/20 13:11 Received Clostridium [CLOS DIFFICILE PCR W/REFLEX] [RM] Stat Lab 03/26/20 13:11 Received WBC, STOOL [OP] Stat Lab 03/26/20 13:11 Received Sodium Chloride 0.9% [Normal Saline] 1,000 ml Med 03/26/20 12:45 Active IV ASDIRECTED Resuscitation Status Routine Resus Stat 03/26/20 14:19 Ordered Medication Orders Sodium Chloride (Normal Saline) 1,000 mls @ 1,000 mls/hr IV ASDIRECTED [facility] Last Admin: 03/26/20 13:14 Dose: 1,000 mls/hr Assessment/Plan Comment:: ASSESSMENT AND PLAN PARTIAL SMALL BOWEL OBSTRUCTION-moderate distention of the small bowel noted on CT scan. Certainly this could explain his symptoms of nausea and vomiting. He is also had multiple watery bowel movements. -Stool studies including C. difficile pending -N.p.o. -Hold on NG tube unless he develops further nausea and vomiting -Medication for pain and nausea as needed -Protonix 40 mg IV twice daily -Follow-up abdominal x-ray in a.m. -Consult Dr. David for EGD and flexible sigmoidoscopy -IV fluids for hydration HISTORY OF RECTAL CANCER-status post surgical resection, radiation therapy, chemotherapy, and takedown of previous ileostomy. SEVERE SPINAL STENOSIS-good improvement in symptoms following recent epidural steroid injection HYPOKALEMIA -IV potassium replacement -Recheck potassium level in a.m. MAINTENANCE ISSUES -DVT prophylaxis; Lovenox 40 mg subcu daily -GI prophylaxis; Protonix as above -Peerz catheter; not indicated -Nutrition; n.p.o. -Nicotine dependence; not required CODE STATUS-FULL CODE ADMISSION STATUS-patient will be admitted to inpatient status, expect at least a 2 night hospital stay for evaluation and management of problems as outlined above. At the time of this admission I do not reasonably expected evaluation and management of this problem will require more than a 96 hour hospital stay. DISPOSITION-anticipate discharge to home after the hospital stay. PRIMARY CARE PROVIDER- - Mortality Measure Prognosis:: Good
[2020-03-26] MEDS ORDERED: Ondansetron 4 MG/2 ML SDV IV PRN (14:38)
[2020-03-26] MEDS ORDERED: CHOLESTYRAMINE PO SCH (14:38)
[2020-03-26] MEDS ORDERED: Acetaminophen/HYDROcodone 325-5 MG Tab PO PRN (14:38)
[2020-03-26] MEDS ORDERED: [UNRECOGNIZED DRUG - OTHER] PO SCH (14:38)
[2020-03-26] MEDS ORDERED: Sodium Chloride 0.9% 10 ML Syringe FLUSH PRN (14:38)
[2020-03-26] MEDS: Lactated Ringers 1,000 ML IV SCH ×2 (15:44→23:49)
[2020-03-26] MEDS ORDERED: Potassium Chloride Riders 40 MEQ in Premix Bag 1 BAG IV ONE (15:44)
[2020-03-26] MEDS: Enoxaparin 40 MG/0.4 ML Syringe SUBCUT SCH (15:47)
[2020-03-26] MEDS: Pantoprazole 40 MG Vial IVPUSH SCH (16:46)
[2020-03-26] MEDS: Potassium Chloride 20 MEQ, Lidocaine 1% 2 ML in Sodium Chloride 0.9% 100 ML IV SCH ×2 (16:49→18:29)
[2020-03-26] MEDS ORDERED: Dorzolamide 2% Ophth Soln 10 ML Bottle EYERT SCH (21:00)
[2020-03-26] MEDS: Gabapentin 300 MG Cap PO SCH (21:01)
[2020-03-26] MEDS: Dutasteride 0.5 MG Cap PO SCH (21:01)
[2020-03-26] MEDS: Dicyclomine 10 MG Cap PO SCH (21:01)
[2020-03-27] MEDS: Pantoprazole 40 MG Vial IVPUSH SCH ×2 (04:28→16:19)
[2020-03-27] MEDS ORDERED: Lactated Ringers 500 ML IV ONE (07:15)
[2020-03-27] MEDS ORDERED: Propofol 200 MG/20 ML SDV ONE (07:41)
[2020-03-27] MEDS ORDERED: fentaNYL 100 MCG/2 ML SDV ONE (07:42)
[2020-03-27] MEDS ORDERED: TIMOLOL MALEATE EYEBOTH SCH (09:00)
[2020-03-27] MEDS ORDERED: Metoprolol Succinate 25 MG Tab.ER PO SCH (09:00)
[2020-03-27] MEDS ORDERED: [UNRECOGNIZED DRUG - OTHER] EYEBOTH SCH (09:00)
[2020-03-27] MEDS: Venlafaxine 75 MG Cap.ER PO SCH (09:45)
[2020-03-27] MEDS: Gabapentin 300 MG Cap PO SCH ×2 (09:45→21:47)
[2020-03-27] MEDS: amLODIPine 5 MG Tab PO SCH (09:45)
[2020-03-27] MEDS: Tamsulosin 0.4 MG Cap.ER PO SCH (09:45)
[2020-03-27] MEDS ORDERED: Potassium Chloride 20 MEQ Tab.ER PO ONE (10:00)
[2020-03-27] MEDS ORDERED: Potassium Chloride 20 MEQ, Lidocaine 1% 2 ML in Sodium Chloride 0.9% 100 ML IV SCH (10:00)
[2020-03-27] MEDS ORDERED: Lidocaine 2% 60 ML, Alum Hydrox/Mag Hydrox/Simeth 360 ML PO PRN ×2 (10:16)
[2020-03-27] MEDS: Potassium Phos in 0.9 % NaCl 15 MMOL in Premix Bag 1 BAG IV SCH ×8 (11:43→19:34)
[2020-03-27] MEDS: Lidocaine 2% 60 ML, Alum Hydrox/Mag Hydrox/Simeth 360 ML PO SCH ×4 (11:43→16:19)
[2020-03-27] MEDS: Nystatin Susp 100,000 Unit/ML 5 ML UD Cup PO SCH ×3 (11:43→21:48)
--- NOTE | 2020-03-27 12:20 | CR ---
Abdomen 2V AP Upright Decub CLINICAL HISTORY: Possible SBO FINDINGS: No free air is identified. There are some distended loops of small bowel. Gas pattern is nonspecific. There is a calcification in the mid right abdomen. This is seen on prior CT. This in the peritoneal fat. There is gas and feces are the colon IMPRESSION: Small bowel distention appears to have improved somewhat since the CT of 03/26/2020
[2020-03-27] MEDS ORDERED: hydrALAZINE 20 MG/ML SDV IVPUSH PRN (12:49)
[2020-03-27] MEDS ORDERED: Metoprolol Succinate 25 MG Tab.ER PO ONE (13:15)
[2020-03-27] MEDS: Timolol Maleate 0.5% Ophth Soln 5 ML Bottle EYEBOTH SCH (13:47)
--- NOTE | 2020-03-27 14:57 | CONS ---
DATE OF SERVICE: 03/27/2020 REFERRING PHYSICIAN: CONSULTING PHYSICIAN: Liz Dai PA-C REASON FOR CONSULTATION: Dalton was admitted yesterday through the emergency room and surgery department was asked to consult. HISTORY: Dalton presented to the emergency room on 03/26/2020, with nausea, vomiting and diarrhea. After workup in the emergency room, it did show a partial small bowel obstruction. He had history of previous partial colon resection due to rectal carcinoma. He had radiation and chemotherapy. In October, after the takedown of ileostomy, he states he did well until approximately 3 to 4 days ago. He developed nausea, vomiting, and coffee- grounds emesis. He reports he is weak and having 5 to 6 stools a day and difficulty urinating. Dalton is n.p.o. for an EGD and flex sigmoidoscopy this morning. ALLERGIES: NO KNOWN MEDICAL ALLERGIES. HOME MEDICATIONS: See EMR. PAST MEDICAL HISTORY: HEENT; cataract, impaired vision, and borderline glaucoma. Cardiovascular, hypertension. Respiratory, history of COPD. GI, history of rectal cancer as stated above. , enlarged prostate. Musculoskeletal, arthritis and chronic back pain. Neurologic, negative. Psychiatric, history of bipolar and depression. Infectious disease, history of MRSA. PAST SURGICAL HISTORY: HEENT; cataract surgery, detached retina, and tonsillectomy. Cardiovascular, negative. Respiratory, negative. GI; as above, colon cancer with resection and ileostomy and then ileostomy reversal. Neurologic, laminectomy. Musculoskeletal, knee replacements. SOCIAL HISTORY: . Does not smoke. Caffeine use, coffee and soda. REVIEW OF SYSTEMS: CONSTITUTIONAL: Weak, fatigued, and decreased appetite. Denies any fever or chills. HEENT: Negative. LUNGS: Negative for cough. CARDIOVASCULAR: No chest pain. GI: As above. : Has frequent urination. SKIN: Negative. PSYCHIATRIC: Negative. NEUROLOGIC: Negative. Remainder of review of systems was negative. PHYSICAL EXAMINATION: GENERAL: Abdi Carey is a pleasant 84-year-old male. VITAL SIGNS: Height is 5 feet 11 inches. Weight is 176 pounds. TPR at 0709; 97.8, 87, and 18. Blood pressure 157/70. HEENT: Negative. NECK: Supple. HEART: Regular rate and rhythm. LUNGS: Clear. ABDOMEN: Soft and nontender. EXTREMITIES: Without peripheral edema. ASSESSMENT: 1. Partial small bowel obstruction. 2. History of rectal cancer. 3. Severe spinal stenosis. 4. Hypokalemia. PLAN: 1. Orders to be written after EGD and flexible sigmoidoscopy. He was given 500 mL LR bolus. 2. We will evaluate p.r.n. or in a.m. Thank you for this consultation. Liz Dai PA-C /[id number]
[2020-03-27] MEDS: Enoxaparin 40 MG/0.4 ML Syringe SUBCUT SCH (16:19)
--- NOTE | 2020-03-27 17:44 | PCM.PN ---
- General Info Date of Service: 03/27/20 Subjective Update: Mr. Carey is felt somewhat improved since admission with less pain, improvement in nausea vomiting as well as diarrhea. EGD was performed today by Dr. David and showed diffuse gastritis, suspicious for underlying fungal infection. He has been started on nystatin swish and swallow. Blood pressure is been elevated today, improved with an extra dose of metoprolol as well as 1 dose of IV hydralazine. Functional Status: Reports: Ambulating, Urinating - Review of Systems General: Reports: Weakness, Fatigue. Denies: Fever, Chills Pulmonary: Reports: No Symptoms Cardiovascular: Reports: No Symptoms Gastrointestinal: Reports: Abdominal Pain, Decreased Appetite, Diarrhea, Nausea. Denies: Difficulty Swallowing, Vomiting - Patient Data Vitals - Most Recent: Last Vital Signs Temp 96.8 F L 03/27/20 15:00 Pulse 88 03/27/20 15:00 Resp 18 03/27/20 15:00 BP 159/83 H 03/27/20 15:00 Pulse Ox 96 03/27/20 15:00 Weight - Most Recent: 176 lb I&O - Last 24 Hours: Intake & Output 03/27/20 03/27/20 03/27/20 06:59 14:59 22:59 Intake Total 1718 500 560 Output Total 300 Balance 1718 500 260 Lab Results Last 24 Hours: Laboratory Results - last 24 hr 03/27/20 03/27/20 03/27/20 Range/Units 04:05 04:05 06:50 WBC 5.1 (4.5-11.0) K/uL RBC 4.15 L (4.30-5.90) M/uL Hgb 11.4 L D (12.0-15.0) g/dL Hct 36.0 L (40.0-54.0) % MCV 87 (80-98) fL MCH 28 (27-31) pg MCHC 32 (32-36) % Plt Count 175 (150-400) K/uL Neut % (Auto) 74 H (36-66) % Lymph % (Auto) 12 L (24-44) % [place] % (Auto) 11 H (2-6) % Eos % (Auto) 2 (2-4) % Baso % (Auto) 0 (0-1) % Sodium 141 (140-148) mmol/L Potassium 3.1 L (3.6-5.2) mmol/L Chloride 105 (100-108) mmol/L Carbon Dioxide 26 (21-32) mmol/L Anion Gap 13.1 (5.0-14.0) mmol/L BUN 36 H (7-18) mg/dL Creatinine 1.0 (0.8-1.3) mg/dL Est Cr Clr Drug Dosing 60.66 mL/min Estimated GFR (MDRD) > 60 (>60) Glucose 72 L (74-106) mg/dL Calcium 8.0 L (8.5-10.1) mg/dL Phosphorus 2.4 L (2.5-4.9) mg/dL Magnesium 2.1 (1.8-2.4) mg/dL Ady Results Last 24 Hours: Microbiology 03/26/20 13:11 Stool Culture - Preliminary Stool / Feces NORMAL ENTERIC RITESH 1 DAY Shiga Toxin I - Final NEGATIVE FOR SHIGA TOXIN 1 Shiga Toxin II - Final NEGATIVE FOR SHIGA TOXIN 2 REFERENCE RANGE: NEGATIVE Clostridioides difficile (PCR) - Final 03/27/20 08:55 MENDEZ Preparation - Final Other - Throat 03/26/20 13:11 Stool for WBCs - Final Stool / Feces NO WBC SEEN REFERENCE RANGE: NO WBC SEEN Med Orders - Current: Current Medications Hydrocodone Bitart/Acetaminophen ([place] 325-5 Mg) 1 - 2 tab PO Q4H PRN PRN Reason: Pain Amlodipine Besylate (Norvasc) 5 mg PO DAILY [facility] Last Admin: 03/27/20 09:45 Dose: 5 mg Lidocaine HCl 60 ml/ Al (Hydroxide/Mg Hydroxide 360 ml) 0 ml PO TIDAC [facility] Last Admin: 03/27/20 16:19 Dose: 30 ml Lidocaine HCl 60 ml/ Al (Hydroxide/Mg Hydroxide 360 ml) 0 ml PO ASDIRECTED PRN PRN Reason: PAIN Dicyclomine HCl (Bentyl) 10 mg PO BEDTIME [facility] Last Admin: 03/26/20 21:01 Dose: 10 mg Dorzolamide HCl (Trusopt 2% Ophth Soln) 0 ml EYERT BID [facility] Dutasteride (Avodart) 0.5 mg PO BEDTIME [facility] Last Admin: 03/26/20 21:01 Dose: 0.5 mg Enoxaparin Sodium (Lovenox) 40 mg SUBCUT Q24H [facility] Last Admin: 03/27/20 16:19 Dose: 40 mg Gabapentin (Neurontin) 600 mg PO BID [facility] Last Admin: 03/27/20 09:45 Dose: 600 mg Hydralazine HCl (Apresoline) 10 mg IVPUSH Q4H PRN PRN Reason: Hypertension Potassium Phosphate 15 mmol/ (Premix) 250 mls @ 125 mls/hr IV Q2H [facility] Stop: 03/27/20 18:59 Last Admin: 03/27/20 16:37 Dose: 125 mls/hr Metoprolol Succinate (Toprol Xl) 25 mg PO DAILY [facility] Nystatin (Mycostatin) 5 ml PO QID [facility] Last Admin: 03/27/20 16:19 Dose: 5 ml Ondansetron HCl (Zofran) 4 mg IV Q4H PRN PRN Reason: Nausea/Vomiting Pantoprazole Sodium (Protonix Iv) 40 mg IVPUSH Q12H [facility] Last Admin: 03/27/20 16:19 Dose: 40 mg Sodium Chloride (Saline Flush) 10 ml FLUSH ASDIRECTED PRN PRN Reason: Keep Vein Open Tamsulosin HCl (Flomax) 0.4 mg PO DAILY [facility] Last Admin: 03/27/20 09:45 Dose: 0.4 mg Timolol Maleate (Timoptic 0.5% Ophth Soln) 0 ml EYEBOTH DAILY [facility] Last Admin: 03/27/20 13:47 Dose: 1 drop Venlafaxine HCl (Effexor Xr) 225 mg PO DAILY [facility] Last Admin: 03/27/20 09:45 Dose: 225 mg Discontinued Medications Dorzolamide HCl (Trusopt 2% Ophth Soln) ml EYERT BID [facility] Fentanyl (Sublimaze) Confirm Administered Dose 100 mcg .ROUTE .STK-MED ONE Stop: 03/27/20 07:43 Sodium Chloride (Normal Saline) 1,000 mls @ 1,000 mls/hr IV ASDIRECTED [facility] Last Admin: 03/26/20 13:14 Dose: 1,000 mls/hr Lactated Ringer's (Ringers, Lactated) 1,000 mls @ 125 mls/hr IV ASDIRECTED [facility] Last Admin: 03/26/20 23:49 Dose: 125 mls/hr Potassium Chloride 20 meq/Lidocaine HCl 2 ml/ Sodium Chloride 112 mls @ 56 mls/ hr IV Q2H [facility] Stop: 03/26/20 20:29 Last Admin: 03/26/20 18:29 Dose: 56 mls/hr Lactated Ringer's (Ringers, Lactated) 500 mls @ 500 mls/hr IV BOLUS ONE Stop: 03/27/20 08:14 Last Admin: 03/27/20 07:05 Dose: 500 mls/hr Metoprolol Succinate (Toprol Xl) 12.5 mg PO DAILY [facility] Last Admin: 03/27/20 09:45 Dose: 12.5 mg Metoprolol Succinate (Toprol Xl) 12.5 mg PO ONETIME ONE Stop: 03/27/20 13:16 Last Admin: 03/27/20 13:46 Dose: 12.5 mg Non-Formulary Medication (Cholestyramine (With Sugar) [Cholestyramine Powder]) 26 mg PO ASDIRECTED [facility] Non-Formulary Medication (Timolol Maleate/Pf [Timoptic 0.5% Ocudose Drop]) 1 drop EYEBOTH DAILY [facility] Last Admin: 03/27/20 12:59 Dose: Not Given Propofol (Diprivan 20 Ml) Confirm Administered Dose 200 mg .ROUTE .STK-MED ONE Stop: 03/27/20 07:42 - Exam Quality Assessment: DVT Prophylaxis General: Alert, Oriented, Cooperative, Moderate Distress Lungs: Clear to Auscultation, Normal Respiratory Effort Cardiovascular: Regular Rate, Regular Rhythm, No Murmurs GI/Abdominal Exam: Soft, No Organomegaly, Distended, Tender. No: Guarding, Rigid, Rebound Extremities: Non-Tender, No Pedal Edema Sepsis Event Note - Evaluation Sepsis Screening Result: No Definite Risk - Focused Exam Vital Signs: Vital Signs Temp Pulse Pulse Resp BP BP Pulse Ox 03/27/20 15:00 96.8 F L 88 18 159/83 H 96 03/27/20 13:46 93 170/93 H 03/27/20 11:35 95.2 F L 100 16 97 03/27/20 11:34 212/103 H 03/27/20 11:33 170/110 H 03/27/20 11:15 192/91 H 03/27/20 10:45 197/89 H 03/27/20 10:30 203/93 H 03/27/20 10:15 200/83 H 03/27/20 09:45 95 189/107 H 03/27/20 09:42 96.8 F L 92 16 165/105 H 92 L 03/27/20 09:17 96.8 F L 95 16 169/70 H 91 L 03/27/20 09:05 16 160/82 H 99 03/27/20 09:00 16 164/84 H 99 03/27/20 08:55 15 161/85 H 98 03/27/20 08:50 15 171/91 H 100 03/27/20 08:45 97.8 F 14 194/105 H 100 03/27/20 07:09 97.8 F 87 18 157/70 H 94 L Date Exam was Performed: 03/27/20 Time Exam was Performed: 17:39 - Problem List Review Problem List Initiated/Reviewed/Updated: Yes - My Orders Last 24 Hours: My Active Orders 03/26/20 21:00 Dicyclomine [Bentyl] 10 mg PO BEDTIME Dutasteride [Avodart] 0.5 mg PO BEDTIME Gabapentin [Neurontin] 600 mg PO BID 03/27/20 08:00 Enema [RC] ASDIRECTED 03/27/20 09:00 Tamsulosin [Flomax] 0.4 mg PO DAILY Venlafaxine [Effexor XR] 225 mg PO DAILY amLODIPine [Norvasc] 5 mg PO DAILY 03/27/20 12:49 hydrALAZINE [Apresoline] 10 mg IVPUSH Q4H PRN 03/27/20 12:53 Convert IV to Saline Lock [OM.PC] Routine 03/27/20 14:00 timoloL maleate [Timoptic 0.5% Ophth Soln] 0 ml EYEBOTH DAILY 03/27/20 21:00 Dorzolamide [Trusopt 2% Ophth Soln] 0 ml EYERT BID 03/28/20 09:00 Metoprolol Succinate [Toprol XL] 25 mg PO DAILY - Plan Plan:: ASSESSMENT AND PLAN SEVERE ESOPHAGITIS/RECTAL STRICTURE-likely cause of his recent symptoms. EGD today showed evidence of severe esophagitis, flexible sigmoidoscopy showed evidence of stricture at the anastomosis, which was dilated at the time of the procedure. -Full liquid diet -Medication for pain and nausea as needed -Protonix 40 mg IV twice daily -Surgical follow-up per Dr. David -Saline lock IV -Nystatin swish and swallow as ordered by Dr. David HISTORY OF RECTAL CANCER-status post surgical resection, radiation therapy, chemotherapy, and takedown of previous ileostomy. SEVERE SPINAL STENOSIS-good improvement in symptoms following recent epidural steroid injection HYPOKALEMIA -IV potassium replacement -Recheck potassium level in a.m. MAINTENANCE ISSUES -DVT prophylaxis; Lovenox 40 mg subcu daily -GI prophylaxis; Protonix as above -Perez catheter; not indicated -Nutrition; n.p.o. -Nicotine dependence; not required CODE STATUS-FULL CODE ADMISSION STATUS-patient will be admitted to inpatient status, expect at least a 2 night hospital stay for evaluation and management of problems as outlined above. At the time of this admission I do not reasonably expected evaluation and management of this problem will require more than a 96 hour hospital stay. DISPOSITION-anticipate discharge to home after the hospital stay. PRIMARY CARE PROVIDER-
[2020-03-27] MEDS: Dutasteride 0.5 MG Cap PO SCH (21:47)
[2020-03-27] MEDS: Dicyclomine 10 MG Cap PO SCH (21:48)
[2020-03-27] MEDS: Dorzolamide 2% Ophth Soln 10 ML Bottle EYERT SCH (21:48)
[2020-03-28] MEDS: Pantoprazole 40 MG Vial IVPUSH SCH ×2 (03:44→16:34)
[2020-03-28] MEDS: Nystatin Susp 100,000 Unit/ML 5 ML UD Cup PO SCH ×4 (05:04→21:10)
[2020-03-28] MEDS: Lidocaine 2% 60 ML, Alum Hydrox/Mag Hydrox/Simeth 360 ML PO SCH ×6 (07:24→16:27)
[2020-03-28] MEDS ORDERED: Potassium Chloride 20 MEQ Tab.ER PO ONE ×2 (08:00→17:00)
[2020-03-28] MEDS ORDERED: Metoprolol Succinate 25 MG Tab.ER PO SCH (09:00)
--- NOTE | 2020-03-28 09:06 | PN ---
DATE OF SERVICE: 03/28/2020 SUBJECTIVE: Abdi had an esophagogastroduodenoscopy and a flexible sigmoidoscopy yesterday. He continues to have frequency and urgency, feeling like he has to have a bowel movement. Has been up during the night. Vital signs stable, afebrile. Oral intake 1660, and he has had 3 bowel movements and several voids. REVIEW OF SYSTEMS: Remainder of review of systems negative for any pertinent positives and negatives. OBJECTIVE: GENERAL: Abdi is a pleasant 84-year-old male. He is alert and orientated. VITAL SIGNS: TPR at 0700, 95.6; 78; 16; blood pressure 161/70. HEENT: Negative. NECK: Supple. HEART: Regular rate and rhythm. LUNGS: Clear. ABDOMEN: Soft, nontender. EXTREMITIES: Without peripheral edema. ASSESSMENT: 1. Esophagogastroduodenoscopy: a. Collection of esophageal contents for fungal stain and culture. b. Biopsy of antrum and CLOtest. 2. Flexible sigmoidoscopy with dilation of the [employer]VENUE [employer]ERK (45 Japanese). POSTOPERATIVE DIAGNOSES: 1. 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 2. Diffuse gastritis. 3. 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 4. Date: 03/27/2020. Surgeon: Sanchez David MD. PLAN: 1. He will need a flexible sigmoidoscopy in 1 month with Sanchez David MD. 2. We will continue same treatment and medications. 3. We will evaluate p.r.nJay Dai PA-C /[id number]
--- NOTE | 2020-03-28 09:11 | CR ---
Abdomen 2V AP Flat Upright CLINICAL HISTORY: Ileus FINDINGS: No free air is identified. There are some scattered air-fluid levels in colon and small bowel. Distention is decreased since prior study IMPRESSION: Decreasing small bowel distention
[2020-03-28] MEDS: Venlafaxine 75 MG Cap.ER PO SCH (09:49)
[2020-03-28] MEDS: Gabapentin 300 MG Cap PO SCH ×2 (09:50→20:23)
[2020-03-28] MEDS: amLODIPine 5 MG Tab PO SCH (09:50)
[2020-03-28] MEDS: Tamsulosin 0.4 MG Cap.ER PO SCH (09:50)
[2020-03-28] MEDS: Dorzolamide 2% Ophth Soln 10 ML Bottle EYERT SCH ×2 (09:51→20:24)
[2020-03-28] MEDS: Timolol Maleate 0.5% Ophth Soln 5 ML Bottle EYEBOTH SCH (09:55)
[2020-03-28] MEDS: Atropine/Diphenoxylate 0.025-2.5 MG Tab PO PRN ×2 (12:34→20:23)
--- NOTE | 2020-03-28 14:22 | PN ---
DATE OF SERVICE: 03/27/2020 The patient has been afebrile with stable vital signs overnight. Has not made a lot of urine, and we did give him an extra 500 LR bolus this morning, and he otherwise did have IV rate at 125. The creatinine is down from 1.3 to 1.0 overnight. Otherwise, at this time an upper endoscopy was noted to have a severe esophagitis with esophagus being covered with a large area of fibrinous type material and also suspicious for fungal overgrowth. We did obtain some of the esophageal contents and sent for fungal stain, and we will empirically just start him on some Mycostatin swish and swallow. He had not been on Protonix at home prior to admission yesterday, and he is on Protonix 40 mg q.[address] Velazquez presently. Otherwise, the patient was also noted to have a stricture at his colorectal anastomosis. There was a ball-valve type affect of the normal mucosa intermittently obstructing that area and this was successfully dilated to 45-Telugu with a visible improvement in the lumen. Prior to that, the colonoscope could not be passed through the stricture and after that it easily did pass. There seemed to be less propensity to have the ball-valve effect of the nonirrigated mucosa above the anastomosis, coming into the anastomosis. Otherwise, his potassium and phosphate are low, we will just supplement an IV today. His abdominal x-ray looks fairly unremarkable, and we will just recheck another abdominal x-ray, flat and upright, in the morning and begin with some full liquid diet and have pharmacy mix 2 ounces of Xylocaine with 12 ounces of Mylanta and to take prior to meals. I feel he has not had a lot of urine output thus far. We will check a postvoid residual to make sure he is not retaining urine. Sanchez David MD /[id number]
--- NOTE | 2020-03-28 15:52 | PCM.PN ---
- General Info Date of Service: 03/28/20 Subjective Update: Mr. Carey shown further improvement over the last 24 hours, oral intake has improved. He continues to experience some loose stools. Nausea and vomiting have resolved and pain has also improved. Blood pressure still mildly elevated but decreased from yesterday. Functional Status: Reports: Tolerating Diet, Ambulating, Urinating - Review of Systems General: Reports: Weakness. Denies: Fever, Chills Pulmonary: Reports: No Symptoms Cardiovascular: Reports: No Symptoms Gastrointestinal: Reports: Diarrhea. Denies: Abdominal Pain, Nausea, Vomiting - Patient Data Vitals - Most Recent: Last Vital Signs Temp 95.5 F L 03/28/20 10:42 Pulse 72 03/28/20 10:42 Resp 16 03/28/20 10:42 BP 145/75 H 03/28/20 10:42 Pulse Ox 100 03/28/20 10:42 Weight - Most Recent: 171 lb I&O - Last 24 Hours: Intake & Output 03/28/20 03/28/20 03/28/20 06:59 14:59 22:59 Intake Total 300 860 Output Total 275 300 Balance 25 560 Lab Results Last 24 Hours: Laboratory Results - last 24 hr 03/28/20 03/28/20 Range/Units 04:00 04:00 WBC 4.7 (4.5-11.0) K/uL RBC 4.14 L (4.30-5.90) M/uL Hgb 11.3 L (12.0-15.0) g/dL Hct 35.7 L (40.0-54.0) % MCV 86 (80-98) fL MCH 27 (27-31) pg MCHC 32 (32-36) % Plt Count 176 (150-400) K/uL Sodium 141 (140-148) mmol/L Potassium 3.4 L (3.6-5.2) mmol/L Chloride 106 (100-108) mmol/L Carbon Dioxide 27 (21-32) mmol/L Anion Gap 11.4 (5.0-14.0) mmol/L BUN 14 D (7-18) mg/dL Creatinine 0.7 L (0.8-1.3) mg/dL Est Cr Clr Drug Dosing 86.65 mL/min Estimated GFR (MDRD) > 60 (>60) Glucose 93 (74-106) mg/dL Calcium 7.8 L (8.5-10.1) mg/dL Phosphorus 2.5 (2.5-4.9) mg/dL Magnesium 1.8 (1.8-2.4) mg/dL Total Bilirubin 0.2 D (0.2-1.0) mg/dL AST 11 L (15-37) U/L ALT 19 (12-78) U/L Alkaline Phosphatase 67 (46-116) U/L Total Protein 5.1 L (6.4-8.2) g/dL Albumin 2.6 L (3.4-5.0) g/dL Globulin 2.5 (2.3-3.5) g/dL Albumin/Globulin Ratio 1.0 L (1.2-2.2) Ady Results Last 24 Hours: Microbiology 03/27/20 08:35 CLOtest - Final Stomach NEGATIVE CLOTEST REFERENCE RANGE: NEGATIVE 03/26/20 13:11 Stool Culture - Preliminary Stool / Feces NORMAL ENTERIC RITESH 2 DAYS Shiga Toxin I - Final NEGATIVE FOR SHIGA TOXIN 1 Shiga Toxin II - Final NEGATIVE FOR SHIGA TOXIN 2 REFERENCE RANGE: NEGATIVE Clostridioides difficile (PCR) - Final Med Orders - Current: Current Medications Hydrocodone Bitart/Acetaminophen ([place] 325-5 Mg) 1 - 2 tab PO Q4H PRN PRN Reason: Pain Amlodipine Besylate (Norvasc) 5 mg PO DAILY [facility] Last Admin: 03/28/20 09:50 Dose: 5 mg Colestipol HCl (Colestipol Hcl) 2 gm PO BID@1000,2200 [facility] Last Admin: 03/28/20 12:29 Dose: 2 gm Lidocaine HCl 60 ml/ Al (Hydroxide/Mg Hydroxide 360 ml) 0 ml PO TIDAC [facility] Last Admin: 03/28/20 12:30 Dose: 30 ml Lidocaine HCl 60 ml/ Al (Hydroxide/Mg Hydroxide 360 ml) 0 ml PO ASDIRECTED PRN PRN Reason: PAIN Dicyclomine HCl (Bentyl) 10 mg PO BEDTIME [facility] Last Admin: 03/27/20 21:48 Dose: 10 mg Diphenoxylate HCl/Atropine (Lomotil 0.025-2.5 Mg) 1 tab PO QID PRN PRN Reason: Diarrhea Last Admin: 03/28/20 12:34 Dose: 1 tab Dorzolamide HCl (Trusopt 2% Ophth Soln) 0 ml EYERT BID [facility] Last Admin: 03/28/20 09:51 Dose: 1 drop Dutasteride (Avodart) 0.5 mg PO BEDTIME [facility] Last Admin: 03/27/20 21:47 Dose: 0.5 mg Enoxaparin Sodium (Lovenox) 40 mg SUBCUT Q24H [facility] Last Admin: 03/27/20 16:19 Dose: 40 mg Gabapentin (Neurontin) 600 mg PO BID [facility] Last Admin: 03/28/20 09:50 Dose: 600 mg Hydralazine HCl (Apresoline) 10 mg IVPUSH Q4H PRN PRN Reason: Hypertension Metoprolol Succinate (Toprol Xl) 25 mg PO DAILY [facility] Last Admin: 03/28/20 09:51 Dose: 25 mg Nystatin (Mycostatin) 5 ml PO QID [facility] Last Admin: 03/28/20 09:51 Dose: 5 ml Ondansetron HCl (Zofran) 4 mg IV Q4H PRN PRN Reason: Nausea/Vomiting Pantoprazole Sodium (Protonix Iv) 40 mg IVPUSH Q12H [facility] Last Admin: 03/28/20 03:44 Dose: 40 mg Potassium Chloride (Klor-Con M20) 40 meq PO ONETIME ONE Stop: 03/28/20 17:01 Sodium Chloride (Saline Flush) 10 ml FLUSH ASDIRECTED PRN PRN Reason: Keep Vein Open Tamsulosin HCl (Flomax) 0.4 mg PO DAILY [facility] Last Admin: 03/28/20 09:50 Dose: 0.4 mg Timolol Maleate (Timoptic 0.5% Ophth Soln) 0 ml EYEBOTH DAILY [facility] Last Admin: 03/28/20 09:55 Dose: Not Given Venlafaxine HCl (Effexor Xr) 225 mg PO DAILY [facility] Last Admin: 03/28/20 09:49 Dose: 225 mg Discontinued Medications Dorzolamide HCl (Trusopt 2% Ophth Soln) ml EYERT BID [facility] Fentanyl (Sublimaze) Confirm Administered Dose 100 mcg .ROUTE .STK-MED ONE Stop: 03/27/20 07:43 Sodium Chloride (Normal Saline) 1,000 mls @ 1,000 mls/hr IV ASDIRECTED [facility] Last Admin: 03/26/20 13:14 Dose: 1,000 mls/hr Lactated Ringer's (Ringers, Lactated) 1,000 mls @ 125 mls/hr IV ASDIRECTED [facility] Last Admin: 03/26/20 23:49 Dose: 125 mls/hr Potassium Chloride 20 meq/Lidocaine HCl 2 ml/ Sodium Chloride 112 mls @ 56 mls/ hr IV Q2H [facility] Stop: 03/26/20 20:29 Last Admin: 03/26/20 18:29 Dose: 56 mls/hr Lactated Ringer's (Ringers, Lactated) 500 mls @ 500 mls/hr IV BOLUS ONE Stop: 03/27/20 08:14 Last Admin: 03/27/20 07:05 Dose: 500 mls/hr Potassium Phosphate 15 mmol/ (Premix) 250 mls @ 125 mls/hr IV Q2H [facility] Stop: 03/27/20 18:59 Last Admin: 03/27/20 19:34 Dose: 125 mls/hr Metoprolol Succinate (Toprol Xl) 12.5 mg PO DAILY [facility] Last Admin: 03/27/20 09:45 Dose: 12.5 mg Metoprolol Succinate (Toprol Xl) 12.5 mg PO ONETIME ONE Stop: 03/27/20 13:16 Last Admin: 03/27/20 13:46 Dose: 12.5 mg Non-Formulary Medication (Cholestyramine (With Sugar) [Cholestyramine Powder]) 26 mg PO ASDIRECTED [facility] Non-Formulary Medication (Timolol Maleate/Pf [Timoptic 0.5% Ocudose Drop]) 1 drop EYEBOTH DAILY [facility] Last Admin: 03/27/20 12:59 Dose: Not Given Potassium Chloride (Klor-Con M20) 40 meq PO ONETIME ONE Stop: 03/28/20 08:01 Last Admin: 03/28/20 09:57 Dose: 40 meq Propofol (Diprivan 20 Ml) Confirm Administered Dose 200 mg .ROUTE .STK-MED ONE Stop: 03/27/20 07:42 - Exam Quality Assessment: DVT Prophylaxis General: Alert, Oriented, Cooperative, Mild Distress Lungs: Clear to Auscultation, Normal Respiratory Effort Cardiovascular: Regular Rate, Regular Rhythm, No Murmurs GI/Abdominal Exam: Soft, Non-Tender, No Organomegaly, No Distention Extremities: Non-Tender, No Pedal Edema Sepsis Event Note - Evaluation Sepsis Screening Result: No Definite Risk - Focused Exam Vital Signs: Vital Signs Temp Pulse Pulse Resp BP BP Pulse Ox 03/28/20 10:42 95.5 F L 72 16 145/75 H 100 03/28/20 09:51 80 161/70 H 03/28/20 09:50 161/70 H 03/28/20 07:00 95.6 F L 78 16 161/70 H 97 Date Exam was Performed: 03/28/20 Time Exam was Performed: 15:45 - Problem List Review Problem List Initiated/Reviewed/Updated: Yes - My Orders Last 24 Hours: My Active Orders 03/27/20 21:00 Dorzolamide [Trusopt 2% Ophth Soln] 0 ml EYERT BID 03/28/20 09:00 Metoprolol Succinate [Toprol XL] 25 mg PO DAILY 03/28/20 12:00 Colestipol [Colestipol HCl] 2 gm PO BID@1000,2200 03/28/20 12:18 PT Evaluation and Treatment [CONS] Routine Atropine/Diphenoxylate [Lomotil 0.025-2.5 MG] 1 tab PO QID PRN 03/28/20 17:00 Potassium Chloride [Klor-Con M20] 40 meq PO ONETIME ONE 03/28/20 Lunch Soft Diet [DIET] - Plan Plan:: ASSESSMENT AND PLAN SEVERE ESOPHAGITIS/RECTAL STRICTURE-likely cause of his recent symptoms. EGD showed evidence of severe esophagitis, flexible sigmoidoscopy showed evidence of stricture at the anastomosis, which was dilated at the time of the procedure. Today, currently tolerating diet, less pain and no nausea or vomiting. Continues to have loose stools -Soft low residue diet -Medication for pain and nausea as needed -Protonix 40 mg po twice daily -Surgical follow-up per Dr. David -Saline lock IV -Nystatin swish and swallow as ordered by Dr. David -Viscous lidocaine prior to meals HISTORY OF RECTAL CANCER-status post surgical resection, radiation therapy, chemotherapy, and takedown of previous ileostomy. SEVERE SPINAL STENOSIS-good improvement in symptoms following recent epidural steroid injection HYPOKALEMIA -IV potassium replacement -Recheck potassium level in a.m. MAINTENANCE ISSUES -DVT prophylaxis; Lovenox 40 mg subcu daily -GI prophylaxis; Protonix as above -Perez catheter; not indicated -Nutrition; n.p.o. -Nicotine dependence; not required CODE STATUS-FULL CODE ADMISSION STATUS-patient will be admitted to inpatient status, expect at least a 2 night hospital stay for evaluation and management of problems as outlined above. At the time of this admission I do not reasonably expected evaluation and management of this problem will require more than a 96 hour hospital stay. DISPOSITION-anticipate discharge to home after the hospital stay. PRIMARY CARE PROVIDER-
--- NOTE | 2020-03-28 16:25 | PCM.DCSUM1 ---
Discharge Summary - Hospital Course Brief History: Mr. Carey is an 84-year-old gentleman who was admitted through the emergency department for further evaluation of epigastric pain, nausea vomiting, and diarrhea with weakness. - Discharge Data Discharge Date: 03/28/20 Discharge Disposition: Home, Self-Care 01 Condition: Fair - Referral to Home Health Primary Care Physician: PCP None - Discharge Diagnosis/Problem(s) (1) Hypertension SNOMED Code(s): 84928693 ICD Code: I10 - ESSENTIAL (PRIMARY) HYPERTENSION Status: Acute Current Visit: Yes (2) Esophagitis SNOMED Code(s): 36635730 ICD Code: K20.9 - ESOPHAGITIS, UNSPECIFIED Status: Acute Current Visit: Yes (3) Stricture of rectum SNOMED Code(s): 93152031 ICD Code: K62.4 - STENOSIS OF ANUS AND RECTUM Status: Acute Current Visit : Yes (4) Dehydration SNOMED Code(s): 39274963 ICD Code: E86.0 - DEHYDRATION Status: Acute Current Visit: Yes (5) Nausea & vomiting SNOMED Code(s): 53521385 ICD Code: R11.2 - NAUSEA WITH VOMITING, UNSPECIFIED Status: Acute Current Visit: Yes Qualifiers: Vomiting type: unspecified Vomiting Intractability: non-intractable Qualified Code(s): R11.2 - Nausea with vomiting, unspecified - Patient Summary/Data Consults: Consultations 03/26/20 14:38 Consult to Physician [CONS] Routine Consulting Provider: Sanchez David Call Completed to Consulting Physician: Yes Reason for Consult: Partial SBO 03/28/20 12:18 PT Evaluation and Treatment [CONS] Routine Please Evaluate and Treat. PT Reason for Consult: weakness This query below is only for informational purposes and is not editable. Admission Diagnosis/Problem: Small bowel obstruction Hospital Course: Mr. Carey is an 84-year-old gentleman who was admitted through the emergency department with nausea, vomiting, and diarrhea secondary to partial small bowel obstruction. 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 In October of this past year he did undergo takedown of his ileostomy. Since then he has had ongoing difficulty with bowel movements, feeling as though he has to go and then having an uncontrolled bowel movement. Over the past several weeks he has had difficulty with his severe spinal stenosis and is status post epidural steroid injection done approximately 3 weeks ago. This did result in good pain control from the spinal stenosis. Over the last 4 days he has had nausea and vomiting, when it started he was noted to have coffee-ground appearing emesis. Today he is more weak and has had multiple watery bowel movements. Evaluation in the emergency department, white blood cell count is mildly elevated. Other labs are unremarkable. CT scan of the abdomen pelvis shows evidence of possible partial small bowel obstruction. On admission he was kept n.p.o. and received IV fluids for hydration as well as medication for nausea and pain. He was seen the following morning by Dr. David, EGD was performed which showed evidence of severe erosive esophagitis and possible fungal overgrowth. Flexible sigmoidoscopy was performed and showed a stricture at the ileal colonic anastomosis. This area was dilated at the time of the procedure. He was continued on IV Protonix, viscous lidocaine and nystatin swish and swallow were added. MENDEZ stain for fungal elements was negative, culture for fungi is pending at the time of discharge. On the day after admission he did have elevated blood pressures. This was managed with an additional dose of his usual metoprolol as well as 1 dose of hydralazine. At the time of discharge metoprolol will be increased to 25 mg daily. By the time of discharge he was tolerating a soft diet, but continued to have loose stools. He was started on Lomotil as needed and this will be continued after discharge. Protonix viscous lidocaine and nystatin will also be continued after discharge. He should take the Protonix twice daily for 2 weeks and then once daily thereafter. Aloe up flexible sigmoidoscopy will be scheduled with Dr. David in 1 month. Follow-up appointment with primary care provider should be scheduled within 1 month. Activity will be as tolerated and he will be on a soft low residue diet. - Patient Instructions Diet: GI Soft/Low Residue/Low Fiber Activity: As Tolerated Other/Special Instructions: Please schedule follow-up flexible sigmoidoscopy with Dr. David in 1 month. Please schedule follow-up appointment with primary care provider within 1 month. - Discharge Plan *PRESCRIPTION DRUG MONITORING PROGRAM REVIEWED*: Not Applicable *COPY OF PRESCRIPTION DRUG MONITORING REPORT IN PATIENT HILARY: Not Applicable Prescriptions/Med Rec: Diphenoxylate HCl/Atropine [Lomotil Tablet] 1 each PO QID PRN #60 tablet PRN Reason: Diarrhea Lidocaine 2% [Xylocaine 2% Viscous] 30 ml PO TIDAC PRN #600 ml PRN Reason: Pain Nystatin [Mycostatin] 5 ml PO QID #200 ml Pantoprazole [ProTONIX] 40 mg PO BIDAC #30 tab.cr Home Medications: Home Meds Dutasteride [Avodart] 0.5 mg PO BEDTIME 08/08/16 [History] Timolol Maleate/PF [Timoptic 0.5% Ocudose Drop] 1 drop EYEBOTH DAILY 08/08/16 [ History] Venlafaxine [Effexor XR] 225 mg PO DAILY 08/08/16 [History] Metoprolol Succinate [Toprol XL] 12.5 mg PO DAILY 03/29/19 [History] amLODIPine [Norvasc] 5 mg PO DAILY 03/29/19 [History] Dorzolamide [Trusopt 2% Ophth Soln] 1 drop EYERT BID 08/04/19 [History] Acetaminophen [Tylenol Extra Strength] 500 mg PO BID 08/24/19 [History] Loperamide [Imodium] 4 mg PO TID 10/24/19 [History] Acetaminophen/HYDROcodone [[place] 325-5 MG] 1 - 2 tab PO Q6H PRN #7 tab 02/21/20 [Rx] Dicyclomine [Bentyl] 10 mg PO BEDTIME 02/21/20 [History] Gabapentin [Neurontin] 600 mg PO BID 02/21/20 [History] Tamsulosin HCl [Flomax] 0.4 mg PO DAILY 02/21/20 [History] traMADol [Ultram] 50 mg PO Q6H PRN 02/21/20 [History] Colestipol [Colestipol HCl] 2 g PO BID 03/27/20 [History] Alum Hydrox/Mag Hydrox/Simeth [Mag-Al Plus] 360 ml PO TIDAC PRN cup 03/28/20 [ Rx] Diphenoxylate HCl/Atropine [Lomotil Tablet] 1 each PO QID PRN #60 tablet [Rx] Lidocaine 2% [Xylocaine 2% Viscous] 30 ml PO TIDAC PRN #600 ml 03/28/20 [Rx] Metoprolol Succinate [Toprol XL] 25 mg PO DAILY tab.er 03/28/20 [Rx] Nystatin [Mycostatin] 5 ml PO QID #200 ml 03/28/20 [Rx] Pantoprazole [ProTONIX] 40 mg PO BIDAC #30 tab.cr 03/28/20 [Rx] Referrals: Aime Sesay MD [Physician] - Sanchez David MD [Physician] - (follow up next week) - Discharge Summary/Plan Comment DC Time >30 min.: No - Patient Data Vitals - Most Recent: Last Vital Signs Temp 205.7 F H 03/28/20 15:00 Pulse 81 03/28/20 15:00 Resp 18 03/28/20 15:00 BP 142/73 H 03/28/20 15:00 Pulse Ox 98 03/28/20 15:00 Weight - Most Recent: 171 lb I&O - Last 24 hours: Intake & Output 03/28/20 03/28/20 03/28/20 06:59 14:59 22:59 Intake Total 300 860 Output Total 275 300 Balance 25 560 Lab Results - Last 24 hrs: Laboratory Results - last 24 hr 03/28/20 03/28/20 Range/Units 04:00 04:00 WBC 4.7 (4.5-11.0) K/uL RBC 4.14 L (4.30-5.90) M/uL Hgb 11.3 L (12.0-15.0) g/dL Hct 35.7 L (40.0-54.0) % MCV 86 (80-98) fL MCH 27 (27-31) pg MCHC 32 (32-36) % Plt Count 176 (150-400) K/uL Sodium 141 (140-148) mmol/L Potassium 3.4 L (3.6-5.2) mmol/L Chloride 106 (100-108) mmol/L Carbon Dioxide 27 (21-32) mmol/L Anion Gap 11.4 (5.0-14.0) mmol/L BUN 14 D (7-18) mg/dL Creatinine 0.7 L (0.8-1.3) mg/dL Est Cr Clr Drug Dosing 86.65 mL/min Estimated GFR (MDRD) > 60 (>60) Glucose 93 (74-106) mg/dL Calcium 7.8 L (8.5-10.1) mg/dL Phosphorus 2.5 (2.5-4.9) mg/dL Magnesium 1.8 (1.8-2.4) mg/dL Total Bilirubin 0.2 D (0.2-1.0) mg/dL AST 11 L (15-37) U/L ALT 19 (12-78) U/L Alkaline Phosphatase 67 (46-116) U/L Total Protein 5.1 L (6.4-8.2) g/dL Albumin 2.6 L (3.4-5.0) g/dL Globulin 2.5 (2.3-3.5) g/dL Albumin/Globulin Ratio 1.0 L (1.2-2.2) WALTER Results - Last 24 hrs: Microbiology 03/27/20 08:35 CLOtest - Final Stomach NEGATIVE CLOTEST REFERENCE RANGE: NEGATIVE 03/26/20 13:11 Stool Culture - Preliminary Stool / Feces NORMAL ENTERIC RITESH 2 DAYS Shiga Toxin I - Final NEGATIVE FOR SHIGA TOXIN 1 Shiga Toxin II - Final NEGATIVE FOR SHIGA TOXIN 2 REFERENCE RANGE: NEGATIVE Clostridioides difficile (PCR) - Final Med Orders - Current: Current Medications Hydrocodone Bitart/Acetaminophen ([place] 325-5 Mg) 1 - 2 tab PO Q4H PRN PRN Reason: Pain Amlodipine Besylate (Norvasc) 5 mg PO DAILY [facility] Last Admin: 03/28/20 09:50 Dose: 5 mg Colestipol HCl (Colestipol Hcl) 2 gm PO BID@1000,2200 [facility] Last Admin: 03/28/20 12:29 Dose: 2 gm Lidocaine HCl 60 ml/ Al (Hydroxide/Mg Hydroxide 360 ml) 0 ml PO TIDAC [facility] Last Admin: 03/28/20 12:30 Dose: 30 ml Lidocaine HCl 60 ml/ Al (Hydroxide/Mg Hydroxide 360 ml) 0 ml PO ASDIRECTED PRN PRN Reason: PAIN Dicyclomine HCl (Bentyl) 10 mg PO BEDTIME [facility] Last Admin: 03/27/20 21:48 Dose: 10 mg Diphenoxylate HCl/Atropine (Lomotil 0.025-2.5 Mg) 1 tab PO QID PRN PRN Reason: Diarrhea Last Admin: 03/28/20 12:34 Dose: 1 tab Dorzolamide HCl (Trusopt 2% Ophth Soln) 0 ml EYERT BID [facility] Last Admin: 03/28/20 09:51 Dose: 1 drop Dutasteride (Avodart) 0.5 mg PO BEDTIME [facility] Last Admin: 03/27/20 21:47 Dose: 0.5 mg Enoxaparin Sodium (Lovenox) 40 mg SUBCUT Q24H [facility] Last Admin: 03/27/20 16:19 Dose: 40 mg Gabapentin (Neurontin) 600 mg PO BID [facility] Last Admin: 03/28/20 09:50 Dose: 600 mg Hydralazine HCl (Apresoline) 10 mg IVPUSH Q4H PRN PRN Reason: Hypertension Metoprolol Succinate (Toprol Xl) 25 mg PO DAILY [facility] Last Admin: 03/28/20 09:51 Dose: 25 mg Nystatin (Mycostatin) 5 ml PO QID [facility] Last Admin: 03/28/20 09:51 Dose: 5 ml Ondansetron HCl (Zofran) 4 mg IV Q4H PRN PRN Reason: Nausea/Vomiting Pantoprazole Sodium (Protonix) 40 mg PO BIDAC [facility] Potassium Chloride (Klor-Con M20) 40 meq PO ONETIME ONE Stop: 03/28/20 17:01 Sodium Chloride (Saline Flush) 10 ml FLUSH ASDIRECTED PRN PRN Reason: Keep Vein Open Tamsulosin HCl (Flomax) 0.4 mg PO DAILY [facility] Last Admin: 03/28/20 09:50 Dose: 0.4 mg Timolol Maleate (Timoptic 0.5% Ophth Soln) 0 ml EYEBOTH DAILY [facility] Last Admin: 03/28/20 09:55 Dose: Not Given Venlafaxine HCl (Effexor Xr) 225 mg PO DAILY [facility] Last Admin: 03/28/20 09:49 Dose: 225 mg Discontinued Medications Dorzolamide HCl (Trusopt 2% Ophth Soln) ml EYERT BID [facility] Fentanyl (Sublimaze) Confirm Administered Dose 100 mcg .ROUTE .STK-MED ONE Stop: 03/27/20 07:43 Sodium Chloride (Normal Saline) 1,000 mls @ 1,000 mls/hr IV ASDIRECTED [facility] Last Admin: 03/26/20 13:14 Dose: 1,000 mls/hr Lactated Ringer's (Ringers, Lactated) 1,000 mls @ 125 mls/hr IV ASDIRECTED [facility] Last Admin: 03/26/20 23:49 Dose: 125 mls/hr Potassium Chloride 20 meq/Lidocaine HCl 2 ml/ Sodium Chloride 112 mls @ 56 mls/ hr IV Q2H [facility] Stop: 03/26/20 20:29 Last Admin: 03/26/20 18:29 Dose: 56 mls/hr Lactated Ringer's (Ringers, Lactated) 500 mls @ 500 mls/hr IV BOLUS ONE Stop: 03/27/20 08:14 Last Admin: 03/27/20 07:05 Dose: 500 mls/hr Potassium Phosphate 15 mmol/ (Premix) 250 mls @ 125 mls/hr IV Q2H [facility] Stop: 03/27/20 18:59 Last Admin: 03/27/20 19:34 Dose: 125 mls/hr Metoprolol Succinate (Toprol Xl) 12.5 mg PO DAILY [facility] Last Admin: 03/27/20 09:45 Dose: 12.5 mg Metoprolol Succinate (Toprol Xl) 12.5 mg PO ONETIME ONE Stop: 03/27/20 13:16 Last Admin: 03/27/20 13:46 Dose: 12.5 mg Non-Formulary Medication (Cholestyramine (With Sugar) [Cholestyramine Powder]) 26 mg PO ASDIRECTED [facility] Non-Formulary Medication (Timolol Maleate/Pf [Timoptic 0.5% Ocudose Drop]) 1 drop EYEBOTH DAILY [facility] Last Admin: 03/27/20 12:59 Dose: Not Given Pantoprazole Sodium (Protonix Iv) 40 mg IVPUSH Q12H [facility] Last Admin: 03/28/20 03:44 Dose: 40 mg Potassium Chloride (Klor-Con M20) 40 meq PO ONETIME ONE Stop: 03/28/20 08:01 Last Admin: 03/28/20 09:57 Dose: 40 meq Propofol (Diprivan 20 Ml) Confirm Administered Dose 200 mg .ROUTE .STK-MED ONE Stop: 03/27/20 07:42 - Exam General: Reports: Alert, Oriented, Cooperative, Mild Distress Lungs: Reports: Clear to Auscultation, Normal Respiratory Effort Cardiovascular: Reports: Regular Rate, Regular Rhythm, No Murmurs GI/Abdominal Exam: Soft, No Organomegaly, Tender. No: Distended, Guarding, Rigid, Rebound Extremities: Non-Tender, No Pedal Edema
[2020-03-28] MEDS: Enoxaparin 40 MG/0.4 ML Syringe SUBCUT SCH (16:27)
[2020-03-28] MEDS ORDERED: Pantoprazole 40 MG Tab.CR PO SCH (16:30)
[2020-03-28] MEDS: Dutasteride 0.5 MG Cap PO SCH (20:23)
[2020-03-28] MEDS: Dicyclomine 10 MG Cap PO SCH (20:23)
[2020-03-28 22:37] VITALS: BP 153/84; PULSE 93
[2020-03-29] MEDS: Nystatin Susp 100,000 Unit/ML 5 ML UD Cup PO SCH (05:45)
--- NOTE | 2020-03-29 10:39 | PN ---
DATE OF SERVICE: 03/29/2020 Abdi is discharged today per Morgan Velazquez MD. He will be following up with Sanchez David MD, on 04/04/2020 at 11:15 a.m. He is to be on Protonix long-term, and Dr. Velazquez gave him a prescription of Lomotil, which he feels has helped with his diarrhea. He is to have a flexible sigmoidoscopy scheduled with Sanchez David MD, in 4 to 6 weeks. Discharge per Morgan Velazquez MD. Liz Dai PA-C /[id number]
--- NOTE | 2020-04-02 11:50 | OR ---
DATE OF PROCEDURE: 03/27/2020 SURGEON: Sanchez David MD PREOPERATIVE DIAGNOSES: 1. Probable upper gastrointestinal bleeding. 2. Possible stricture at colorectal anastomosis. POSTOPERATIVE DIAGNOSES: 1. Upper gastrointestinal bleeding associated with severe esophagitis without possible fungal overgrowth and associated diffuse gastritis. 2. 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 OPERATIVE PROCEDURES: Esophagogastroduodenoscopy with: 1. Collection of esophageal contents for fungal stains and cultures. 2. Biopsies of antrum for CLOtest (25702). 3. Flexible sigmoidoscopy with dilation of colorectal anastomosis (67139). ANESTHESIA: IV sedation. 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 The patient received preoperative chemoradiation and now presents with some probable upper gastrointestinal bleeding based on history. He does have history of severe esophagitis in the recent past and has not been on any proton pump inhibitors. He also is having some increasing problems with tenesmus and plan is to proceed with upper GI endoscopy for diagnostic purposes as well as a flexible sigmoidoscopy to rule out evolving stricture at the colorectal anastomosis, which would be a significant likelihood given the history and the radiation effects. Potential risks of the procedure were reviewed with the patient including bleeding and perforation and he wishes to proceed. DETAILS OF PROCEDURE: The patient was taken to the operating room and placed in a left lateral decubitus position. IV sedation was administered, after which the upper GI endoscope was passed orally through the length of the esophagus into the stomach with retroflexion view of the fundus, and thereafter through the pyloric channel into the junction of the 3rd and 4th portions of the duodenum. Findings included normal hypopharynx, larynx, and upper esophageal sphincter. As one entered into the esophagus, the distal two-third of the esophagus was severely inflamed and covered with a diffuse fibrinous exudate. This was somewhat suspicious for an element of fungal overgrowth and some of the esophageal contents were evacuated and sent for fungal stain and culture. Apart from that, there was some blood present both fresh and old likely associated with the patient's likely upper gastrointestinal bleed. No significant active bleeding was seen. As one passed into the stomach, there was more or less a diffuse gastritis without erosions or ulcers. Pyloric channel and duodenum, the junction of the 3rd and 4th portions were otherwise unremarkable. At this point, biopsies were obtained from the antrum and sent for CLOtest for H pylori. At that point, the upper GI endoscope was removed and the procedure was then concluded. It was felt best not to biopsy the esophagus at this point so as to avoid recurrent problems with bleeding. At this point, attention was taken to do flexible sigmoidoscopy. Initial digital rectal exam performed was unremarkable. The flexible sigmoidoscope was then passed into the rectum and passed few centimeters upward where the colorectal anastomosis was identified. This was in fact fairly narrowed with the colonoscope not able to be passed through the anastomosis. Of note, some of the more normal mucosa on the proximal end of the anastomosis was noted with intermittently prolapsing ball valve type picture occluding the anastomosis which may part of the patient's ongoing symptoms. A Bard gastrointestinal catheter was then centered across the anastomosis and inflated to 45-Arabic size. This was held in position for 1 minute, after which balloon catheter was deflated and withdrawn. Scope easily was then passed through the anastomosis and this appeared to alleviate the tendency for the ball- valving effect as well. The procedure was complications. Procedure was concluded. The patient was taken to the recovery room in satisfactory condition. Sanchez David MD /[id number]
== END 2020-03-29 07:30 | disposition home or self-care (01) | DRG 394 ==
LOC: JP.ED 12:07 → JP.MS 14:16
PROVIDERS: ADMIT Hospitalist; ATTEND Hospitalist
PROC: 0D7N8ZZ Dilation of Sigmoid Colon, Via Natural or Artificial Opening Endoscopic (ICD-10-PCS; principal; 2020-03-27)
PROC: 0DB78ZX Excision of Stomach, Pylorus, Via Natural or Artificial Opening Endoscopic, Diagnostic (ICD-10-PCS; 2020-03-27)
DX: K56.600 Partial intestinal obstruction, unspecified as to cause (principal); K91.858 Other complications of intestinal pouch; B37.81 Candidal esophagitis; H54.7 Unspecified visual loss; K62.4 Stenosis of anus and rectum; Z86.010 Personal history of colon polyps; N40.0 Benign prostatic hyperplasia without lower urinary tract symptoms; I10 Essential (primary) hypertension; E87.6 Hypokalemia; Z86.14 Personal history of Methicillin resistant Staphylococcus aureus infection; Z98.49 Cataract extraction status, unspecified eye; Z90.49 Acquired absence of other specified parts of digestive tract; M48.00 Spinal stenosis, site unspecified; K40.90 Unilateral inguinal hernia, without obstruction or gangrene, not specified as recurrent; Z93.2 Ileostomy status; E86.0 Dehydration; J44.9 Chronic obstructive pulmonary disease, unspecified; K29.70 Gastritis, unspecified, without bleeding; F31.9 Bipolar disorder, unspecified; Z96.659 Presence of unspecified artificial knee joint; Z79.899 Other long term (current) drug therapy; Z85.048 Personal history of other malignant neoplasm of rectum, rectosigmoid junction, and anus; Z92.21 Personal history of antineoplastic chemotherapy; Z92.3 Personal history of irradiation
CPT/HCPCS: 36415; 74176 ×2; 80053; 83605; 85025; 87046; 87493; 87899 ×2; 89055; 96360; 99285; J7030; 74019; 74019-26; 74021; 74021-26; 80048; 83735; 84100; 85027; 87081; 87102; 87220; 97162-GP; A9270-GY; C9113; J1650; J2001; J2704; J3010; J3480; J7050; J7120

== ENCOUNTER 2020-04-24 06:22 | Day surgery (SDC) | payer MEDICARE, OTHER ==
[~2020-04-24 06:22] MED LIST changes: +Dextrose 5%-Lactated Ringers 1,000 ML IV SCH; -Meropenem 500 MG SDV ONE; +Propofol 200 MG/20 ML SDV ONE; +fentaNYL 100 MCG/2 ML SDV ONE
[2020-04-24] MEDS ORDERED: Neomycin/Polymyxin B 1 ML, Sodium Chloride 0.9% 500 ML IRR ONE ×2 (06:30)
[2020-04-24] MEDS ORDERED: cefOXitin 2 GM in Sodium Chloride 0.9% 50 ML IV ONE (07:15)
[2020-04-24 08:55] VITALS: PULSE 70
[2020-04-24 09:49] VITALS: BP 139/70
--- NOTE | 2020-04-24 13:37 | OR ---
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 OPERATIVE PROCEDURE: Flexible sigmoidoscopy with dilation of colorectal anastomosis (10377). ANESTHESIA: IV sedation. INDICATION FOR PROCEDURE: The patient is status post a low anterior with preoperative chemoradiation treatment. With radiation, he has had problems with stricturing at the colorectal anastomosis. Following the most previous dilation, which was done on April 01, the patient did well up until recently. Now, he is having some more symptoms of partial obstruction. Plan is to proceed with a flexible sigmoidoscopy with dilation of the anastomosis. Potential risks including bleeding and perforation were discussed, and the patient wishes to proceed. DETAILS OF PROCEDURE: The patient was taken to the operating room and placed in a left lateral decubitus position. IV sedation was administered. Initial digital rectal exam was performed. Other than for it being thickened and narrowed secondary to radiation changes, no abnormalities were noted. The scope was then passed into the rectum up to the colorectal anastomosis. This was fairly low, in the range of around 5 cm. The 1 cm scope could just barely be passed through the anastomosis. This was wider than the previous dilation, however. A gastrointestinal catheter was then centered across the anastomosis and inflated to 54-Nepalese size, stage II, and following that, the balloon catheter was deflated. There appeared to be a satisfactory dilation. There was some loss of what otherwise appeared to be necrotic mucosa, but otherwise no complications were noted. The scope was withdrawn. The patient was taken to the recovery room in satisfactory condition. Sanchez David MD /[id number] [facility]
== END 2020-04-24 10:34 | disposition home or self-care (01) ==
LOC: JP.SDS 06:22
PROVIDERS: ATTEND Surgery
DX: K91.89 Other postprocedural complications and disorders of digestive system (principal); K91.30 Postprocedural intestinal obstruction, unspecified as to partial versus complete; I10 Essential (primary) hypertension; J44.9 Chronic obstructive pulmonary disease, unspecified; K21.9 Gastro-esophageal reflux disease without esophagitis; N40.0 Benign prostatic hyperplasia without lower urinary tract symptoms
CPT/HCPCS: 45340; J0694; J2704; J3010; J7050; J7121

== ENCOUNTER 2020-12-07 22:04 | Inpatient (IN) | payer MEDICARE, OTHER ==
[2020-12-07] MEDS ORDERED: Sodium Chloride 0.9% 10 ML Syringe FLUSH PRN (22:44)
[2020-12-07] MEDS ORDERED: Sodium Chloride 0.9% 1,000 ML IV STA (22:44)
[2020-12-07] MEDS ORDERED: fentaNYL 100 MCG/2 ML SDV IVPUSH ONE (22:46)
--- NOTE | 2020-12-07 22:50 | EDM.PDOC ---
ED HPI GENERAL MEDICAL PROBLEM - General Chief Complaint: Abdominal Pain Stated Complaint: CONSTIPATION AFTER SURGURY Time Seen by Provider: 12/07/20 22:48 Source of Information: Reports: Patient, Family, RN Notes Reviewed History Limitations: Reports: No Limitations - History of Present Illness INITIAL COMMENTS - FREE TEXT/NARRATIVE: 85-year-old gentleman presents emergency department a complaint of abdominal pain, states he is feeling okay yesterday he has had difficulty with his bowel movement since surgery he will wax and wane between constipation and diarrhea also history of stricture at the anastomosis site he did have a rectal surgery status post resection. He states today he is just not been feeling well poor oral intake had gone to the bathroom earlier today and then sudden onset of pain became very sweaty was lightheaded was helped to the bedroom and then became very flushed. He states the pain will wax and wane as high as 5 out of 10 right now he rates it maybe 3 out of 10 he states he still passing gas Middle Abdominal Pain Score (Numeric/FACES): 3 - Related Data Allergies Allergy/AdvReac Type Severity Reaction Status Date / Time No Known Allergies Allergy Verified 12/07/20 22:16 Home Meds: Home Meds Dutasteride [Avodart] 0.5 mg PO BEDTIME 08/08/16 [History] Timolol Maleate/PF [Timoptic 0.5% Ocudose Drop] 1 drop EYEBOTH DAILY 08/08/16 [History] Venlafaxine [Effexor XR] 225 mg PO DAILY 08/08/16 [History] amLODIPine [Norvasc] 5 mg PO DAILY 03/29/19 [History] Dorzolamide [Trusopt 2% Ophth Soln] 1 drop EYERT BID 08/04/19 [History] Gabapentin [Neurontin] 600 mg PO BID 02/21/20 [History] Acetaminophen [Tylenol Arthritis] 650 mg PO Q6H PRN 04/19/20 [History] Metoprolol Succinate [Toprol XL] 25 mg PO DAILY 04/19/20 [History] Prochlorperazine [Compazine] 10 mg PO Q6H PRN 04/19/20 [History] Trifluridine 1 - 2 drop OP DAILY 04/19/20 [History] Tamsulosin HCl [Flomax] 0.4 mg PO BID 04/24/20 [History] Bismuth Subsalicylate [Kaopectate] 1 tab PO ASDIRECTED PRN 12/07/20 [History] Colestipol HCl 1 tab PO BID 12/07/20 [History] Loperamide [Imodium] 1 tab PO ASDIRECTED PRN 12/07/20 [History] Past Medical History HEENT History: Reports: Cataract, Glaucoma, Impaired Vision, Other (See Below) Other HEENT History: borderline glaucoma Cardiovascular History: Reports: Hypertension Respiratory History: Reports: COPD Gastrointestinal History: Reports: Cholelithiasis, Colon Polyp, GERD, Other (See Below) Other Gastrointestinal History: history of rectal fissure Genitourinary History: Reports: Prostate Disorder Other Genitourinary History: enlarged prostate Musculoskeletal History: Reports: Arthritis, Back Pain, Chronic Psychiatric History: Reports: Bipolar, Depression Immunologic History: Reports: Other (See Below) Other Immunologic History: chemotherapy in past Oncologic (Cancer) History: Reports: Colon, Other (See Below) Other Oncologic History: rectal - Infectious Disease History Infectious Disease History: Reports: Chicken Pox, Measles, Mumps - Past Surgical History HEENT Surgical History: Reports: Cataract Surgery, Detached Retina, Tonsillectomy Cardiovascular Surgical History: Reports: None Respiratory Surgical History: Reports: None GI Surgical History: Reports: Colonoscopy, Other (See Below) Other GI Surgeries/Procedures: colon CA with resection and ileostomy, ileostomy takedown Male Surgical History: Reports: None Neurological Surgical History: Reports: Laminectomy Other Neurological Surgeries/Procedures: laminectomy x3 Musculoskeletal Surgical History: Reports: Knee Replacement Oncologic Surgical History: Reports: None Social & Family History - Family History Family Medical History: No Pertinent Family History - Tobacco Use Tobacco Use Status *Q: Never Tobacco User - Caffeine Use Caffeine Use: Reports: Coffee Other Caffeine Use: 4 c/d - Recreational Drug Use Recreational Drug Use: Yes ED ROS GENERAL - Review of Systems Review Of Systems: See Below Constitutional: Denies: Fever, Chills HEENT: Reports: No Symptoms Respiratory: Reports: No Symptoms Cardiovascular: Reports: No Symptoms GI/Abdominal: Reports: Abdominal Pain, Constipation, Diarrhea, Flatus, Nausea. Denies: Vomiting : Reports: No Symptoms ED EXAM, GI/ABD - Physical Exam Exam: See Below Exam Limited By: No Limitations General Appearance: Alert, WD/WN, No Apparent Distress Respiratory/Chest: No Respiratory Distress, Lungs Clear, Normal Breath Sounds, No Accessory Muscle Use, Chest Non-Tender Cardiovascular: Regular Rate, Rhythm, No Murmur GI/Abdominal Exam: Soft, No Distention, Tender (Left lower quadrant), Abnormal Bowel Sounds (Decreased) Extremities: No Pedal Edema Course - Vital Signs Last Recorded V/S: Last Vital Signs Temp 96.8 F L 12/07/20 22:24 Pulse 92 12/07/20 23:42 Resp 20 12/07/20 22:24 BP 209/109 H 12/07/20 23:42 Pulse Ox 99 12/07/20 22:24 - Orders/Labs/Meds Orders: Active Orders 24 hr Category Date Time Status Peripheral IV Care [RC] . DIRECTED Care 12/07/20 22:45 Active Iopamidol [Isovue-300 (61%)] Med 12/07/20 23:01 Active 100 ml IV . DIRECTED PRN Sodium Chloride 0.9% [Normal Saline] 79 ml Med 12/07/20 23:15 Active IV ASDIRECTED Sodium Chloride 0.9% [Saline Flush] Med 12/07/20 22:44 Active 10 ml FLUSH ASDIRECTED PRN Peripheral IV Insertion Adult [OM.PC] Urgent Oth 12/07/20 22:44 Ordered Medication Orders Sodium Chloride (Normal Saline) 79 mls @ 3 mls/sec IV ASDIRECTED AIDA Last Admin: 12/07/20 23:37 Dose: 3 mls/sec Documented by: [email or web address] Iopamidol (Isovue-300 (61%)) 100 ml IV . DIRECTED PRN PRN Reason: RADIOLOGY EXAM Stop: 12/08/20 23:02 Last Admin: 12/07/20 23:37 Dose: 100 ml Documented by: [email or web address] Sodium Chloride (Saline Flush) 10 ml FLUSH ASDIRECTED PRN PRN Reason: Keep Vein Open Last Admin: 12/07/20 23:37 Dose: 10 ml Documented by: JOSSELYN Labs: Laboratory Tests 12/07/20 12/07/20 12/07/20 Range/Units 22:44 22:50 22:50 WBC 15.4 H (4.5-11.0) K/uL RBC 5.49 (4.30-5.90) M/uL Hgb 14.8 D (12.0-15.0) g/dL Hct 46.4 (40.0-54.0) % MCV 85 (80-98) fL MCH 27 (27-31) pg MCHC 32 (32-36) % Plt Count 314 (150-400) K/uL Neut % (Auto) 92 H (36-66) % Lymph % (Auto) 4 L (24-44) % Woodward % (Auto) 4 (2-6) % Eos % (Auto) 0 L (2-4) % Baso % (Auto) 0 (0-1) % Sodium 138 L (140-148) mmol/L Potassium 3.8 (3.6-5.2) mmol/L Chloride 100 (100-108) mmol/L Carbon Dioxide 24 (21-32) mmol/L Anion Gap 17.8 H (5.0-14.0) mmol/L BUN 22 H D (7-18) mg/dL Creatinine 0.9 (0.8-1.3) mg/dL Est Cr Clr Drug Dosing 66.24 mL/min Estimated GFR (MDRD) > 60 (>60) Glucose 217 H (74-106) mg/dL Lactic Acid (0.4-2.0) mmol/L Calcium 9.6 D (8.5-10.1) mg/dL Total Bilirubin 0.8 D (0.2-1.0) mg/dL AST 15 (15-37) U/L ALT 19 (12-78) U/L Alkaline Phosphatase 130 H D (46-116) U/L Troponin I < 0.017 (0.000-0.056) ng/mL Total Protein 8.0 (6.4-8.2) g/dL Albumin 4.0 (3.4-5.0) g/dL Globulin 4.0 H (2.3-3.5) g/dL Albumin/Globulin Ratio 1.0 L (1.2-2.2) Lipase 40 L (73-393) U/L Urine Color Yellow (YELLOW) Urine Appearance Clear (CLEAR) Urine pH 6.0 (5.0-8.0) Ur Specific Sycamore >= 1.030 (1.008-1.030) Urine Protein 100 H (NEGATIVE) mg/dL Urine Glucose (UA) 100 H (NEGATIVE) mg/dL Urine Ketones 80 H (NEGATIVE) mg/dL Urine Occult Blood Small H (NEGATIVE) Urine Nitrite Negative (NEGATIVE) Urine Bilirubin Negative (NEGATIVE) Urine Urobilinogen 0.2 (0.2-1.0) EU/dL Ur Leukocyte Esterase Negative (NEGATIVE) Urine RBC 0-5 (0-5) Urine WBC 0-5 (0-5) Ur Epithelial Cells Few Amorphous Sediment Not seen Urine Bacteria Few Urine Mucus Not seen 12/07/20 Range/Units 22:50 WBC (4.5-11.0) K/uL RBC (4.30-5.90) M/uL Hgb (12.0-15.0) g/dL Hct (40.0-54.0) % MCV (80-98) fL MCH (27-31) pg MCHC (32-36) % Plt Count (150-400) K/uL Neut % (Auto) (36-66) % Lymph % (Auto) (24-44) % Woodward % (Auto) (2-6) % Eos % (Auto) (2-4) % Baso % (Auto) (0-1) % Sodium (140-148) mmol/L Potassium (3.6-5.2) mmol/L Chloride (100-108) mmol/L Carbon Dioxide (21-32) mmol/L Anion Gap (5.0-14.0) mmol/L BUN (7-18) mg/dL Creatinine (0.8-1.3) mg/dL Est Cr Clr Drug Dosing mL/min Estimated GFR (MDRD) (>60) Glucose (74-106) mg/dL Lactic Acid 2.3 H (0.4-2.0) mmol/L Calcium (8.5-10.1) mg/dL Total Bilirubin (0.2-1.0) mg/dL AST (15-37) U/L ALT (12-78) U/L Alkaline Phosphatase (46-116) U/L Troponin I (0.000-0.056) ng/mL Total Protein (6.4-8.2) g/dL Albumin (3.4-5.0) g/dL Globulin (2.3-3.5) g/dL Albumin/Globulin Ratio (1.2-2.2) Lipase (73-393) U/L Urine Color (YELLOW) Urine Appearance (CLEAR) Urine pH (5.0-8.0) Ur Specific Sycamore (1.008-1.030) Urine Protein (NEGATIVE) mg/dL Urine Glucose (UA) (NEGATIVE) mg/dL Urine Ketones (NEGATIVE) mg/dL Urine Occult Blood (NEGATIVE) Urine Nitrite (NEGATIVE) Urine Bilirubin (NEGATIVE) Urine Urobilinogen (0.2-1.0) EU/dL Ur Leukocyte Esterase (NEGATIVE) Urine RBC (0-5) Urine WBC (0-5) Ur Epithelial Cells Amorphous Sediment Urine Bacteria Urine Mucus Meds: Medications Generic Name Dose Route Start Last Admin Trade Name Freq PRN Reason Stop Dose Admin Sodium Chloride 79 mls @ 3 mls/sec 12/07/20 23:15 12/07/20 23:37 Normal Saline IV 3 mls/sec ASDIRECTED AIDA Administration Iopamidol 100 ml 12/07/20 23:01 12/07/20 23:37 Isovue-300 (61%) IV 12/08/20 23:02 100 ml . DIRECTED PRN Administration RADIOLOGY EXAM Sodium Chloride 10 ml 12/07/20 22:44 12/07/20 23:37 Saline Flush FLUSH 10 ml ASDIRECTED PRN Administration Keep Vein Open Discontinued Medications Generic Name Dose Route Start Last Admin Trade Name Freq PRN Reason Stop Dose Admin Fentanyl 50 mcg 12/07/20 22:46 12/07/20 23:09 Sublimaze IVPUSH 12/07/20 22:47 50 mcg ONETIME ONE Administration Sodium Chloride 1,000 mls @ 500 mls/hr 12/07/20 22:44 12/07/20 23:05 Normal Saline IV 12/08/20 00:43 500 mls/hr .BOLUS STA Administration Metoprolol Succinate 25 mg 12/08/20 00:42 Toprol Xl PO 12/08/20 00:43 ONETIME ONE Sodium Chloride 10 ml 12/07/20 23:01 12/07/20 23:10 Saline Flush FLUSH 12/07/20 23:02 10 ml ONETIME ONE Administration Departure - Departure Time of Disposition: 00:45 Disposition: Admitted As Inpatient 68 Condition: Fair Clinical Impression: Incarcerated left inguinal hernia - Discharge Information Referrals: Aime Sesay MD [Primary Care Provider] - Forms: ED Department Discharge Sepsis Event Note (ED) - Evaluation Sepsis Screening Result: No Definite Risk - Focused Exam Vital Signs: Vital Signs Temp Pulse Resp BP Pulse Ox 12/07/20 23:42 92 209/109 H 12/07/20 22:28 234/98 H 12/07/20 22:24 96.8 F L 89 20 233/117 H 99 - My Orders Last 24 Hours: My Active Orders 12/07/20 22:44 Sodium Chloride 0.9% [Saline Flush] 10 ml FLUSH ASDIRECTED PRN Peripheral IV Insertion Adult [OM.PC] Urgent 12/07/20 22:45 Peripheral IV Care [RC] . DIRECTED 12/07/20 23:01 Iopamidol [Isovue-300 (61%)] 100 ml IV . DIRECTED PRN 12/07/20 23:15 Sodium Chloride 0.9% [Normal Saline] 79 ml IV ASDIRECTED - Assessment/Plan Last 24 Hours: My Active Orders 12/07/20 22:44 Sodium Chloride 0.9% [Saline Flush] 10 ml FLUSH ASDIRECTED PRN Peripheral IV Insertion Adult [OM.PC] Urgent 12/07/20 22:45 Peripheral IV Care [RC] . DIRECTED 12/07/20 23:01 Iopamidol [Isovue-300 (61%)] 100 ml IV . DIRECTED PRN 12/07/20 23:15 Sodium Chloride 0.9% [Normal Saline] 79 ml IV ASDIRECTED Plan: Assessment Acuity = acute Site and laterality = left inguinal canal incarcerated hernia Etiology = unknown Manifestations = abdominal pain Location of injury = Home Lab values = WBC elevated 15.4 consistent leukocytosis, lactic acid slightly elevated 2.3 consistent with lactic acidosis troponin was negative specific gravity 1.03 consistent with intravascular volume lesion CT scan describes the hernia above Plan Call discussed case with Dr. David at 0044 kindly agreed to come evaluate the patient in the hospital plan for surgical intervention This note was dictated using [employer] voice recognition software please call with any questions on syntax or grammar.
[2020-12-07] MEDS ORDERED: Iopamidol 612 MG/ML 100 ML Bottle IV PRN (23:01)
[2020-12-07] MEDS ORDERED: Sodium Chloride 0.9% 10 ML Syringe FLUSH ONE (23:01)
--- NOTE | 2020-12-08 00:31 | CRLCT ---
INDICATION: Left lower quadrant abdominal pain TECHNIQUE: Axial images were obtained from the diaphragm to the pubic symphysis. Reformats were obtained in the coronal and sagittal plane. IV Contrast: 100 cc Isovue-300 Oral Contrast: None COMPARISON: Abdomen and pelvis CT 03/26/2020 FINDINGS: Lower chest: Discoid atelectasis within the right middle lobe with some bronchial wall thickening in the right lower lobe with a focal area of luminal occlusion noted (2, 5). Liver: Indeterminate hypodense lesion right lobe liver measuring 7 millimeters. Gallbladder and bile ducts: Mild gallbladder distention without pericholecystic inflammation. Spleen: Mildly inhomogeneous enhancement of the spleen laterally which can represent part of a perfusion anomaly without a well-defined lesion. Pancreas: Moderate pancreatic atrophy. Adrenal glands: Unremarkable. No nodules. Kidneys: Symmetric enhancement without hydronephrosis. Multiple renal cysts bilaterally. Vasculature: Atherosclerosis without abdominal aortic aneurysm. GI tract: Stomach is unremarkable. The patient is status post small bowel resection with a suture line left upper quadrant. Slight haziness in the mesentery with small bowel extending into a large left indirect inguinal hernia. Small bowel wall thickening in the hernia sac as well as small free fluid. Pelvis: Status post rectal surgery with soft tissue and calcification redemonstrated in the presacral space similar to the prior exam. Bones: Old burst type fracture L5 redemonstrated with prominent degenerative disc disease at L4-5. IMPRESSION: 1. Left indirect inguinal hernia with small bowel entering the hernia sac with small-bowel wall thickening and fluid in the hernia sac consistent with an incarcerated hernia. 2. Status post small bowel resection as well as rectal surgery. Presacral scarring redemonstrated. 3. Bronchial wall thickening with area of luminal occlusion in the posterior segment of the right lower lobe. Differential diagnosis includes intrabronchial lesion or mucus/debris. Follow-up chest CT recommended in 4 weeks after vigorous coughing. If there is failure of this process to resolve, bronchoscopy would be indicated. 4. Other incidental findings as detailed above. Please note that all CT scans at this facility use dose modulation, iterative reconstruction, and/or weight-based dosing when appropriate to reduce radiation dose to as low as reasonably achievable. Dictated by Francisco York MD @ Dec 08 2020 12:11AM Signed by Dr. Francisco York @ Dec 08 2020 12:30AM
[2020-12-08] MEDS ORDERED: Metoprolol Succinate 25 MG Tab.ER PO ONE ×2 (00:42→06:33)
[2020-12-08] MEDS ORDERED: fentaNYL 100 MCG/2 ML SDV IVPUSH PRN (00:46)
[2020-12-08] MEDS ORDERED: Ondansetron 4 MG/2 ML SDV IVPUSH PRN ×2 (00:51→09:49)
[2020-12-08] MEDS ORDERED: Lactated Ringers 1,000 ML IV SCH (01:00)
[2020-12-08 01:55] LABS: CORONAVIRUS COVID-19 NAA NEGATIVE (NEGATIVE)
[2020-12-08] MEDS: cefOXitin 2 GM in Sodium Chloride 0.9% 50 ML IV SCH ×2 (02:00→07:11)
[2020-12-08] MEDS ORDERED: Nitroglycerin 0.4 MG Tab.SL SL ONE (03:12)
[2020-12-08] MEDS ORDERED: amLODIPine 5 MG Tab PO ONE (06:33)
[2020-12-08] MEDS ORDERED: fentaNYL 250 MCG/5 ML SDV ONE (07:27)
[2020-12-08] MEDS ORDERED: Lactated Ringers 1,000 ML ONE (07:43)
[2020-12-08] MEDS ORDERED: Ondansetron 4 MG/2 ML SDV ONE (07:46)
[2020-12-08] MEDS ORDERED: Dexamethasone 4 MG/ML SDV ONE (07:46)
[2020-12-08] MEDS ORDERED: Rocuronium 50 MG/5 ML Vial ONE (07:46)
[2020-12-08] MEDS ORDERED: Neostigmine Methylsulfate 1 MG/ML 5 ML Syringe ONE (07:46)
[2020-12-08] MEDS ORDERED: Succinylcholine 200 MG/10 ML MDV ONE (07:46)
[2020-12-08] MEDS ORDERED: Glycopyrrolate 0.2 MG/ML 5 ML MDV ONE (07:46)
[2020-12-08] MEDS ORDERED: Propofol 200 MG/20 ML SDV ONE (07:46)
[2020-12-08] MEDS: Bupivacaine 0.5% 50 ML MDV ONE ×2 (08:02→08:43)
[2020-12-08] MEDS: Lidocaine 1% with EPINEPHrine 1:100,000 50 ML MDV ONE ×2 (08:02→08:43)
[2020-12-08] MEDS ORDERED: Ketorolac 60 MG/2 ML SDV ONE (08:25)
[2020-12-08] MEDS ORDERED: amLODIPine 5 MG Tab PO SCH (09:00)
[2020-12-08] MEDS: Venlafaxine 75 MG Cap.ER PO SCH (09:00)
[2020-12-08] MEDS: Gabapentin 300 MG Cap PO SCH ×2 (09:00→21:04)
[2020-12-08] MEDS: Tamsulosin 0.4 MG Cap.ER PO SCH ×2 (09:00→21:04)
[2020-12-08] MEDS ORDERED: HYDROmorphone 0.5 MG/0.5 ML Syringe IVPUSH PRN (09:50)
[2020-12-08] MEDS ORDERED: HYDROmorphone 1 MG/ML Syringe IV PRN (09:51)
[2020-12-08] MEDS: Acetaminophen 325 MG Tab PO SCH ×3 (10:30→21:04)
[2020-12-08] MEDS: ceFAZolin 1 GM in Premix Bag 1 BAG IV SCH ×2 (14:04→21:04)
[2020-12-08] MEDS: oxyCODONE 5 MG Tab PO PRN (19:49)
[2020-12-08] MEDS: Bisacodyl 5 MG Tab PO SCH (21:04)
[2020-12-08] MEDS: Dutasteride 0.5 MG Cap PO SCH (21:04)
[2020-12-08] MEDS: Docusate Sodium 100 MG Cap PO SCH (21:04)
[2020-12-09] MEDS: Dextrose 5%-Lactated Ringers 1,000 ML IV SCH ×3 (01:30→23:45)
[2020-12-09] MEDS: Acetaminophen 325 MG Tab PO SCH ×5 (03:48→22:39)
[2020-12-09] MEDS: oxyCODONE 5 MG Tab PO PRN ×2 (03:49→22:38)
[2020-12-09] MEDS: ceFAZolin 1 GM in Premix Bag 1 BAG IV SCH (05:32)
[2020-12-09] MEDS: Bisacodyl 5 MG Tab PO SCH ×3 (09:47→22:38)
[2020-12-09] MEDS: Venlafaxine 75 MG Cap.ER PO SCH (09:49)
[2020-12-09] MEDS: Docusate Sodium 100 MG Cap PO SCH ×2 (09:49→20:28)
[2020-12-09] MEDS: Gabapentin 300 MG Cap PO SCH ×2 (09:49→20:28)
[2020-12-09] MEDS: amLODIPine 5 MG Tab PO SCH (09:49)
[2020-12-09] MEDS: Tamsulosin 0.4 MG Cap.ER PO SCH ×2 (09:49→20:28)
[2020-12-09] MEDS: Metoprolol Succinate 25 MG Tab.ER PO SCH (09:49)
[2020-12-09] MEDS ORDERED: Dutasteride 0.5 MG Cap PO ONE (10:00)
[2020-12-09] MEDS: Timolol Maleate 0.5% Ophth Soln 5 ML Bottle EYEBOTH SCH (13:05)
[2020-12-09] MEDS: Dorzolamide 2% Ophth Soln 10 ML Bottle EYERT SCH ×2 (13:05→20:29)
[2020-12-09] MEDS: Dutasteride 0.5 MG Cap PO SCH (20:29)
[2020-12-09] MEDS: COLESTIPOL 1 GM PO SCH (20:30)
[2020-12-10] MEDS: Acetaminophen 325 MG Tab PO SCH ×2 (04:25→09:21)
[2020-12-10] MEDS: Venlafaxine 75 MG Cap.ER PO SCH (08:07)
[2020-12-10] MEDS: Tamsulosin 0.4 MG Cap.ER PO SCH (08:08)
[2020-12-10] MEDS: Docusate Sodium 100 MG Cap PO SCH (08:08)
[2020-12-10] MEDS: amLODIPine 5 MG Tab PO SCH (08:09)
[2020-12-10] MEDS: Gabapentin 300 MG Cap PO SCH (08:09)
[2020-12-10] MEDS: Metoprolol Succinate 25 MG Tab.ER PO SCH (08:10)
[2020-12-10] MEDS: Dorzolamide 2% Ophth Soln 10 ML Bottle EYERT SCH (08:12)
[2020-12-10] MEDS: Timolol Maleate 0.5% Ophth Soln 5 ML Bottle EYEBOTH SCH (08:12)
[2020-12-10] MEDS: COLESTIPOL 1 GM PO SCH (08:14)
[2020-12-10] MEDS: Bisacodyl 5 MG Tab PO SCH (08:14)
[2020-12-10] MEDS ORDERED: Dutasteride 0.5 MG Cap PO ONE (09:00)
[2020-12-10] MEDS ORDERED: TRIFLURIDINE EYEBOTH SCH (09:00)
[2020-12-10 11:41] VITALS: BP 139/72; PULSE 66
--- NOTE | 2020-12-10 17:59 | DISCH ---
ADMISSION DIAGNOSIS: Abdominal pain. DISCHARGE DIAGNOSES: Open repair of incarcerated indirect left inguinal hernia, left ilioinguinal and internal hernia nerves, division of left inguinal ileal and internal ileal nerves, and incarcerated indirect left inguinal hernia, and removal of scar entrapment. Date of procedure: 12/08/2020. Surgeon: Sanchez David MD. HISTORY: Dalton presented to the emergency room for severe abdominal pain. After preoperative evaluation and discussion of possible risks and possible complications, he wished to proceed with surgical procedure. HOSPITAL COURSE: Abdi Carey had his surgery on 12/08/2020. He had no operative complications. On postoperative day #1, he was started on oral pain medication and his normal pain medication. Perez was discontinued. He was given an extra dose of Avodart and he did urinate without difficulty, had a bowel movement. Pain was well managed and he was able to be discharged to home on postoperative day #2. PHYSICAL EXAMINATION: GENERAL: Dalton is a pleasant 85-year-old male. VITAL SIGNS: Height 5 feet 11 inches, weight is 179 pounds. TPR is 97.7, 73, 16, blood pressure 165/84. HEENT: Negative. NECK: Supple. HEART: Regular rate and rhythm. LUNGS: Clear. SKIN: Incision looks good. It is glued. EXTREMITIES: Without peripheral edema. DISPOSITION: Discharged to home. CONDITION: Stable and improving. HOME MEDICATIONS: 1. Oxycodone 5 mg q.4 hours p.r.n. pain, #10, written script. 2. He is to resume his home medications: a. Colestipol HCL 1 g p.o. b.i.d. b. Effexor 225 mg p.o. daily. c. Kaopectate 1 tablet as directed p.r.n. d. Tylenol Arthritis 650 mg q.6 hours p.r.n. e. Imodium 1 tablet p.o. as directed p.r.n. f. Toprol-XL 25 mg p.o. daily. g. Neurontin 600 mg p.o. b.i.d. h. Avodart 0.5 mg p.o. at bedtime. i. Trusopt 2% ophthalmic solution 1 drop right eye b.i.d. j. Trifluridine 1 to 2 drops in eye daily. k. Timolol maleate/Timoptic 0.5% 1 drop in each eye daily. l. Flomax 0.4 mg p.o. b.i.d. m. Compazine 10 mg p.o. q.6 hours p.r.n. pain. FOLLOWUP APPOINTMENT: With Sanchez David, 12/19/2020 at 8 a.m. DIET: Usual diet as tolerated. Drink 8 to 10 glasses of water a day. ACTIVITY: No lifting greater than 10 pounds for 4 weeks. Walk at least 6 times daily inside your home. Driving: Do not drive for 1 week. Shower/bathing: May shower. DISCHARGE INSTRUCTIONS: Keep operative site clean and dry. Notify provider if any fever, increased pain, swelling, redness, drainage, nausea, or vomiting. Use incentive spirometer 10 times every hour while awake. /[id number]
--- NOTE | 2020-12-11 10:32 | PN ---
DATE OF SERVICE: 12/09/2020 The patient has been afebrile with stable vital signs. Retained urine overnight had around 800 mL on the bladder scan. Perez catheter was placed. The does report that he missed several doses of Flomax and Avodart at home prior to coming to the hospital. He is on Flomax 0.4 mg b.i.d. and Avodart 0.5 mg at bedtime. We will give him an extra dose of Avodart this morning. The Perez catheter, we will leave in until tomorrow morning and try getting that out. Otherwise, he will be ready for discharge home if we are able to get his bladder to work. Of course, we will also be giving him some bowel stimulation and otherwise regular diet. Pain control appears to be good with oral pain medication. Sanchez David MD /[id number]
--- NOTE | 2020-12-16 11:25 | OR ---
DATE OF PROCEDURE: 12/08/2020 SURGEON: Sanchez David MD PREOPERATIVE DIAGNOSIS: Incarcerated left inguinal hernia. POSTOPERATIVE DIAGNOSES: 1. Incarcerated indirect left inguinal hernia. 2. Left ilioinguinal and left iliohypogastric nerves at risk for scar entrapment. OPERATIVE PROCEDURE: Left inguinal exploration with: 1. Repair of incarcerated indirect left inguinal hernia with mesh plug technique. 2. Excision of a portion of the left ilioinguinal nerve (87489). 3. Excision of a portion of the left iliohypogastric nerve (85274). ANESTHESIA: General. INDICATIONS FOR PROCEDURE: This is an 85-year-old male presenting with an incarcerated left inguinal hernia. This presented as a small-bowel obstruction with patient having crampy abdominal pain, nausea, and some vomiting. CT scan showed small-bowel loops within the left inguinal hernia. Of note, there was no evidence of recurrence of any tumor with the patient being status post multimodal treatment of a rectal carcinoma. The plan is to proceed with a left inguinal exploration with repair of the hernia, bowel resection as indicated. Potential risks including bleeding, infection, injury to the underlying viscera, mesh , and the potential risks of the mesh becoming infected were gone over, and the patient wishes to proceed, and that we will also divide nerve branches in the area, especially the ilioinguinal and iliohypogastric nerves, to prevent postoperative neuropathic pain was gone over as well, and the patient wishes to proceed. DETAILS OF PROCEDURE: The patient was taken to the operating room and placed in a supine position. After general endotracheal anesthesia was induced, the abdomen and groin areas were prepped and draped. A standard left inguinal incision was made and carried down through the skin and subcutaneous tissue and through the external oblique aponeurosis. Subaponeurotic flaps were then raised superiorly and inferiorly. The cord structures were then mobilized upward. This contained some obvious bowel loops within it. These were gradually reduced at this point after opening the sac and visualizing the bowel to be otherwise viable. He had some mild venous congestion grossly, but again, the bowel involved was entirely viable and at that point reduced back into the peritoneal cavity. Hernia sac was then dissected back down to the level of the internal ring. This was quite a large sac, which would allow probably the volume of a tennis ball. The sac was then sutured, closed, and then turned in. An extra-large mesh plug was placed into the defect and affixed to the Loki ligament medially with titanium tacking screws and the underside of the conjoint tendon medially, superiorly, and laterally with horizontal mattress sutures of 3-0 Vicryl stitch. This was an indirect hernia. The inferior aspect of the hernia defect was affixed to the mesh with sutures using the shelving portion of the inguinal ligament as well. The conjoint tendon was reapproximated to the shelving portion of the inguinal ligament out to the level of the internal ring, and the flat portion of mesh was then placed over that area, sutured laterally to the internal ring with a 3-0 Vicryl stitch and stapled to the pubic tubercle with titanium tacking screw. Over this, the cord structures were placed. The ilioinguinal nerve and iliohypogastric nerves were felt to be at risk for scar entrapment with the mesh being placed overlying them and therefore were divided and excised to the far lateral aspect of the incision. The external oblique aponeurosis was then approximated with a 3-0 Vicryl stitch as was Maria [place] Carmen fascia and the skin closed with a 4-0 Vicryl subcuticular stitch. Dressing was applied. The patient was taken to the recovery room in satisfactory condition. Sanchez David MD /[id number]
== END 2020-12-10 14:00 | disposition home or self-care (01) | DRG 352 ==
LOC: JP.ED 22:04 → JP.ICU 12-08 00:47 → JP.MS 12-09 10:00
PROVIDERS: ADMIT Surgery; ATTEND Surgery
PROC: 01B Peripheral Nervous System, Excision (ICD-10-PCS; principal; 2020-12-08)
PROC: 0YU60JZ Supplement Left Inguinal Region with Synthetic Substitute, Open Approach (ICD-10-PCS; principal; 2020-12-08)
DX: K40.30 Unilateral inguinal hernia, with obstruction, without gangrene, not specified as recurrent (principal); H54.7 Unspecified visual loss; H40.9 Unspecified glaucoma; I10 Essential (primary) hypertension; J44.9 Chronic obstructive pulmonary disease, unspecified; M19.90 Unspecified osteoarthritis, unspecified site; G89.29 Other chronic pain; M54.9 Dorsalgia, unspecified; F31.9 Bipolar disorder, unspecified; K21.9 Gastro-esophageal reflux disease without esophagitis; Z90.49 Acquired absence of other specified parts of digestive tract; Z79.899 Other long term (current) drug therapy; Z20.822 Contact with and (suspected) exposure to COVID-19; R45.0 Nervousness; F32.9 Major depressive disorder, single episode, unspecified; Z98.42 Cataract extraction status, left eye; Z98.41 Cataract extraction status, right eye; Z90.89 Acquired absence of other organs; Z86.010 Personal history of colon polyps; Z98.890 Other specified postprocedural states; Z93.2 Ileostomy status; Z85.038 Personal history of other malignant neoplasm of large intestine
CPT/HCPCS: 0241U; 36415; 51702; 51798; 74177; 80053; 81001; 83605; 83690; 84484; 85025; 88302; 96374; 99285; 99285-25; A9270-GY; C1713; C1781; J0330; J0690; J0694; J1100; J1885; J2020; J2405; J2704; J2710; J3010; J3490; J7030; J7120; J7121; Q9967

== ENCOUNTER 2021-01-08 06:32 | Day surgery (SDC) | payer MEDICARE, OTHER ==
[2021-01-08] MEDS ORDERED: Dextrose 5%-Lactated Ringers 1,000 ML IV SCH (06:40)
[2021-01-08] MEDS ORDERED: Sodium Phosphate,Monobasic/Sodium Phosphate,Dibasic Enema 133 ML Bottle RECTAL ONE ×2 (06:40→07:58)
[2021-01-08] MEDS ORDERED: Propofol 200 MG/20 ML SDV ONE (07:04)
[2021-01-08] MEDS ORDERED: Meropenem 500 MG in Sodium Chloride 0.9% 50 ML IV ONE (07:30)
[2021-01-08 10:27] VITALS: BP 149/76; PULSE 79
--- NOTE | 2021-01-09 17:36 | OR ---
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 POSTOPERATIVE DIAGNOSIS: History of rectal carcinoma with a mild stricture of colorectal anastomosis. OPERATIVE PROCEDURE: Flexible colonoscopy with dilation of colorectal anastomosis (57808). ANESTHESIA: IV sedation. INDICATION FOR PROCEDURE: This is an 85-year-old status post previous low anterior resection for a rectal carcinoma. The patient received preoperative chemoradiation and has had problems with stricturing at the colorectal anastomosis, presents now with some ongoing problems with tenesmus and multiple frequent loose bowel movements. The plan is to proceed with flexible sigmoidoscopy and/or colonoscopy depending on the extent of the prep with evaluation of the colorectal anastomosis and dilation as indicated. Potential risks including bleeding and perforation were discussed, and the patient wishes to proceed. DETAILS OF PROCEDURE: The patient was taken to the operating room, placed in a left lateral decubitus position. IV sedation was administered after which the initial digital rectal exam was performed, which showed some thickening of the rectal wall, consistent with radiation changes, but otherwise was unremarkable. Colonoscope was then passed through the rectum and up to the level of the colorectal anastomosis. This was noted to be mildly narrowed. The colonoscope could be passed through the anastomosis and was then passed along to the cecum. The patient received only enemas preoperatively rather than a formal colonoscopy prep. Roughly one-third of the surface of the colon was covered with some stool, but otherwise no additional abnormalities were noted. A Bard gastrointestinal catheter was then centered across the stricture and inflated to 45- [place] size. This was held in position for 1 minute, after which balloon catheter was deflated and withdrawn little in the way of dilation was visualized. There was probably small amount of heme at the level of the stricture indicating this stricture was found to be fairly wide open and the scope then withdrawn and the procedure then concluded. 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 We will set the patient up to seeing Gastroenterology in [place] regarding any insights they might have with regard to reduction of the related to the low anterior resection syndrome. Sanchez David MD /[id number]
== END 2021-01-08 10:29 | disposition home or self-care (01) ==
LOC: JP.SDS 06:32
PROVIDERS: ATTEND Surgery
DX: K91.89 Other postprocedural complications and disorders of digestive system (principal); I10 Essential (primary) hypertension; E78.5 Hyperlipidemia, unspecified; J44.9 Chronic obstructive pulmonary disease, unspecified; Z85.048 Personal history of other malignant neoplasm of rectum, rectosigmoid junction, and anus
CPT/HCPCS: 36415; 82728; 85027; A9270-GY; J2185; J2704; J7121

== ENCOUNTER 2025-03-06 16:10 | Inpatient (IN) | payer MEDICARE, OTHER ==
[2025-03-06 17:19] LABS: BASOPHILS ABSOLUTE AUTO 0.04 K/uL (0.00-0.10); BASOPHILS PERCENT AUTO 0.3 % (0.1-1.3); EOSINOPHILS ABSOLUTE AUTO 0.09 K/uL (0.00-0.40); EOSINOPHILS PERCENT AUTO 0.6 % (0.0-5.4); HEMATOCRIT 37.4 % (38.4-49.7); HEMOGLOBIN 11.5 g/dL (12.9-16.9); IMMATURE GRAN ABSOLUTE AUTO 0.14 K/uL (0.00-0.23); LYMPHOCYTES ABSOLUTE AUTO 0.89 K/uL (0.8-3.3); LYMPHOCYTES PERCENT AUTO 6.1 % (11.4-47.7); MEAN CORPUSCULAR HEMOGLOBIN 28.9 pg (31.6-35.5); MEAN CORPUSCULAR HGB CONC 30.7 g/dL (31.6-35.5); MONOCYTES ABSOLUTE AUTO 0.99 K/uL (0.20-0.90); MONOCYTES PERCENT AUTO 6.7 % (3.3-12.6); NEUTROPHILS ABSOLUTE AUTO 12.52 K/uL (1.0-7.6); NEUTROPHILS PERCENT AUTO 85.3 % (40.0-78.1); PLATELET COUNT,PLT 352 K/uL (130-375); RED BLOOD CELL COUNT 3.98 M/uL (4.14-5.76); WHITE BLOOD CELL COUNT,WBC 14.7 K/uL (3.2-11.0)
[2025-03-06] MEDS: Sodium Chloride 0.9% 1,000 ML IV ONE (17:31)
[2025-03-06 17:44] LABS: A/G RATIO 0.5 (1.2-2.2); ALANINE AMINOTRANSFERASE,ALT 37 U/L (12-78); ALBUMIN 2.5 g/dL (3.4-5.0); ALKALINE PHOSPHATASE 141 U/L (46-116); ANION GAP 9.1 mmol/L (5.0-14.0); ASPARTATE AMNIOTRANSFERASE,AST 38 U/L (15-37); BILIRUBIN TOTAL 0.5 mg/dL (0.2-1.0); BLOOD UREA NITROGEN,BUN 15 mg/dL (7-18); C-REACTIVE PROTEIN 16.42 mg/dL (<0.50); CALCIUM 9.2 mg/dL (8.5-10.1); CARBON DIOXIDE,CO2 31 mmol/L (21-32); CHLORIDE,CL 100 mmol/L (100-108); CREATININE 0.8 mg/dL (0.8-1.3); EST CRCL DRUG DOSING (CG) 67.17 mL/min; ESTIMATED GFR 86 mL/min (>60); GLUCOSE RANDOM 118 mg/dL (74-106); POTASSIUM,K 3.7 mmol/L (3.6-5.2); PROTEIN TOTAL,TP 7.1 g/dL (6.4-8.2); SODIUM,NA 140 mmol/L (140-148)
[2025-03-06] MEDS ORDERED: SODIUM CHLORIDE 0.9% IV ONE (17:56)
[2025-03-06] MEDS ORDERED: VANCOMYCIN IV ONE (17:56)
[2025-03-06] MEDS: VANCOmycin 1.5 GM in Sodium Chloride 0.9% 250 ML IV ONE (18:13)
[2025-03-06] MEDS ORDERED: Polyethylene Glycol 3350 Powder 17 GM Packet PO PRN (19:29)
[2025-03-06] MEDS ORDERED: oxyCODONE 5 MG Tab PO PRN (19:29)
[2025-03-06] MEDS ORDERED: Ondansetron 4 MG/2 ML SDV IV PRN (19:29)
[2025-03-06] MEDS ORDERED: Sodium Chloride 0.9% 10 ML Syringe FLUSH PRN (19:29)
[2025-03-06] MEDS ORDERED: Acetaminophen 325 MG Tab PO PRN (19:29)
[2025-03-06] MEDS: Gabapentin 300 MG Cap PO SCH (19:59)
[2025-03-06] MEDS: Enoxaparin 40 MG/0.4 ML Syringe SUBCUT SCH (20:00)
[2025-03-06] MEDS: Famotidine 20 MG Tab PO SCH (20:00)
[2025-03-06] MEDS: Sodium Chloride 0.9% 1,000 ML IV SCH (20:37)
[2025-03-06] MEDS: Piperacillin/Tazobactam 4.5 GM in Sodium Chloride 0.9% 100 ML IV ONE (20:37)
[2025-03-06 20:47] LABS: APPEARANCE,URINE CLEAR (CLEAR); BILIRUBIN,URINE NEGATIVE (NEGATIVE); COLOR,URINE YELLOW (YELLOW); GLUCOSE,URINE NEGATIVE (NEGATIVE); KETONES,URINE TRACE mg/dL (NEGATIVE); LEUKOCYTE ESTERASE,URINE NEGATIVE (NEGATIVE); NITRITE,URINE NEGATIVE (NEGATIVE); OCCULT BLOOD,URINE TRACE-INTACT (NEGATIVE); PROTEIN,URINE 30 mg/dL (NEGATIVE)
[2025-03-06 20:58] LABS: AMORPHOUS SEDIMENT,URINE NOT SEEN; BACTERIA,URINE RARE; EPITHELIAL CELLS,URINE MANY; MUCUS,URINE NOT SEEN; RBC,URINE 0-5 (0-5); WBC,URINE 0-5 (0-5)
[2025-03-06] MEDS: Dorzolamide 2% Ophth Soln 10 ML Bottle EYERT SCH (21:47)
[2025-03-06] MEDS: Nystatin Topical Powder 15 GM Bottle TOP SCH (22:28)
[2025-03-07] MEDS: Piperacillin/Tazobactam 4.5 GM in Sodium Chloride 0.9% 100 ML IV SCH (00:18)
[2025-03-07 05:53] LABS: HEMATOCRIT 35.6 % (38.4-49.7); HEMOGLOBIN 10.9 g/dL (12.9-16.9); MEAN CORPUSCULAR HEMOGLOBIN 28.7 pg (31.6-35.5); MEAN CORPUSCULAR HGB CONC 30.6 g/dL (31.6-35.5); MEAN CORPUSCULAR VOLUME 93.7 fL (81.4-99.0); RED BLOOD CELL COUNT 3.8 M/uL (4.14-5.76); WHITE BLOOD CELL COUNT,WBC 13.1 K/uL (3.2-11.0)
[2025-03-07 06:09] LABS: ANION GAP 10.5 mmol/L (5.0-14.0); CALCIUM 8.8 mg/dL (8.5-10.1); CREATININE 0.7 mg/dL (0.8-1.3); EST CRCL DRUG DOSING (CG) 76.77 mL/min; MAGNESIUM 1.5 mg/dL (1.8-2.4); POTASSIUM,K 3.6 mmol/L (3.6-5.2)
[2025-03-07] MEDS: Piperacillin/Tazobactam/Dext 4.5 GM in Premix Bag 1 BAG IV SCH (08:49)
[2025-03-07] MEDS: Magnesium Sulfate 2 GM/50 mL 2 GM in Premix Bag 1 BAG IV SCH (08:50)
[2025-03-07] MEDS: Magnesium Oxide 400 MG Tab PO SCH (09:58)
[2025-03-07] MEDS: amLODIPine 5 MG Tab PO SCH (09:58)
[2025-03-07] MEDS: Venlafaxine 75 MG Cap.ER PO SCH (09:58)
[2025-03-07] MEDS: Metoprolol Succinate 25 MG Tab.ER PO SCH (09:58)
[2025-03-07] MEDS: Timolol Maleate 0.5% Ophth Soln 5 ML Bottle EYEBOTH SCH (09:59)
[2025-03-07] MEDS: Nystatin Topical Powder 15 GM Bottle TOP SCH (11:16)
[2025-03-07] MEDS: VANCOmycin 1 GM in Sodium Chloride 0.9% 250 ML IV SCH (12:27)
[2025-03-07] MEDS: Enoxaparin 40 MG/0.4 ML Syringe SUBCUT SCH (20:31)
[2025-03-07] MEDS: Famotidine 20 MG Tab PO SCH (20:31)
[2025-03-07] MEDS: Tamsulosin 0.4 MG Cap.ER PO SCH (20:31)
[2025-03-08 06:07] LABS: HEMATOCRIT 34.7 % (38.4-49.7); MEAN CORPUSCULAR HEMOGLOBIN 29.6 pg (31.6-35.5); MEAN CORPUSCULAR HGB CONC 31.7 g/dL (31.6-35.5); MEAN CORPUSCULAR VOLUME 93.5 fL (81.4-99.0); RED BLOOD CELL COUNT 3.71 M/uL (4.14-5.76); WHITE BLOOD CELL COUNT,WBC 11.4 K/uL (3.2-11.0)
[2025-03-08 06:28] LABS: CALCIUM 8.6 mg/dL (8.5-10.1); CREATININE 0.7 mg/dL (0.8-1.3); EST CRCL DRUG DOSING (CG) 76.77 mL/min; MAGNESIUM 2.1 mg/dL (1.8-2.4); POTASSIUM,K 3.5 mmol/L (3.6-5.2); VANCOMYCIN RANDOM 15.8 ug/mL (0.0-50.0)
[2025-03-08 06:31] LABS: ANION GAP 13.5 mmol/L (5.0-14.0)
[2025-03-08] MEDS: Potassium Chloride 20 MEQ Tab.ER PO ONE ×2 (09:37→18:11)
[2025-03-08] MEDS: Furosemide 20 MG/2 ML VIAL IVPUSH ONE ×2 (09:37→18:11)
[2025-03-08] MEDS: Dorzolamide 2% Ophth Soln 10 ML Bottle EYERT SCH (11:32)
[2025-03-09 05:57] LABS: HEMATOCRIT 36.6 % (38.4-49.7); HEMOGLOBIN 11.5 g/dL (12.9-16.9); MEAN CORPUSCULAR HGB CONC 31.4 g/dL (31.6-35.5); MEAN CORPUSCULAR VOLUME 92.4 fL (81.4-99.0); RED BLOOD CELL COUNT 3.96 M/uL (4.14-5.76); WHITE BLOOD CELL COUNT,WBC 14.1 K/uL (3.2-11.0)
[2025-03-09 06:17] LABS: ANION GAP 8.9 mmol/L (5.0-14.0); CALCIUM 9.1 mg/dL (8.5-10.1); CREATININE 0.8 mg/dL (0.8-1.3); EST CRCL DRUG DOSING (CG) 67.17 mL/min; POTASSIUM,K 3.9 mmol/L (3.6-5.2)
[2025-03-09] MEDS: Loperamide 2 MG Cap PO PRN (14:28)
[2025-03-09] MEDS: Furosemide 40 MG/4 ML VIAL IVPUSH ONE (15:23)
[2025-03-10 05:56] LABS: HEMATOCRIT 38.8 % (38.4-49.7); HEMOGLOBIN 11.9 g/dL (12.9-16.9); MEAN CORPUSCULAR HEMOGLOBIN 28.7 pg (31.6-35.5); MEAN CORPUSCULAR HGB CONC 30.7 g/dL (31.6-35.5); MEAN CORPUSCULAR VOLUME 93.5 fL (81.4-99.0); RED BLOOD CELL COUNT 4.15 M/uL (4.14-5.76); WHITE BLOOD CELL COUNT,WBC 10.7 K/uL (3.2-11.0)
[2025-03-10] MEDS: Furosemide 40 MG/4 ML VIAL IVPUSH ONE (15:29)
[2025-03-11] MEDS: Furosemide 40 MG/4 ML VIAL IVPUSH ONE (12:50)
[2025-03-11] MEDS: ceFAZolin 1 GM in Premix Bag 1 BAG IV SCH (12:50)
[2025-03-12 05:42] LABS: HEMATOCRIT 38.1 % (38.4-49.7); MEAN CORPUSCULAR HEMOGLOBIN 28.9 pg (31.6-35.5); MEAN CORPUSCULAR HGB CONC 31.5 g/dL (31.6-35.5); MEAN CORPUSCULAR VOLUME 91.8 fL (81.4-99.0); RED BLOOD CELL COUNT 4.15 M/uL (4.14-5.76); WHITE BLOOD CELL COUNT,WBC 12.6 K/uL (3.2-11.0)
[2025-03-12 05:56] LABS: CALCIUM 9.2 mg/dL (8.5-10.1); CREATININE 0.8 mg/dL (0.8-1.3); EST CRCL DRUG DOSING (CG) 67.17 mL/min; POTASSIUM,K 3.4 mmol/L (3.6-5.2)
[2025-03-12 05:58] LABS: ANION GAP 7.4 mmol/L (5.0-14.0)
[2025-03-12] MEDS: Potassium Chloride 20 MEQ Tab.ER PO ONE (08:53)
[2025-03-12] MEDS: Sodium Chloride 0.9% 10 ML Syringe FLUSH ONE (11:45)
[2025-03-12] MEDS: Iopamidol 612 MG/ML 100 ML Bottle IV SCH (11:45)
[2025-03-12] MEDS: Sodium Chloride 0.9% 100 ML IV SCH (11:45)
[2025-03-12] MEDS ORDERED: VANCOmycin 1 GM SDV IV SCH (15:00)
[2025-03-12] MEDS: Meropenem 1 GM in Sodium Chloride 0.9% 100 ML IV SCH (15:25)
[2025-03-12] MEDS: VANCOmycin 1 GM in Sodium Chloride 0.9% 250 ML IV SCH (16:46)
[2025-03-14 06:08] LABS: HEMATOCRIT 35.8 % (38.4-49.7); MEAN CORPUSCULAR HEMOGLOBIN 28.6 pg (31.6-35.5); MEAN CORPUSCULAR HGB CONC 30.7 g/dL (31.6-35.5); RED BLOOD CELL COUNT 3.85 M/uL (4.14-5.76); WHITE BLOOD CELL COUNT,WBC 10.4 K/uL (3.2-11.0)
[2025-03-14 06:32] LABS: C-REACTIVE PROTEIN 6.21 mg/dL (<0.50); CALCIUM 8.9 mg/dL (8.5-10.1); CREATININE 0.6 mg/dL (0.8-1.3); EST CRCL DRUG DOSING (CG) 89.56 mL/min
[2025-03-14 13:55] VITALS: BP 149/71; PULSE 81
== END 2025-03-14 14:15 | DRG 549 ==
LOC: JP.ED 16:10 → JP.MS 18:08
PROVIDERS: ADMIT Hospitalist; ATTEND Internal Medicine
DX: L03.116 Cellulitis of left lower limb (principal); M00.9 Pyogenic arthritis, unspecified; E46 Unspecified protein-calorie malnutrition; L02.612 Cutaneous abscess of left foot; L03.032 Cellulitis of left toe; H26.9 Unspecified cataract; H40.9 Unspecified glaucoma; H54.7 Unspecified visual loss; I10 Essential (primary) hypertension; J44.9 Chronic obstructive pulmonary disease, unspecified; K21.9 Gastro-esophageal reflux disease without esophagitis; F31.9 Bipolar disorder, unspecified; Z96.652 Presence of left artificial knee joint; F15.90 Other stimulant use, unspecified, uncomplicated; R35.0 Frequency of micturition; N40.1 Benign prostatic hyperplasia with lower urinary tract symptoms; D72.829 Elevated white blood cell count, unspecified; B96.89 Other specified bacterial agents as the cause of diseases classified elsewhere; Z79.60 Long term (current) use of unspecified immunomodulators and immunosuppressants; Z85.038 Personal history of other malignant neoplasm of large intestine; Z79.1 Long term (current) use of non-steroidal anti-inflammatories (NSAID); Z79.899 Other long term (current) drug therapy; Z98.49 Cataract extraction status, unspecified eye; Z90.89 Acquired absence of other organs; Z68.23 Body mass index [BMI] 23.0-23.9, adult
CPT/HCPCS: 36415; 73630; 80053; 83605; 84550; 85025; 85379; 85651; 86140; 93971; 96360; 99285; J7030; 51798; 73701-LT; 76881-26; 76881-LT; 80048; 80202; 81001; 83735; 85027; 87070; 87077; 87186; 87205; 97110-GP; 97116-GP; 97161-GP; 97165-GO; 97530-GP; 99222; 99231; 99232; 99239; 99284; A9270-GY; J0689; J1650; J1938; J2185; J2543; J3371; J3475; J7050; Q9967

== ENCOUNTER 2025-04-19 22:39 | Inpatient (IN) | payer MEDICARE, OTHER ==
[2025-04-20] MEDS: Diltiazem 25 MG/5 ML SDV IVPUSH ONE (00:08)
[2025-04-20 00:15] LABS: BASOPHILS ABSOLUTE AUTO 0.07 K/uL (0.00-0.10); BASOPHILS PERCENT AUTO 0.5 % (0.1-1.3); EOSINOPHILS ABSOLUTE AUTO 0.06 K/uL (0.00-0.40); EOSINOPHILS PERCENT AUTO 0.4 % (0.0-5.4); IMMATURE GRAN ABSOLUTE AUTO 0.39 K/uL (0.00-0.23); IMMATURE GRAN PERCENT AUTO 2.6 % (0.0-0.7); LYMPHOCYTES ABSOLUTE AUTO 2.11 K/uL (0.8-3.3); LYMPHOCYTES PERCENT AUTO 13.9 % (11.4-47.7); MONOCYTES ABSOLUTE AUTO 1.34 K/uL (0.20-0.90); MONOCYTES PERCENT AUTO 8.9 % (3.3-12.6); NEUTROPHILS ABSOLUTE AUTO 11.16 K/uL (1.0-7.6); NEUTROPHILS PERCENT AUTO 73.7 % (40.0-78.1); PLATELET COUNT,PLT 323 K/uL (130-375); RED BLOOD CELL COUNT 4.84 M/uL (4.14-5.76); WHITE BLOOD CELL COUNT,WBC 15.1 K/uL (3.2-11.0)
[2025-04-20 00:31] LABS: A/G RATIO 0.6 (1.2-2.2); ALANINE AMINOTRANSFERASE,ALT 256 U/L (12-78); ASPARTATE AMNIOTRANSFERASE,AST 274 U/L (15-37); BILIRUBIN TOTAL 1.3 mg/dL (0.2-1.0); BLOOD UREA NITROGEN,BUN 39 mg/dL (7-18); CARBON DIOXIDE,CO2 29 mmol/L (21-32); CHLORIDE,CL 98 mmol/L (100-108); CREATININE 1.2 mg/dL (0.8-1.3); ESTIMATED GFR 59 mL/min (>60); GLUCOSE RANDOM 160 mg/dL (74-106); POTASSIUM,K 4.9 mmol/L (3.6-5.2); PROTEIN TOTAL,TP 7.3 g/dL (6.4-8.2); SODIUM,NA 136 mmol/L (140-148)
[2025-04-20 00:38] LABS: LACTIC ACID 4.5 mmol/L (0.4-2.0)
[2025-04-20 02:01] LABS: APPEARANCE,URINE SLIGHTLY CLOUDY (CLEAR); GLUCOSE,URINE NEGATIVE (NEGATIVE); OCCULT BLOOD,URINE TRACE-INTACT (NEGATIVE)
[2025-04-20 02:02] LABS: EPITHELIAL CELLS,URINE FEW
[2025-04-20] MEDS: metroNIDAZOLE/Normal Saline 500 MG in Premix Bag 1 BAG IV ONE (03:12)
[2025-04-20] MEDS: Iopamidol 612 MG/ML 100 ML Bottle IV SCH (03:25)
[2025-04-20] MEDS: Sodium Chloride 0.9% 10 ML Syringe FLUSH PRN (03:25)
[2025-04-20] MEDS: Heparin Sodium 5,000 Units/ML Vial IVPUSH ONE (05:20)
[2025-04-20] MEDS ORDERED: Sodium Chloride 0.9% 10 ML Syringe FLUSH PRN (09:50)
[2025-04-20] MEDS ORDERED: TIMOLOL MALEATE EYEBOTH SCH (09:50)
[2025-04-20] MEDS ORDERED: [UNRECOGNIZED DRUG - OTHER] EYEBOTH SCH (09:50)
[2025-04-20] MEDS ORDERED: Ondansetron 4 MG/2 ML SDV IV PRN (09:50)
[2025-04-20] MEDS ORDERED: Non-Formulary Medication 1 Each (Gabapentin [Neurontin] 600 MG Tablet) PO SCH (09:50)
[2025-04-20] MEDS: Levofloxacin/Dextrose 5%-Water 750 MG in Premix Bag 1 BAG IV SCH (11:04)
[2025-04-20] MEDS: Venlafaxine 75 MG Cap.ER PO SCH (11:27)
[2025-04-20] MEDS: Timolol Maleate 0.5% Ophth Soln 5 ML Bottle EYEBOTH SCH (11:28)
[2025-04-20] MEDS ORDERED: Iopamidol 612 MG/ML 100 ML Bottle IV ONE (14:21)
[2025-04-20] MEDS ORDERED: Sodium Chloride 0.9% 10 ML Syringe FLUSH ONE (14:21)
[2025-04-20 16:00] VITALS: BP 60/35; PULSE 24
== END 2025-04-20 13:40 | disposition expired | DRG 871 ==
LOC: JP.ED 22:39 → JP.MS 04-20 08:26
PROVIDERS: ADMIT Hospitalist; ATTEND Hospitalist
DX: A41.9 Sepsis, unspecified organism (principal); I26.99 Other pulmonary embolism without acute cor pulmonale; J18.9 Pneumonia, unspecified organism; M00.9 Pyogenic arthritis, unspecified; J44.0 Chronic obstructive pulmonary disease with (acute) lower respiratory infection; R65.20 Severe sepsis without septic shock; I48.91 Unspecified atrial fibrillation; Z66 Do not resuscitate; H54.7 Unspecified visual loss; I10 Essential (primary) hypertension; J44.9 Chronic obstructive pulmonary disease, unspecified; M19.90 Unspecified osteoarthritis, unspecified site; M54.9 Dorsalgia, unspecified; G89.29 Other chronic pain; E86.0 Dehydration; F31.9 Bipolar disorder, unspecified; N40.1 Benign prostatic hyperplasia with lower urinary tract symptoms; K21.9 Gastro-esophageal reflux disease without esophagitis; R35.1 Nocturia; R33.8 Other retention of urine; Z96.659 Presence of unspecified artificial knee joint; H40.009 Preglaucoma, unspecified, unspecified eye; Z85.038 Personal history of other malignant neoplasm of large intestine; Z85.048 Personal history of other malignant neoplasm of rectum, rectosigmoid junction, and anus; Z90.49 Acquired absence of other specified parts of digestive tract; Z98.49 Cataract extraction status, unspecified eye; Z98.890 Other specified postprocedural states; Z79.2 Long term (current) use of antibiotics; Z79.1 Long term (current) use of non-steroidal anti-inflammatories (NSAID); Z90.89 Acquired absence of other organs; Z92.21 Personal history of antineoplastic chemotherapy; Z86.0100 Personal history of colon polyps, unspecified; Z93.2 Ileostomy status; Z79.899 Other long term (current) drug therapy
CPT/HCPCS: 36415; 71260; 74177; 80053; 81001; 83605 ×2; 84484 ×2; 85025; 85730; 86140; 87040 ×2; 93005; J0696; J1644 ×2; J1836; J3371; J3490; J7030; J7050; Q9967; 93010; 99284; A9270-GY; J1956